=== PATIENT | female | born 1980 | race Caucasian/White ===

== ENCOUNTER 2021-04-22 13:43 | Emergency (ER) | payer SELFPAY ==
[2021-04-22] MEDS ORDERED: HYDROMORPHONE HCL 1 MG/ML INJ ONE (14:05)
[2021-04-22] MEDS ORDERED: ONDANSETRON 4 MG/2 ML VIAL ONE (14:05)
--- NOTE | 2021-04-22 15:08 | EDPHYS ---
Physician Documentation [facility] Ramirez Name: Julia Weekly Age: 40 yrs Sex: Female : 1980 Arrival Date: 04/22/2021 Time: 13:45 Bed 16 Private MD: ED Physician Mell Parrish HPI: 04/22 15:05 This 40 yrs old Female presents to ER via Wheelchair with complaints of Rectal Pain. ma2 15:05 Patient has chronic rectal prolapse, presents with rectal prolapse for 2 hours, that ma2 she has not been able to push inside.. 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 - Social history:: Smoking status: Patient reports the use of cigarette tobacco products, smokes one-half pack cigarettes per day. - Family history:: not pertinent. ROS: 15:05 Constitutional: Negative for fever, chills, and weight loss. ma2 15:05 All other systems are negative. Exam: 15:05 Constitutional: This is a well developed, well nourished patient who is awake, alert, ma2 and in no acute distress. Head/Face: Normocephalic, atraumatic. Eyes: Pupils equal round and reactive to light, extra-ocular motions intact. Lids and lashes normal. Conjunctiva and sclera are non-icteric and not injected. Cornea within normal limits. Periorbital areas with no swelling, redness, or edema. ENT: Nares patent. No nasal discharge, no septal abnormalities noted. Tympanic membranes are normal and external auditory canals are clear. Oropharynx with no redness, swelling, or masses, exudates, or evidence of obstruction, uvula midline. Mucous membranes moist. Chest/axilla: Normal chest wall appearance and motion. Nontender with no deformity. No lesions are appreciated. Cardiovascular: Regular rate and rhythm with a normal S1 and S2. No gallops, murmurs, or rubs. Normal PMI, no JVD. No pulse deficits. Respiratory: Lungs have equal breath sounds bilaterally, clear to auscultation and percussion. No rales, rhonchi or wheezes noted. No increased work of breathing, no retractions or nasal flaring. Abdomen/GI: Rectal prolapse, soft, non-tender, with normal bowel sounds. No distension or tympany. No guarding or rebound. No evidence of tenderness throughout. Back: No spinal tenderness. No costovertebral tenderness. Full range of motion. Skin: Warm, dry with normal turgor. Normal color with no rashes, no lesions, and no evidence of cellulitis. MS/ Extremity: Pulses equal, no cyanosis. Neurovascular intact. Full, normal range of motion. Neuro: Awake and alert, GCS 15, oriented to person, place, time, and situation. Cranial nerves II-XII grossly intact. Motor strength 5/5 in all extremities. Sensory grossly intact. Cerebellar exam normal. Normal gait. Vital Signs: 13:45 BP 134 / 77; Pulse 90; Resp 17; Temp 98.1(TE); Pulse Ox 99% ; Pain 9/10; eo2 13:47 BP 151 / 91; Pulse 96; Resp 16; Pulse Ox 99% on R/A; Weight 104.33 kg; Height 5 ft. 5 iw in. (165.10 cm); Pain 10/10; 15:14 BP 147 / 76; Pulse 87; Resp 15; Pulse Ox 100% ; Pain 6/10; eo2 13:47 Body Mass Index 38.27 (104.33 kg, 165.10 cm) iw MDM: 13:49 Patient medically screened. ma2 15:05 Differential diagnosis: Rectal prolapse manually pushed in. Data reviewed: vital signs, ma2 nurses notes. Counseling: I had a detailed discussion with the patient and/or guardian regarding: the historical points, exam findings, and any diagnostic results supporting the discharge/admit diagnosis, the presence of at least one elevated blood pressure reading (>120/80) during this emergency department visit, the need for outpatient follow up. Response to treatment: the patient's symptoms have markedly improved after treatment. Administered Medications: 13:59 Not Given (Physician Discretion): morphine 4 mg IVP once; RASS on ADMIN: Combtv4, Very eo2 Agttd3, Agttd2, Rstlss1, AlertClm0, Drwsy-1, Lt Sdtn-2, Mod Sdtn-3, Dp Sdtn-4, UnArsble-5 14:19 Drug: Zofran (Ondansetron) 4 mg Route: IVP; Site: right antecubital; eo2 15:15 Follow up: Response: No adverse reaction eo2 14:19 Drug: Dilaudid (HYDROmorphone) 1 mg Route: IVP; Site: right antecubital; eo2 15:15 Follow up: Response: No adverse reaction; Pain is decreased eo2 Disposition Summary: 04/22/21 15:07 Discharge Ordered Location: Home ma2 Condition: Stable ma2 Diagnosis - Rectal prolapse ma2 Followup: ma2 - With: Jordan Duffy MD - When: Tomorrow - Reason: If symptoms return, Continuance of care Discharge Instructions: - Discharge Summary Sheet ma2 - Rectal Prolapse, Adult ma2 Forms: - Medication Reconciliation Form ma2 - Thank You Letter ma2 - Antibiotic Education ma2 - Prescription Opioid Use ma2 Prescriptions: - ketorolac 10 mg Oral tablet - take 1 tablet by ORAL route every 6 hours not to exceed 40 mg in 24hrs; 30 ma2 tablet; Refills: 0, Product Selection Permitted Signatures: Pat Anderson RN RN iw Mell Parrish MD MD ma2 Yaritza Yun RN RN eo2
--- NOTE | 2021-04-22 15:08 | ER ---
Nurse's Notes [facility] Ramirez Name: Julia Weekly Age: 40 yrs Sex: Female : 1980 Arrival Date: 04/22/2021 Time: 13:45 Bed 16 Private MD: Diagnosis: Rectal prolapse Presentation: 04/22 13:45 Chief complaint: Patient states: prolapsed rectum X 2 hours, has happened several times iw in the past but she can usually get it to go back in. Coronavirus screen: At this time, the client does not indicate any symptoms associated with coronavirus-19. Ebola Screen: Patient negative for fever greater than or equal to 101.5 degrees Fahrenheit, and additional compatible Ebola Virus Disease symptoms Patient denies exposure to infectious person. Patient denies travel to an Ebola-affected area in the 21 days before illness onset. No symptoms or risks identified at this time. Initial Sepsis Screen: Does the patient meet any 2 criteria? No. Patient's initial sepsis screen is negative. Does the patient have a suspected source of infection? No. Patient's initial sepsis screen is negative. Risk Assessment: Do you want to hurt yourself or someone else? Patient reports no desire to harm self or others. Onset of symptoms was April 22, 2021. 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 - Social history:: Smoking status: Patient reports the use of cigarette tobacco products, smokes one-half pack cigarettes per day. - Family history:: not pertinent. Screenin:45 Abuse screen: Denies threats or abuse. Denies injuries from another. Nutritional eo2 screening: No deficits noted. Tuberculosis screening: No symptoms or risk factors identified. Fall Risk None identified. Assessment: 14:20 General: Appears uncomfortable, Behavior is crying. Pain: Complains of pain in rectum. eo2 Neuro: Level of Consciousness is awake, alert, obeys commands, Oriented to person, place, time, situation, Denies dizziness, headache. Cardiovascular: No deficits noted. Denies chest pain. Respiratory: No deficits noted. Breath sounds are clear bilaterally. Denies cough, shortness of breath. : Reports rectal prolapse for 2-3 hours. Vital Signs: 13:45 BP 134 / 77; Pulse 90; Resp 17; Temp 98.1(TE); Pulse Ox 99% ; Pain 9/10; eo2 13:47 BP 151 / 91; Pulse 96; Resp 16; Pulse Ox 99% on R/A; Weight 104.33 kg; Height 5 ft. 5 iw in. (165.10 cm); Pain 10/10; 15:14 BP 147 / 76; Pulse 87; Resp 15; Pulse Ox 100% ; Pain 6/10; eo2 13:47 Body Mass Index 38.27 (104.33 kg, 165.10 cm) iw ED Course: 13:45 Patient arrived in ED. ds1 13:45 Allergy band placed. Pulse ox on. NIBP on. Door closed. Noise minimized. Warm blanket eo2 given. 13:45 Verbal reassurance given. eo2 13:45 No provider procedures requiring assistance completed. eo2 13:46 Yaritza Yun, ALVIN is Primary Nurse. eo2 13:47 Triage completed. iw 13:47 Arm band placed on. iw 13:49 Mell Parrish MD is Attending Physician. ma2 14:18 Inserted saline lock: 22 gauge in right antecubital area, using aseptic technique. eo2 15:07 Jordan Duffy MD is Referral Physician. ma2 15:22 IV discontinued, intact. eo2 16:18 contacted pt about belongings that were left in the room after the pt left. was told to bd throw items in the trash. I did not throw them away, I sent the belongings to security. Administered Medications: 13:59 Not Given (Physician Discretion): morphine 4 mg IVP once; RASS on ADMIN: Combtv4, Very eo2 Agttd3, Agttd2, Rstlss1, AlertClm0, Drwsy-1, Lt Sdtn-2, Mod Sdtn-3, Dp Sdtn-4, UnArsble-5 14:19 Drug: Zofran (Ondansetron) 4 mg Route: IVP; Site: right antecubital; eo2 15:15 Follow up: Response: No adverse reaction eo2 14:19 Drug: Dilaudid (HYDROmorphone) 1 mg Route: IVP; Site: right antecubital; eo2 15:15 Follow up: Response: No adverse reaction; Pain is decreased eo2 Outcome: 15:07 Discharge ordered by . ma2 15:22 Discharged to home ambulatory. eo2 15:22 Condition: stable 15:22 Discharge instructions given to patient, Instructed on discharge instructions, follow up and referral plans. medication usage, Demonstrated understanding of instructions, follow-up care, medications, Prescriptions given X 1. 15:23 Patient left the ED. eo2 Signatures: Megan Juan Demi ds1 Pat Anderson, RN RN iw Mell Parrish MD MD ma2 Yaritza Yun RN RN eo2
[2021-04-22 15:45] VITALS: BP 147/76; O2SAT 100
[2021-04-22 15:55] VITALS: TEMP 98.1
== END 2021-04-22 15:23 | disposition home or self-care (01) ==
LOC: ER 13:43
DX: K62.3 Rectal prolapse (principal); F17.210 Nicotine dependence, cigarettes, uncomplicated
CPT/HCPCS: 96374; 96375; 99284; J1170; J2405

== ENCOUNTER 2021-04-25 01:51 | Emergency (ER) | payer SELFPAY ==
--- OUTSIDE RECORDS SUMMARY | 2021-04-25 01:55 | XMS REPORT | Continuity of Care Document ---
:1980 Author Organization [facility] t Address [address] [place] [address] [address] [place] [address] Care Team Providers Name Role Phone Unavailable Unavailable Unavailable Problems This patient has no known problems. Allergies, Adverse Reactions, Alerts This patient has no known allergies or adverse reactions. Medications This patient has no known medications. Procedures This patient has no known procedures. Results Test Description Test Time Test Comments Results Result Comments Source LIPID PANEL 2021-03-15 04:30:14 Test Item Value Reference Range Interpretation Comme nts CHOLESTEROL (test code = 2210) 186 MG/DL <200 TRIGLYCERIDES (test code = 2232) 149 MG/DL <150 HDL CHOLESTEROL (test code = 49 MG/DL >39 2219) CALC LDL CHOL (test code = 2237) 111 MG/DL <100 H NOTE: CALCULATED LDL IS BASED ON ABELARDO-BUCIO METHOD WHICHINCLUDES A DJUSTABLE TRIGLYCERIDE:VL DL CHOLESTEROL RATIO.THIS FACT OR VARIES BY MEASURED TRIGLY CERIDE AND NON-HDLCHOLESTE ROL CONCENTRATIONS WITH INCREASED CALCULATED LDL SEENIN HIGHER T RIGLYCERIDE OR LOWER NON-HDL S PECIMENS. FOR MOREINFORMATION , SEE CLIENT ANNOUNCEMENT AT [email or web address] [email or web address] LDL/HDL (test code = 2.27 RATIO <3.22 8) COMPREHENSIVE METABOLIC [id number] 04:30:14 Test Item Value Reference Range Interpretation Comments GLUCOSE (test code = 100 MG/DL 70-99 H 2216) BUN (test code = 14 MG/DL -2207) CREATININE (test 0.69 MG/DL 0.60-1.30 code = 2214) eGFR (2020 CKD-EPI) 112 >60 (test code = 77796) ML/MIN/1.73 CALC BUN/CREAT (test 20 RATIO - code = 2235) SODIUM (test code = 141 MEQ/L 969-025 6251) POTASSIUM (test code 4.4 MEQ/L 3.5-5.4 = 2227) CHLORIDE (test code 105 MEQ/L 95-107 = 2214) CARBON DIOXIDE (test 25 MEQ/L 19-31 code = 220) CALCIUM (test code = 9.5 MG/DL 8.5-10.5 2208) PROTEIN, TOTAL (test 7.3 G/DL 6.1-8.3 code = 2228) ALBUMIN (test code = 4.3 G/DL 3.5-5.2 2200) CALC GLOBULIN (test 3.0 G/DL 1.9-3.7 code = 2239) CALC A/G RATIO (test 1.4 RATIO 1.0-2.6 code = 223) BILIRUBIN, TOTAL 0.2 MG/DL See_Comment [Automated message] (test code = 220) The syste m which generated this result transmitted ref erence range: <=1.2. T he reference range was not used to int erpret this result as normal/abnormal . ALKALINE PHOSPHATASE 84 U/L 40-113 (test code = 2203) AST (test code = 16 U/L 9-40 2217) ALT (test code = 23 U/L 5-40 UNLE SS 2218) OTHERWISE INDIC ATED, ALL TESTING PER [facility], [address] [place] [address] LABORATORY DIRE CTOR: VALENTIN CRUZ M.D. CLIA NUMBER [id number] CAP ACCREDITATION N O. [id number]
--- NOTE | 2021-04-25 03:35 | EDPHYS ---
Physician Documentation [facility] Ramirez Name: Julia Weekly Age: 40 yrs Sex: Female : 1980 Arrival Date: 04/25/2021 Time: 01:57 Bed 7 Private MD: ED Physician Sarai Victor HPI: 04/25 02:37 This 40 yrs old Female presents to ER via Ambulatory with complaints of Arm Pain, Pedal sp3 Edema. 02:37 40-year-old female with a history of rectal prolapse seen here 3 days ago presents with sp3 left upper extremity antecubital swelling and pain and left lower extremity swelling. Patient states that the nursing staff had a hard time placing an IV and were "digging around". Patient has not injured her left lower extremity at all. No prior history of DVT/PE or travel history. No symptoms on the right side of the body at all. Patient denies headache, neck pain, shortness of breath, chest pain abdominal pain, nausea, vomiting, diarrhea, rash, or any other symptoms as a part of ROS at this time.. 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 Flu vaccine is not up to date. - Social history:: Smoking status: Patient reports the use of cigarette tobacco products, smokes one pack cigarettes per day. Patient/guardian denies using alcohol, street drugs, IV drugs. ROS: 02:39 Constitutional: Negative for fever, chills, and weight loss, Eyes: Negative for injury, sp3 pain, redness, and discharge, ENT: Negative for injury, pain, and discharge, Neck: Negative for injury, pain, and swelling, Cardiovascular: Negative for chest pain, palpitations, and edema, Respiratory: Negative for shortness of breath, cough, wheezing, and pleuritic chest pain, Abdomen/GI: Negative for abdominal pain, nausea, vomiting, diarrhea, and constipation, Back: Negative for injury and pain, Skin: Negative for injury, rash, and discoloration, Neuro: Negative for headache, weakness, numbness, tingling, and seizure, Psych: Negative for depression, anxiety, suicide ideation, homicidal ideation, and hallucinations, Allergy/Immunology: Negative for hives, rash, and allergies, Endocrine: Negative for neck swelling, polydipsia, polyuria, polyphagia, and marked weight changes. Exam: 02:39 Constitutional: This is a well developed, well nourished patient who is awake, alert, sp3 and in no acute distress. Head/Face: Normocephalic, atraumatic. Eyes: Pupils equal round and reactive to light, extra-ocular motions intact. Lids and lashes normal. Conjunctiva and sclera are non-icteric and not injected. Cornea within normal limits. Periorbital areas with no swelling, redness, or edema. ENT: Nares patent. No nasal discharge, no septal abnormalities noted. External auditory canals are clear. Oropharynx with no redness, swelling, or masses, exudates, or evidence of obstruction, uvula midline. Mucous membranes moist. Neck: Trachea midline, no thyromegaly or masses palpated, and no cervical lymphadenopathy. Supple, full range of motion without nuchal rigidity, or vertebral point tenderness. No Meningismus. Chest/axilla: Normal chest wall appearance and motion. Nontender with no deformity. No lesions are appreciated. Cardiovascular: Regular rate and rhythm with a normal S1 and S2. No gallops, murmurs, or rubs. Normal PMI, no JVD. No pulse deficits. Respiratory: Lungs have equal breath sounds bilaterally, clear to auscultation and percussion. No rales, rhonchi or wheezes noted. No increased work of breathing, no retractions or nasal flaring. Abdomen/GI: Soft, non-tender, with normal bowel sounds. No distension or tympany. No guarding or rebound. No evidence of tenderness throughout. Back: No spinal tenderness. No costovertebral tenderness. Full range of motion. Skin: Warm, dry with normal turgor. Normal color with no rashes, no lesions, and no evidence of cellulitis. Neuro: Awake and alert, GCS 15, oriented to person, place, time, and situation. Cranial nerves II-XII grossly intact. Motor strength 5/5 in all extremities. Sensory grossly intact. Cerebellar exam normal. Normal gait. Psych: Awake, alert, with orientation to person, place and time. Behavior, mood, and affect are within normal limits. 02:39 Musculoskeletal/extremity: Normal neurovascular exam all extremities. Left upper extremity is mildly swollen in the AC area without evidence of superficial thrombophlebitis, inflammation/infection, or any other findings. Left lower extremity is swollen with 2+ pitting edema up to the base of the knee. No symptoms on the right side of the body. No signs of trauma.. 02:40 ECG was reviewed by the Attending Physician. EKG demonstrates normal sinus rhythm at 93 sp3 bpm with normal intervals, normal axis, normal QRS, nonspecific diffuse ST/T changes without evidence of ischemia. Vital Signs: 02:10 BP 159 / 120; Pulse 100; Resp 19 S; Temp 97.9(TE); Pulse Ox 100% on R/A; Weight 104.33 lg3 kg (R); Height 5 ft. 5 in. (165.10 cm) (R); Pain 3/10; 02:27 Pain 0/10; tw5 02:41 BP 140 / 84; Pulse 96; Resp 16; Pulse Ox 100% ; tw5 03:39 BP 135 / 65; Pulse 90; Resp 16; Pulse Ox 100% on R/A; st1 02:10 Body Mass Index 38.27 (104.33 kg, 165.10 cm) lg3 MDM: 02:23 Patient medically screened. sp3 02:41 Data reviewed: vital signs, nurses notes. ED course: 40-year-old female with left upper sp3 extremity and left lower extremity swelling. Upper extremity potentially could be caused by superficial thrombophlebitis in the prior IV. Will obtain ultrasounds for both left upper and left lower extremities. I am not highly suspicious for ACS, PE, TAD, sepsis, shock, or any other critical findings at this time. If work-up is negative will discharge patient home.. 03:34 ED course: Patient is negative for DVT in left upper and left lower extremities. Will sp3 reassure and discharge patient home at this time.. 04/25 02:32 Order name: US Extremity Venous Unilateral Ltd sp3 04/25 02:32 Order name: EKG - Nurse/Tech; Complete Time: 02:41 sp3 04/25 02:57 Order name: UPPER EXTREMITY VENOUS UNILATE EDMS Administered Medications: No medications were administered Disposition Summary: 04/25/21 03:35 Discharge Ordered Location: Home sp3 Condition: Stable sp3 Diagnosis - Edema, unspecified sp3 Followup: sp3 - With: Private Physician - When: As needed - Reason: If symptoms return Discharge Instructions: - Discharge Summary Sheet sp3 - Edema, [id number] sp3 Forms: - Medication Reconciliation Form sp3 - Thank You Letter sp3 - Antibiotic Education sp3 - Prescription Opioid Use sp3 Signatures: Dispatcher [employer] EDMS Sarai Victor MD MD sp3 Tala Walker 5 Corrections: (The following items were deleted from the chart) 02:57 02:33 Extremity Venous Uni Ltd+[email or web address].RAD.[email or web address] ordered. EDMS EDMS
--- NOTE | 2021-04-25 03:35 | ER ---
Nurse's Notes [facility] Name: Julia Weekly Age: 40 yrs Sex: Female : 1980 Arrival Date: 04/25/2021 Time: 01:57 Bed 7 Private MD: Diagnosis: Edema, unspecified Presentation: 04/25 02:10 Chief complaint: Patient states: bilateral foot and ankle swelling. left arm pain. lg3 states was seen here 3 days ago for rectal prolapse and has been swelling ever since. Coronavirus screen: Client denies travel out of the [place] in the last 14 days. At this time, the client does not indicate any symptoms associated with coronavirus-19. Ebola Screen: No symptoms or risks identified at this time. Initial Sepsis Screen: Does the patient meet any 2 criteria? Systolic BP < 90 mmHg. No. Patient's initial sepsis screen is negative. Does the patient have a suspected source of infection? No. Patient's initial sepsis screen is negative. Risk Assessment: Do you want to hurt yourself or someone else? Patient reports no desire to harm self or others. Onset of symptoms was April 22, 2021. 02:10 Method Of Arrival: Ambulatory lg3 02:10 Acuity: ANGEL 3 lg3 Triage Assessment: 02:10 General: Appears in no apparent distress. comfortable, Behavior is calm, cooperative. lg3 Pain: Complains of pain in right foot and left foot, right ankle and left ankle, left arm. EENT: No deficits noted. No signs and/or symptoms were reported regarding the EENT system. Neuro: No deficits noted. Level of Consciousness is awake, alert, obeys commands, Oriented to person, place, time, situation. Cardiovascular: No deficits noted. Respiratory: No deficits noted. Airway is patent Trachea midline Respiratory effort is even, unlabored, Respiratory pattern is regular, symmetrical. GI: No deficits noted. No signs and/or symptoms were reported involving the gastrointestinal system. Abdomen is round non-distended. : No deficits noted. No signs and/or symptoms were reported regarding the genitourinary system. Derm: No deficits noted. Skin is intact, is healthy with good turgor, Skin is dry, SYEDA foot/ankle swelling. Musculoskeletal: No deficits noted. Circulation, motion, and sensation intact. Range of motion: intact in all extremities. 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 Flu vaccine is not up to date. - Social history:: Smoking status: Patient reports the use of cigarette tobacco products, smokes one pack cigarettes per day. Patient/guardian denies using alcohol, street drugs, IV drugs. Screenin:23 Abuse screen: Denies threats or abuse. Denies injuries from another. Nutritional lg3 screening: No deficits noted. Tuberculosis screening: No symptoms or risk factors identified. Fall Risk None identified. Assessment: 02:26 Reassessment: Patient appears in no apparent distress at this time. Patient is alert, tw5 oriented x 3, equal unlabored respirations, skin warm/dry/pink. Left leg and foot swelling. Vital Signs: 02:10 BP 159 / 120; Pulse 100; Resp 19 S; Temp 97.9(TE); Pulse Ox 100% on R/A; Weight 104.33 lg3 kg (R); Height 5 ft. 5 in. (165.10 cm) (R); Pain 3/10; 02:27 Pain 0/10; tw5 02:41 BP 140 / 84; Pulse 96; Resp 16; Pulse Ox 100% ; tw5 03:39 BP 135 / 65; Pulse 90; Resp 16; Pulse Ox 100% on R/A; st1 02:10 Body Mass Index 38.27 (104.33 kg, 165.10 cm) lg3 ED Course: 01:57 Patient arrived in ED. wm 02:15 Patient has correct armband on for positive identification. Placed in gown. Bed in low st1 position. Call light in reach. Side rails up X 1. 02:17 Zakia Sofia, ALVIN is Primary Nurse. kd3 02:18 Sarai Victor MD is Attending Physician. sp3 02:21 Triage completed. lg3 02:22 Arm band placed on right wrist. tw5 02:25 No provider procedures requiring assistance completed. tw5 03:36 US Extremity Venous Unilateral Ltd Sent. st1 03:36 UPPER EXTREMITY VENOUS UNILATE Sent. st1 03:39 Patient did not have IV access during this emergency room visit. st1 04:02 US Extremity Venous Unilateral Ltd In Process Unspecified. EDMS 04:02 UPPER EXTREMITY VENOUS UNILATE In Process Unspecified. EDMS Administered Medications: No medications were administered Outcome: 03:35 Discharge ordered by . sp3 03:39 Discharged to home ambulatory. st1 03:39 Condition: good 03:39 Discharge instructions given to patient, Instructed on discharge instructions, follow up and referral plans. Demonstrated understanding of instructions, follow-up care. 03:45 Patient left the ED. st1 Signatures: Dispatcher [employer] EDMS Belle Miller, RN RN lg3 Zahraa Rojas Sarai Victor MD MD sp3 Tala Walker 5 Zakia Sofia RN RN kd3 Henna Chavira, RN RN st1 Corrections: (The following items were deleted from the chart) 03:07 03:06 Reassessment: st1 st1 03:40 02:00 Patient has correct armband on for positive identification. Fall risk band st1 placed. Placed in gown. Bed in low position. Call light in reach. Side rails up X 1. st1
--- NOTE | 2021-04-25 07:04 | RAD REPORT ---
EXAM DESCRIPTION: US - Extremity Venous Uni Ltd - 04/25/2021 4:03 am CLINICAL HISTORY: Swelling COMPARISON: None. TECHNIQUE: Real-time sonographic evaluation of the left lower extremity deep venous system was perfo rmed. FINDINGS: Normal compressibility, flow augmentation, phasic flow and spontaneous flow is identified in the left lower extremity deep venous system. No intraluminal filling defects seen. IMPRESSION: No DVT in the left lower extremity.
--- NOTE | 2021-04-25 07:06 | RAD REPORT ---
EXAM DESCRIPTION: US - UPPER EXTREMITY VENOUS UNILATE - 04/25/2021 4:03 am CLINICAL HISTORY: SWELLING COMPARISON: Extremity Venous Uni Ltd dated 04/25/2021 FINDINGS: Color Doppler, grayscale, and spectral analysis was performed. Note that some of the image s are mislabeled as arteries. Patent left internal jugular, left subclavian, left axillary, left brachial, left basilic, left ulnar , left radial veins are patent. IMPRESSION: No venous thrombosis in the left upper extremity.
[2021-04-25 07:47] VITALS: O2SAT 100
[2021-04-25 07:49] VITALS: TEMP 97.9
[2021-04-25 07:50] VITALS: BP 135/65
--- NOTE | 2021-04-25 11:29 | EKG ---
Test Date: 2021-04-25 Test Time: 02:36:46 Manager Of Photography: MOLLY MEASUREMENT RESULTS: Intervals: Rate: 93 OK: 134 QRSD: 82 QT: 388 QTc: 482 [place]: P: 23 OK: 134 QRS: 35 T: 20 INTERPRETIVE STATEMENTS: Normal sinus rhythm Normal ECG No previous ECG available for comparison Electronically Signed On 04-25-21 11:28:48 DIESEL TRACTOR OPERATOR by Naveed Gillespie
== END 2021-04-25 03:45 | disposition home or self-care (01) ==
LOC: ER 01:51
DX: R60.9 Edema, unspecified (principal); F17.210 Nicotine dependence, cigarettes, uncomplicated
CPT/HCPCS: 93005; 93971; 99283

== ENCOUNTER 2021-12-21 01:06 | Emergency (ER) | payer BC, SELFPAY ==
--- OUTSIDE RECORDS SUMMARY | 2021-12-21 01:10 | XMS REPORT | Continuity of Care Document ---
:1980 Author Organization [facility] t Address [address] [place] [address] Care Team Providers Name Role Phone Pcp, Patient Does Not Have A Primary Care Physician +[id number] DUY WOODRUFF Attending Clinician Unavailable Duy Woodruff MD Attending Clinician YOKASTA HERNANDEZ Attending Clinician Unavailable Duc Rodriguez CRNA Attending Clinician Shi [place] MD Attending Clinician Doctor Unassigned, [place] Attending Clinician Unavailable DUY WOODRUFF Admitting Clinician Unavailable Duy Woodruff MD Admitting Clinician Payers Payer Name Policy Type Policy Number Effective Date Expiration Date Melba BILLY BCBS BLUE [id number] 2021 ADVANTAGE HMO 00:00:00 Problems Condition Condition Condition Status Onset Resolution Last Treating Co mments Source Name Details Category Date Date Treatment Clinician Date Morbid Morbid Disease Active 2021-02 Univers obesity obesity 0-21 ity of with [place] mass index mass index 00 Me dical of of Branch 40.0-49.9 40.0-49.9 Constipati Constipati Disease Active U nivers on on 06-23 ity of 00:00: [place] [address] Medical Branch Rectal Rectal Disease Active Univers prolapse prolapse 06-22 ity of 00:00: [place] [address] Medical Branch Allergies, Adverse Reactions, Alerts Allergy Allergy Status Severity Reaction(s) Onset Inactive Treating Comm ents Source Name Type Date Date Clinician NO KNOWN Drug Active Univers ALLERGIE Class ity of S [facility] Social History Social Habit Start Date Stop Date Quantity Comments Source History of Cigarette Smoker Universi ty of tobacco use [facility] Exposure to 2021-11-25 2021-12-05 Not sure University of SARS-CoV-2 00:00:00 14:20:00 [facility] (event) Branch Tobacco use and 2021-12-05 2021-12-05 Smokeless tobacco Un iversity of exposure 00:00:00 00:00:00 non-user [facility] Tobacco Comment 2021-12-05 2021-12-05 Trying to quit Unive rsity of 00:00:00 00:00:00 [facility] Sex Assigned At [birth year] Universit y of 00:00:00 00:00:00 [facility] Smoking Status Start Date Stop Date Source Occasional tobacco smoker 2021-12-05 00:00:00 Un iversity of [facility] Tobacco smoking consumption Univ ersity of [facility] unknown Branch Medications Ordered Filled Start Stop Current Ordering Indication Dosage Frequency Signature Comments Components Source Medication Medication Date Date Medication? Clinician (SIG) Name Name lactated 2021-02 Yes 1000mL at 100 Unive rs ringers IV 0-21 mL/hr, ity of infusion 18:15: 1,000 [place] 1[place]000 [place] 00 IV Medical Infusion, Branch CONTINUOUS , Starting on Wed12/12/21 at 1315, Until Discontinu ed, Routine, PACU lactated 2021-02- No 1000mL at 100 Univ ers ringers IV 0-21 10-21 mL/hr, ity of infusion 18:15: 21:14 1,000 mL, [place] 1,000 mL 00 :53 IV Medical Infusion, Branch CONTINUOUS , Starting on Wed12/12/21 at 1315, Until Wed12/12/21 at 1614, Routine, PACU ondansetron 2021-02 Yes 4mg 4 mg, Slow Univers (ZOFRAN 0-21 IV Push, ity of (PF)) 18:06: PRN, 1 [place] injection 4 04 dose, Medical mg Starting Branch on Wed12/12/21 at 1306, Until Discontinu ed, Routine, Nausea and Vomiting (N/V), PACU ondansetron 2021-02- No 4mg 4 mg, Slow Univers (ZOFRAN 012-12 IV Push, ity of (PF)) 18:06: 21:14 PRN, 1 [place] injection 4 04 :53 dose, Medical mg Starting Branch on Wed12/12/21 at 1306, Until Wed12/12/21 at 1614, Routine, Nausea and Vomiting (N/V), PACU lidocaine 2021-02- No Slow IV Univ ers 1% 012-12 Push, ONCE ity of (XYLOCAINE) 17:20: 17:45 INTRA [place] 100 mg/10 00 :09 PROCEDURE, Medi dalia mL (1 %) Starting Branch injection on Wed12/12/21 at 1220, Until Wed12/12/21 at 1245, Routine, Intra-op propofoL IV 2021-02- No IV Unive rs infusion 012-12 Infusion, ity o f 17:20: 17:45 ONCE INTRA [place] 00 :09 PROCEDURE, Medical Starting Branch on Wed12/12/21 at 1220, Until Wed12/12/21 at 1245, Routine, Intra-op propofoL IV 2021-02- No IV Unive rs infusion 012-12 Infusion, ity o f 17:20: 17:45 CONTINUOUS [place] 00 :09 PRN, Medical Starting Branch on Wed12/12/21 at 1220, Until Wed12/12/21 at 1245, Routine, Intra-op lactated 2021-02- No IV Univers ringers IV 012-12 Infusion, ity of infusion 16:58: 17:45 [place]INUOUS [place] 00 :09 PRN, Medical Starting Branch on Wed12/12/21 at 1158, Until Wed12/12/21 at 1245, Routine, Intra-op midazolam 2021-02- No IV Push, Uni vers (VERSED) 0- ONCE INTRA ity of injection 16:58: 17:45 PROCEDURE, [place] 00 :09 Starting Medical on Fri Branch 12/12/21 at 1158, Until Wed12/12/21 at 1245, Routine, Intra-op water for 2021-02- No PRN, Univers irrigation 012-12 Starting ity of irrigation 16:03: 18:05 on Fri [place] solution 00 :12 12/12/21 Medical at 1103, Branch Until Wed12/12/21 at 1305, Routine, Intra-op simethicone 2021-02- No PRN, Unive rs (GAS RELIEF 0-21 12-12 Starting ity of (SIMETHICON 16:03: 18:05 on Fri [place] as E)) 40 00 :12 12/12/21 Medical mg/0.6 mL at 1103, Branch drops Until Wed12/12/21 at 1305, Routine, Intra-op lactated 2021-02- No 1000mL at 42 Unive rs ringers IV 0-21 10-21 mL/hr, ity of infusion 14:30: 14:36 1,000 mL, [place] 1,000 mL 00 :00 IV Medical Infusion, Branch ONCE, 1 dose, On Wed12/12/21 at 0930, Routine, DSU Pre-op lactated 2021-02- No 1000mL at 42 Unive rs ringers IV 0-21 10-21 mL/hr, ity of infusion 14:30: 14:36 1,000 mL, [place] 1,000 mL 00 :00 IV Medical Infusion, Branch ONCE, 1 dose, On Wed12/12/21 at 0930, Routine, DSU Pre-op meloxicam 2021-02 Yes 7.5mg Take 7.5 Uni vers 7.5 mg 0-21 mg by ity of tablet 14:14: mouth in [place] [address] the Medical morning Branch and 7.5 mg in the evening. lisinopriL 2021-02 Yes 10mg Take 10 mg U nivers 10 mg 0-21 by mouth ity of tablet 14:14: in the [place] [address] morning. [facility] Er meloxicam 2021-02 Yes 7.5mg Take 7.5 Uni vers 7.5 mg 0-21 mg by ity of tablet 14:14: mouth in [place] [address] the [facility] morning Branch and 7.5 mg in the evening. lisinopriL 2021-02 Yes 10mg Take 10 mg U nivers 10 mg 0-21 by mouth ity of tablet 14:14: in the [place] [address] morning. [facility] Er meloxicam 2021-02 Yes 7.5mg Take 7.5 Uni vers 7.5 mg 0-21 mg by ity of tablet 14:14: mouth in [place] [address] the Medical morning Branch and 7.5 mg in the evening. lisinopriL 2021-02 Yes 10mg Take 10 mg U nivers 10 mg 0-21 by mouth ity of tablet 14:14: in the [place] [address] morning. Medical Branch meloxicam 2021-02 Yes 7.5mg Take 7.5 Uni vers 7.5 mg 0-21 mg by ity of tablet 14:14: mouth in [place] [address] the Medical morning Branch and 7.5 mg in the evening. lisinopriL 2021-02 Yes 10mg Take 10 mg U nivers 10 mg 0-21 by mouth ity of tablet 14:14: in the [place] [address] morning. Medical Branch sodium,pota 2021-02- Yes 117mL Take 117 Univers ssium,mag 0-11 10-12 mL by ity of sulfates 00:00: 04:59 mouth once [place] 17.5-3.13-1 00 :00 now for 1 Med ical .6 gram dose. Branch sodium,pota 2021-02- No 117mL Take 117 Univers ssium,mag 0-11 10-12 mL by ity of sulfates 00:00: 04:59 mouth once [place] 17.5-3.13-1 00 :00 now for 1 Med ical .6 gram dose. Branch sodium,pota 2021-02- No 117mL Take 117 Univers ssium,mag 0-11 10-12 mL by ity of sulfates 00:00: 04:59 mouth once [place] 17.5-3.13-1 00 :00 now for 1 Med ical .6 gram dose. Branch polyethylen Yes 17g Take 17 g U nivers e glycol 5-01 by mouth ity of (MIRALAX) 00:00: daily. Medical gram/dose Branch powder mineral oil Yes 30mL Take 30 mL Univers oral liquid 5-01 by mouth ity of 00:00: daily. [place] [facility] polyethylen Yes 17g Take 17 g U nivers e glycol 5-01 by mouth ity of (MIRALAX) 00:00: daily. [place] Medical gram/dose Branch powder mineral oil 2018-0 Yes 30mL Take 30 mL Univers oral liquid 5-01 by mouth ity of 00:00: daily. Medical Branch polyethylen 2018-0 Yes 17g Take 17 g U nivers e glycol 5-01 by mouth ity of (MIRALAX) 00:00: daily. Medical gram/dose Branch powder mineral oil 2018-0 Yes 30mL Take 30 mL Univers oral liquid 5-01 by mouth ity of 00:00: daily. Medical Branch polyethylen 2018-0 Yes 17g Take 17 g U nivers e glycol 5-01 by mouth ity of (MIRALAX) 00:00: daily. Medical gram/dose Branch powder mineral oil 2018-0 Yes 30mL Take 30 mL Univers oral liquid 5-01 by mouth ity of 00:00: daily. Medical Branch polyethylen 2018-0 Yes 17g Take 17 g U nivers e glycol 5-01 by mouth ity of (MIRALAX) 00:00: daily. Medical gram/dose Branch powder mineral oil 2018-0 Yes 30mL Take 30 mL Univers oral liquid 5-01 by mouth ity of 00:00: daily. Medical Branch polyethylen 2018-0 Yes 17g Take 17 g U nivers e glycol 5-01 by mouth ity of (MIRALAX) 00:00: daily. Medical gram/dose Branch powder mineral oil 2018-0 Yes 30mL Take 30 mL Univers oral liquid 5-01 by mouth ity of 00:00: daily. Medical Branch polyethylen 2018-0 Yes 17g Take 17 g U nivers e glycol 5-01 by mouth ity of (MIRALAX) 00:00: daily. Medical gram/dose Branch powder mineral oil 2018-0 Yes 30mL Take 30 mL Univers oral liquid 5-01 by mouth ity of 00:00: daily. [address] Vital Signs Vital Name Observation Time Observation Value Comments Source Systolic blood 2021-12-12 18:07:00 119 mm[Hg] Univer sity of pressure [facility] Diastolic blood 2021-12-12 18:07:00 90 mm[Hg] Unive rsity of pressure [facility] Respiratory rate 2021-12-12 18:07:00 20 /min Univ ersity of [place] [facility] Oxygen saturation in 2021-12-12 18:07:00 96 /min University of Arterial blood by [place] Medi dalia Pulse oximetry Branch Body temperature 2021-12-12 17:47:00 36.39 Marbella Univ ersity of [place] [facility] Heart rate 2021-12-12 14:23:00 88 /min Universi ty of [place] [facility] Body height 2021-12-02 15:52:00 165.1 cm Universi ty of [place] [facility] Body weight 2021-12-02 15:52:00 120.9 kg Universi ty of [place] [facility] BMI 2021-12-02 15:52:00 44.35 kg/m2 Universi ty of [place] [facility] Respiratory rate 2021-12-12 17:42:00 27 /min Univ ersity of [place] [facility] Systolic blood 2021-12-12 14:23:00 160 mm[Hg] Univer sity of pressure [place] [facility] Diastolic blood 2021-12-12 14:23:00 96 mm[Hg] Unive rsity of pressure [place] [facility] Heart rate 2021-12-12 14:23:00 88 /min Universi ty of [place] [facility] Body temperature 2021-12-12 14:23:00 36.61 Marbella Univ ersity of [place] [facility] Respiratory rate 2021-12-12 14:23:00 20 /min Univ ersity of [place] [facility] Oxygen saturation in 2021-12-12 14:23:00 93 /min University of Arterial blood by [place] Medi dalia Pulse oximetry Branch Body height 2021-12-02 15:52:00 165.1 cm Universi ty of [place] [facility] Body weight 2021-12-02 15:52:00 120.9 kg Universi ty of [place] [facility] BMI 2021-12-02 15:52:00 44.35 kg/m2 Universi ty of [place] [facility] Body height 2021-11-28 16:32:00 165.1 cm Universi ty of [place] [facility] Body weight 2021-11-28 16:32:00 120.929 kg Universi ty of [place] [facility] BMI 2021-11-28 16:32:00 44.36 kg/m2 Universi ty of [place] [facility] Oxygen saturation in 2021-11-28 16:32:00 100 /min University of Arterial blood by [place] Medi dalia Pulse oximetry Branch Systolic blood 2021-11-28 16:32:00 160 mm[Hg] Univer sity of pressure [facility] Diastolic blood 2021-11-28 16:32:00 100 mm[Hg] Unive rsity of pressure [facility] Heart rate 2021-11-28 16:32:00 100 /min [facility] Body temperature 2021-11-28 16:32:00 36.61 Marbella [facility] Respiratory rate 2021-11-28 16:32:00 18 /min [facility] Procedures Procedure Date / Time Performed Performing Clinician Sour e COLONOSCOPY 2021-12-12 16:51:00 Duy Woodruff [facility] COLONOSCOPY (ENDO) 2021-12-12 13:22:32 Duy Woodruff [facility] COLONOSCOPY (ENDO) 2021-12-12 13:22:32 Duy Woodruff [facility] DAY SURGERY - ADC 2021-12-12 05:01:00 Doctor Unassigned, No [facility] Encounters Start End Encounter Admission Attending Care Care Encounter Source Date/Time Date/Time Type Type Clinicians Facility Department ID 2021-12-12 2021-12-12 Outpatient R BELTRAN [facility] PATY [id number] Univers 09:13:00 13:50:00 DUY tanya [facility] 2021-12-12 2021-12-12 [facility] [id number] Univers 09:13:00 13:50:00 Encounter Duy BHAKTA [id number] Becky HEARN [id number] [facility] SURGICAL [id number] Med [facility] CENTER 071 Branch 2021-12-12 2021-12-12 Outpatient R [facility] [id number] Univers 13:00:00 13:00:00 YOKASTA montero [facility] 2021-12-12 2021-12-12 Anesthesia Duc Rodriguez [facility] [id number] Univers 12:02:00 12:45:00 Event Shi [place] [id number] [place] [id number] [place] [id number] [facility] 020 Branch 2021-12-12 2021-12-12 Surgery Beltran [facility] [id number] Univers 11:29:00 12:27:00 Duy BHAKTA [id number] i ty of [place] [id number] [place] SUR[place] [id number] [facility] 020 Branch 2021-12-12 2021-12-12 Orders Doctor DUY [id number] Univers 00:00:00 00:00:00 Only Unassigned, DANYEL [id number] ity of [place] [facility] [id number] Jose as [id number] [facility] 009 Branch 2021-12-02 2021-12-02 Prep For Beltran [facility] [id number] Univers 00:00:00 00:00:00 Surgery Duy MONKJOSE E [id number] i ty of [place] [id number] [place] PROFESSIO [id number] La dical NAL 188 [facility] 2021-11-28 2021-11-28 Outpatient R BELTRAN [facility] [id number] Univers 11:00:00 13:34:25 DUY montero of [facility] 2021-11-28 2021-11-28 [facility] [id number] Univers 11:00:00 13:34:25 Visit Duy BHAKTA [id number] i ty of [place] [id number] [place] PROFESS[place] [id number] La dical N[place] 188 [facility] Results Test Description Test Time Test Comments Results Result Comments Source HEMOGLOBIN A1c 2021-11-05 06:57:19 Test Item Value Reference Range Interpretation Comme nts HEMOGLOBIN A1c (test code = 5.9 % 4.2-5.6 H UNLESS OTHERWISE INDICATED, ALL 46215) TESTING PERFORM ED ATCLINICAL PATHOLOGY [employer] [address] [place] [id number] JUNIOR ACCOUNT EXECUTIVE: VALENTIN LION M.D. CLIA NUMBER [id number] CAP ACCREDITATION N O. [id number] CBC W/AUTO DIFF WITH [id number] 06:22:08 Test Item Value Reference Range Interpretation Comments WBC (test code = 13.0 K/UL 3.5-11.0 H 1001) RBC (test code = 4.99 M/UL 3.80-5.40 1002) HEMOGLOBIN (test code 15.2 G/DL 11.5-15.5 = 1003) HEMATOCRIT (test code 45.9 % 34.0-45.0 H = 1004) MCV (test code = 92.0 fL 80.0-99.0 1005) MCH (test code = 30.5 PG 25.0-33.0 1006) MCHC (test code = 33.1 G/DL 31.0-36.0 1007) RDW (test code = 12.4 % 11.5-15.0 1038) NEUTROPHILS (test 72.3 % code = 1008) LYMPHOCYTES (test 21.4 % code = 1010) MONOCYTES (test code 4.7 % = 1011) EOSINOPHILS (test 0.6 % code = 1012) BASOPHILS (test code 0.5 % = 1013) IMMATURE GRANULOCYTES 0.5 % (test code = 1036) NUCLEATED RBCS (test 0.0 /100 WBC'S See_Comment [Aut omated code = 1065) message] The sy stem which generated this result transmitted reference range : 0.0. The refere nce range was not u sed to interpret th is result as normal/abnormal . PLATELET COUNT (test 346 K/UL 130-400 code = 1015) ABSOLUTE NEUTROPHILS 9.39 K/UL 1.50-7.50 H (test code = 1066) ABSOLUTE LYMPHOCYTES 2.78 K/UL 1.00-4.00 (test code = 1067) ABSOLUTE MONOCYTES 0.61 K/UL 0.20-1.00 (test code = 1068) ABSOLUTE EOSINOPHILS 0.08 K/UL 0.00-0.50 (test code = 1040) ABSOLUTE BASOPHILS 0.06 K/UL 0.00-0.20 (test code = 1069) ABS IMMATURE 0.06 K/UL 0.00-0.10 GRANULOCYTES (test code = 1020) ABS NUCLEATED RBCS 0.00 K/UL 0.00-0.11 (test code = 06189) COMPREHENSIVE METABOLIC [id number] 04:34:32 Test Item Value Reference Range Interpretation Comments GLUCOSE (test code = 112 MG/DL 70-99 H 2216) BUN (test code = 14 MG/DL 6-20 2207) CREATININE (test 0.77 MG/DL 0.60-1.30 code = 2214) eGFR (2020 CKD-EPI) 99 ML/MIN/1.73 >60 (test code = 03982) CALC BUN/CREAT (test 18 RATIO 6-28 code = 2235) SODIUM (test code = 139 MEQ/L 958-218 7702) POTASSIUM (test code 3.9 MEQ/L 3.5-5.4 = 2227) CHLORIDE (test code 104 MEQ/L 95-107 = 2214) CARBON DIOXIDE (test 22 MEQ/L 19-31 code = 220) CALCIUM (test code = 8.9 MG/DL 8.5-10.5 2208) PROTEIN, TOTAL (test 7.4 G/DL 6.1-8.3 code = 222) ALBUMIN (test code = 4.4 G/DL 3.5-5.2 2200) CALC GLOBULIN (test 3.0 G/DL 1.9-3.7 code = 224) CALC A/G RATIO (test 1.5 RATIO 1.0-2.6 code = 2234) BILIRUBIN, TOTAL 0.3 MG/DL See_Comment [Automated message] (test code = 220) The syste m which generated this result transmit chata reference range : <=1.2. The refe rence range was not u sed to interpret th is result as normal/abnormal . ALKALINE PHOSPHATASE 102 U/L 40-113 (test code = 2204) AST (test code = 29 U/L 9-40 2217) ALT (test code = 48 U/L 5-40 H 2218) LIPID [id number] 04:34:32 Test Item Value Reference Range Interpretation Comments CHOLESTEROL (test 215 MG/DL <200 H code = 2210) TRIGLYCERIDES (test 107 MG/DL <150 code = 2232) HDL CHOLESTEROL (test 52 MG/DL >39 code = 2220) CALC LDL CHOL (test 141 MG/DL <100 H NOTE: C ALCULATED LDL code = 2237) IS BASED ON ABELARDO-BUCIO METHOD WHICHINCLUDES ADJUSTABLE TRIGLYCERIDE:VL DL CHOLESTEROL RAT IO.THIS FACTOR VARIES B Y MEASURED TRIGLY CERIDE AND NON-HDLCHOL ESTEROL CONCENTRATIONS WITH INCREASED CALCU LATED LDL SEENIN HIGH ER TRIGLYCERIDE OR LOWER NON-HDL SPECIME NS. FOR MOREINFORMATION , SEE CLIENT ANNOUNCE MENT AT [email or web address] [email or web address] LDL/HDL 2.71 RATIO <3.22 (test code = 2238) LIPID [id number] 04:30:14 Test Item Value Reference Range Interpretation Comments CHOLESTEROL (test 186 MG/DL <200 code = 2210) TRIGLYCERIDES (test 149 MG/DL <150 code = 2232) HDL CHOLESTEROL (test 49 MG/DL >39 code = 2220) CALC LDL CHOL (test 111 MG/DL <100 H NOTE: C ALCULATED LDL code = 2237) IS BASED ON [employer] METHOD WHICHINCLUDES ADJUSTABLE TRIGLYCERIDE:VL DL CHOLESTEROL RAT IO.THIS FACTOR VARIES B Y MEASURED TRIGLY CERIDE AND NON-HDLCHOL ESTEROL CONCENTRATIONS WITH INCREASED CALCU LATED LDL SEENIN HIGH ER TRIGLYCERIDE OR LOWER NON-HDL SPECIME NS. FOR MOREINFORMATION , SEE CLIENT ANNOUNCE MENT AT [email or web address] [email or web address] LDL/HDL 2.27 RATIO <3.22 (test code = 2238) COMPREHENSIVE METABOLIC [id number] 04:30:14 Test Item Value Reference Range Interpretation Comments GLUCOSE (test code = 100 MG/DL 70-99 H 2216) BUN (test code = 14 MG/DL 6-20 2207) CREATININE (test 0.69 MG/DL 0.60-1.30 code = 2214) eGFR (2020 CKD-EPI) 112 >60 (test code = 92123) ML/MIN/1.73 CALC BUN/CREAT (test 20 RATIO 6-28 code = 2235) SODIUM (test code = 141 MEQ/L 683-562 7474) POTASSIUM (test code 4.4 MEQ/L 3.5-5.4 = 2227) CHLORIDE (test code 105 MEQ/L 95-107 = 2214) CARBON DIOXIDE (test 25 MEQ/L 19-31 code = 220) CALCIUM (test code = 9.5 MG/DL 8.5-10.5 2208) PROTEIN, TOTAL (test 7.3 G/DL 6.1-8.3 code = 222) ALBUMIN (test code = 4.3 G/DL 3.5-5.2 2200) CALC GLOBULIN (test 3.0 G/DL 1.9-3.7 code = 2240) CALC A/G RATIO (test 1.4 RATIO 1.0-2.6 code = 2234) BILIRUBIN, TOTAL 0.2 MG/DL See_Comment [Automated message] (test code = 220) The [employer] which generated this result transmitted ref erence range: <=1.2. T he reference range was not used to int erpret this result as normal/abnormal . ALKALINE PHOSPHATASE 84 U/L 40-113 (test code = 220) AST (test code = 16 U/L 9-40 2217) ALT (test code = 23 U/L 5-40 UNLESS OTH ERWISE 2218) INDICATED, ALL TESTING PERFORM ED ATCLINICAL PATH [facility]LOGY [facility], [place] [address] [place] [id number] [place] [address] DIRECTOR: VALENTIN LION M.D. CLIA NUMBER [id number] CAP ACCREDITATION N O. [id number]
[2021-12-21] MEDS ORDERED: PROMETH/COD 6.25/10MG SYRUP 5ML ONE (02:30)
[2021-12-21] MEDS ORDERED: KETOROLAC 30 MG/ML INJ ONE (02:30)
[2021-12-21] MEDS ORDERED: LIDOCAINE 4% PATCH ONE (02:31)
--- NOTE | 2021-12-21 04:15 | ER ---
Nurse's Notes [facility] Ramirez Name: Julia Weekly Age: 40 yrs Sex: Female : 1980 Arrival Date: 12/21/2021 Time: 01:12 Bed 5 Private MD: Diagnosis: Cough;Left sided rib pain Presentation: 12/21 02:04 Chief complaint: Patient states: "For the past two days I have been having a cough then tw5 it makes my side hurt. It only hurts left side. It feels like a pocket of air, or swollen. I cannot lay down on that side. and it hurts to pick stuff up.". Coronavirus screen: Vaccine status: Patient reports receiving the 2nd dose of the covid vaccine. unknown. Ebola Screen: Patient negative for fever greater than or equal to 101.5 degrees Fahrenheit, and additional compatible Ebola Virus Disease symptoms Patient denies exposure to infectious person. Patient denies travel to an Ebola-affected area in the 21 days before illness onset. Initial Sepsis Screen: Does the patient meet any 2 criteria? RR > 20 per min. HR > 90 bpm. Does the patient have a suspected source of infection? Yes:. Risk Assessment: Do you want to hurt yourself or someone else? Patient reports no desire to harm self or others. Onset of symptoms was December 19, 2021. 02:04 Method Of Arrival: Ambulatory tw5 02:04 Acuity: ANGEL 3 tw5 Triage Assessment: 02:06 General: Appears uncomfortable, Behavior is cooperative, appropriate for age. Pain: tw5 Complains of pain in left upper quadrant and left lower quadrant Pain currently is 9 out of 10 on a pain scale. 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 - Social history:: Smoking status: Patient/guardian denies using tobacco, Stopped _ months ago 1. Screenin:47 Abuse screen: Denies threats or abuse. Denies injuries from another. Nutritional as6 screening: No deficits noted. Tuberculosis screening: No symptoms or risk factors identified. Fall Risk None identified. Assessment: 02:30 General: Appears uncomfortable, Behavior is cooperative, restless. as6 02:30 Pain: Complains of pain in left breast. Pain: Complains of pain in left upper quadrant. as6 Neuro: Level of Consciousness is awake, alert, obeys commands. Cardiovascular: Patient's skin is warm and dry. Respiratory: Reports cough that is Respiratory effort is even, unlabored. Vital Signs: 02:04 BP 154 / 125; Pulse 106; Resp 24; Temp 98.0; Pulse Ox 97% on R/A; Weight 117.93 kg; tw5 Height 5 ft. 5 in. (165.10 cm); Pain 9/10; 04:49 BP 145 / 74; Pulse 94; Resp 18 S; Pulse Ox 97% on R/A; as6 02:04 Body Mass Index 43.27 (117.93 kg, 165.10 cm) tw5 ED Course: 01:12 Patient arrived in ED. bp1 02:04 Mirian Smith MD is Attending Physician. sd2 02:06 Triage completed. tw5 02:06 Arm band placed on right wrist. tw5 02:09 Radames Styles, ALVIN is Primary Nurse. as6 03:21 XRAY Ribs LEFT In Process Unspecified. EDMS 04:50 Placed in gown. Bed in low position. Call light in reach. Side rails up X2. as6 04:50 No provider procedures requiring assistance completed. Patient did not have IV access as6 during this emergency room visit. Administered Medications: 02:45 Drug: Ketorolac 60 mg Route: IM; Site: right vastus lateralis; as6 04:50 Follow up: Response: No adverse reaction as6 02:45 Drug: Lidoderm Patch 5 % (700 mg/patch) 1 patches Route: Topical; Site: affected area; as6 04:50 Follow up: Response: No adverse reaction as6 02:45 Drug: Phenergan (promethazine) -Codeine Liquid (6.25mg - 10mg / 5mL) 10 ml Route: PO; as6 04:50 Follow up: Response: No adverse reaction as6 04:49 Drug: Methocarbamol 750 mg Route: PO; as6 04:50 Follow up: Response: No adverse reaction as6 Medication: 04:50 VIS not applicable for this client. as6 Outcome: 04:15 Discharge ordered by . sd2 04:50 Discharged to home ambulatory. as6 04:50 Condition: stable 04:50 Discharge instructions given to patient, Instructed on discharge instructions, follow up and referral plans. medication usage, Demonstrated understanding of instructions, follow-up care, medications, Prescriptions given X 3. 04:51 Patient left the ED. as6 Signatures: Dispatcher [employer] EDMS Eleni Moore Tiffany tw5 Radames Styles, RN RN as6 Mirian Smith MD MD sd2
--- NOTE | 2021-12-21 04:15 | EDPHYS ---
Physician Documentation [facility] Name: Julia Weekly Age: 40 yrs Sex: Female : 1980 Arrival Date: 12/21/2021 Time: 01:12 Bed 5 Private MD: ED Physician Mirian Smith HPI: 12/21 03:04 This 40 yrs old Female presents to ER via Ambulatory with complaints of Painful Cough. sd2 03:04 40 yo F presents with CC of L sided rib pain and cough. Reports ongoing cough x2 weeks. sd2 Has had negative COVID and flu swabs. Recent sick contact with bronchitis. Reports pain has progressively worsened and that she felt a "pop" in the area 2-3 times with coughing and is concerned for injury. Has been taking OTC cough medications with no relief. Has not taken any OTC pain relief medications. Has tried ice and heat. Denies fevers, vomiting. . 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 - Social history:: Smoking status: Patient/guardian denies using tobacco, Stopped _ months ago 1. ROS: 03:04 Constitutional: Negative for fever, chills, and weight loss, Eyes: Negative for injury, sd2 pain, redness, and discharge, Cardiovascular: Negative for chest pain, palpitations, and edema. 03:04 Cardiovascular: Positive for L chest wall pain Abdomen/GI: Negative for abdominal pain, nausea, vomiting MS/Extremity: Negative for injury and deformity, Skin: Negative for injury, rash, and discoloration, Neuro: Negative for headache, numbness and tingling. 03:04 Respiratory: Positive for cough, Negative for shortness of breath, wheezing. Exam: 03:04 Constitutional: This is a well developed, well nourished patient who is awake, alert, sd2 and in no acute distress. Head/Face: Normocephalic, atraumatic. Eyes: EOMI, normal conjunctiva bilaterally Chest/axilla: Normal chest wall appearance and motion. TTP over the L lateral lower rib, localized to one rib with no associated crepitus Cardiovascular: Regular rate and rhythm with a normal S1 and S2. No gallops, murmurs, or rubs. 2+ distal pulses. Respiratory: Lungs have equal breath sounds bilaterally, clear to auscultation and percussion. No rales, rhonchi or wheezes noted. No increased work of breathing, no retractions or nasal flaring. Abdomen/GI: Soft, non-tender, with normal bowel sounds. No guarding or rebound. No evidence of tenderness throughout. Skin: Warm, dry with normal turgor. Normal color with no rashes, no lesions, and no evidence of cellulitis. MS/ Extremity: Pulses equal, no cyanosis. Neurovascular intact. Full, normal range of motion. Ambulatory without difficulty. Psych: Awake, alert, with orientation to person, place and time. Behavior, mood, and affect are within normal limits. 03:04 ECG was reviewed by the Attending Physician. NSR, rate 95, no STEMI criteria sd2 Vital Signs: 02:04 BP 154 / 125; Pulse 106; Resp 24; Temp 98.0; Pulse Ox 97% on R/A; Weight 117.93 kg; tw5 Height 5 ft. 5 in. (165.10 cm); Pain 9/10; 04:49 BP 145 / 74; Pulse 94; Resp 18 S; Pulse Ox 97% on R/A; as6 02:04 Body Mass Index 43.27 (117.93 kg, 165.10 cm) tw5 MDM: 02:13 Patient medically screened. sd2 03:04 Differential Diagnosis: Other Rib fracture, contusion, spasm, strain, ACS, bronchitis sd2 among others. Data reviewed: vital signs, nurses notes. 04:13 Data reviewed: EKG, radiologic studies. Counseling: I had a detailed discussion with sd2 the patient and/or guardian regarding: the historical points, exam findings, and any diagnostic results supporting the discharge/admit diagnosis, radiology results, the need for outpatient follow up, to return to the emergency department if symptoms worsen or persist or if there are any questions or concerns that arise at home. Medical screen evaluation completed. EMTALA emergency medical condition absent. ED course: Imaging reviewed with no acute injuries noted or evidence of infection. Pt's cough and pain improved with treatment. Will plan for continued supportive care for home and outpatient follow up. Pt verbalizes understanding of discharge plan and strict return precautions.. 12/21 02:25 Order name: MARGARET Ribs LEFT sd2 12/21 02:25 Order name: EKG - Nurse/Tech; Complete Time: 02:45 sd2 Administered Medications: 02:45 Drug: Ketorolac 60 mg Route: IM; Site: right vastus lateralis; as6 04:50 Follow up: Response: No adverse reaction as6 02:45 Drug: Lidoderm Patch 5 % (700 mg/patch) 1 patches Route: Topical; Site: affected area; as6 04:50 Follow up: Response: No adverse reaction as6 02:45 Drug: Phenergan (promethazine) -Codeine Liquid (6.25mg - 10mg / 5mL) 10 ml Route: PO; as6 04:50 Follow up: Response: No adverse reaction as6 04:49 Drug: Methocarbamol 750 mg Route: PO; as6 04:50 Follow up: Response: No adverse reaction as6 Disposition Summary: 12/21/21 04:15 Discharge Ordered Location: Home sd2 Problem: an ongoing problem sd2 Symptoms: have improved sd2 Condition: Stable sd2 Diagnosis - Cough sd2 - Left sided rib pain sd2 Followup: sd2 - With: Private Physician - When: 2 - 3 days - Reason: Recheck today's complaints, Continuance of care, Re-evaluation by your physician Discharge Instructions: - Discharge Summary Sheet sd2 - Rib Contusion sd2 - Cough, Adult sd2 Forms: - Medication Reconciliation Form sd2 - Thank You Letter sd2 - Antibiotic Education sd2 - Prescription Opioid Use sd2 Prescriptions: - Ibuprofen 800 mg Oral Tablet - take 1 tablet by ORAL route every 8 hours As needed take with food; 20 tablet; sd2 Refills: 0, Product Selection Permitted - Guaifenesin AC 10-100 mg/5 mL Oral Liquid - take 10 milliliters by ORAL route every 6 hours As needed; 240 milliliter; sd2 Refills: 0, Product Selection Permitted - methocarbamol 750 mg Oral Tablet - take 1 tablet by ORAL route every 8 hours As needed; 15 tablet; Refills: 0, sd2 Product Selection Permitted Signatures: Dispatcher [employer] Tala Gutierrez tw5 Radames Styles RN RN as6 Mirian Smith, MD sd2
[2021-12-21] MEDS ORDERED: methocarbamoL 500 MG TAB ONE (04:46)
[2021-12-21 04:55] VITALS: TEMP 98; O2SAT 97
[2021-12-21 04:56] VITALS: BP 145/74
--- NOTE | 2021-12-22 15:59 | EKG ---
Test Date: 2021-12-21 Test Time: 02:39:36 Electronic Engraver: MEASUREMENT RESULTS: Intervals: Rate: 95 MT: 128 QRSD: 86 QT: 390 QTc: 490 Nabb: P: 36 MT: 128 QRS: 59 T: 37 INTERPRETIVE STATEMENTS: Normal sinus rhythm Prolonged QT Abnormal ECG Compared to ECG 04/25/2021 02:36:46 Prolonged QT interval now present Electronically Signed On 12-22-21 15:57:18 CDT by Cosme West
--- NOTE | 2021-12-23 15:33 | RAD REPORT ---
EXAM DESCRIPTION: RAD - Ribs Left - 12/21/2021 3:19 am CLINICAL HISTORY: 40 years, Female, L lateral rib COMPARISON: None. FINDINGS: 3 X-ray views of the left ribs were performed. No prior films are available at this time f or comparison. Evaluation of the lungs demonstrate no evidence for pneumothorax. The left ribs ribs demonstrate to b e intact with no evidence for significant cortical breakthrough that will suggest fracture. There is no evidence for pleural effusion and/or abnormal areas of airspace opacity that will suggest lung con tusion. The rest of the visualized portions of the soft tissue and bony structures demonstrate to be unremarkable. IMPRESSION: No evidence for left rib fracture. Electronically signed by: Rick Gr MD 12/21/2021 4:01 AM CDT Due to temporary technical issues with the PACS/Fluency reporting system, reports are being signed by the in house radiologists without review as a courtesy to insure prompt reporting. The interpreting radiologist is fully responsible for the content of the report.
== END 2021-12-21 04:51 | disposition home or self-care (01) ==
LOC: ER 01:06
DX: R05.9 Cough, unspecified (principal); R07.81 Pleurodynia
CPT/HCPCS: 93005; 71100; 96372; 99283; J2001

== ENCOUNTER 2022-01-08 23:01 | Emergency (ER) | payer BC ==
--- OUTSIDE RECORDS SUMMARY | 2022-01-08 23:03 | XMS REPORT | Continuity of Care Document ---
:1980 Author Organization [facility] t Address [address] [place] [address] [address] [place] [address] Care Team Providers Name Role Phone Unavailable [...] % 4.2-5.6 H UNLESS OTHERWISE INDICATED, ALL [id number]) TESTING PERFORM ED ATCLINICAL PATHOLOGY [facility]. [address] [place] [id number] SENIOR QA ENGINEER: VALENTIN LION M.D. CLIA NUMBER [id number] CAP ACCREDITATION N O. [id number] CBC W/AUTO DIFF WITH [id number] 06:22:08 Test Item Value Reference Range Interpretation [...] RBCS 0.00 K/UL 0.00-0.11 (test code = 44548) COMPREHENSIVE METABOLIC [id number] 04:34:32 Test Item Value Reference Range Interpretation Comments GLUCOSE (test code = 112 MG/DL 70-99 H 2216) BUN (test code = 14 MG/DL 6-20 2207) CREATININE (test 0.77 MG/DL 0.60-1.30 code = 2214) eGFR (2020 CKD-EPI) 99 ML/MIN/1.73 >60 (test code = 87900) CALC BUN/CREAT (test 18 RATIO 6-28 code = 2235) SODIUM (test code = 139 MEQ/L 157-166 8868) POTASSIUM (test code 3.9 MEQ/L 3.5-5.4 = 2227) CHLORIDE (test code 104 MEQ/L 95-107 = 2214) CARBON DIOXIDE (test 22 MEQ/L 19-31 code = 2206) CALCIUM (test code = 8.9 MG/DL 8.5-10.5 2208) PROTEIN, TOTAL (test 7.4 G/DL 6.1-8.3 code = 2229) ALBUMIN (test code = 4.4 G/DL 3.5-5.2 2200) CALC GLOBULIN (test 3.0 G/DL 1.9-3.7 code = 2240) CALC A/G RATIO (test 1.5 RATIO 1.0-2.6 code = 2234) BILIRUBIN, TOTAL 0.3 MG/DL See_Comment [Automated message] (test code = 2206) The syste m which generated this result transmit chata reference range : <=1.2. The refe rence range was not u sed to interpret th is result as normal/abnormal . ALKALINE PHOSPHATASE 102 U/L 40-113 (test code = 2203) AST (test code = 29 U/L 9-40 2217) ALT (test code = 48 U/L 5-40 H 2218) LIPID [id number] 04:34:32 Test Item Value Reference Range Interpretation [...] MOREINFORMATION , SEE CLIENT ANNOUNCE MENT AT [email or web address] LDL/HDL 2.71 RATIO <3.22 (test code = 2238) LIPID [id number] 04:30:14 Test Item Value Reference Range Interpretation [...] MOREINFORMATION , SEE CLIENT ANNOUNCE MENT AT [email or web address] LDL/HDL 2.27 RATIO <3.22 (test code = 223) COMPREHENSIVE METABOLIC [id number] 04:30:14 Test Item Value Reference Range Interpretation Comments GLUCOSE (test code = 100 MG/DL 70-99 H 2216) BUN (test code = 14 MG/DL 6-20 2207) CREATININE (test 0.69 MG/DL 0.60-1.30 code = 221) eGFR (2020 CKD-EPI) 112 >60 (test code = 34354) ML/MIN/1.73 CALC BUN/CREAT (test 20 RATIO 6-28 code = 2235) SODIUM (test code = 141 MEQ/L 907-393 9287) POTASSIUM (test code 4.4 MEQ/L 3.5-5.4 = [...] PERFORM [facility] [place] [address] [place] [address] YAHAIRA CHISHOLM DIRECTOR: VALENTIN LION M.D. IA NUMBER [id number] [facility] ACCREDITATION N O. [id number]
[2022-01-09] MEDS ORDERED: BENZONATATE 100 MG CAP PO ONE (00:08)
[2022-01-09] MEDS ORDERED: IBUPROFEN 400 MG TAB ONE (00:08)
--- NOTE | 2022-01-09 01:41 | ER ---
Nurse's Notes [facility] Ramirez Name: Julia Weekly Age: 41 yrs Sex: Female : 1980 Arrival Date: 01/08/2022 Time: 23:14 Bed 18 Private MD: Diagnosis: Influenza due to unidentified influenza virus with other respiratory manifestations Presentation: 01/08 23:35 Chief complaint: Patient states: Cough, congestion, chills, body aches, headache since kb3 this morning. Coronavirus screen: Vaccine status: Patient reports receiving the 2nd dose of the covid vaccine. Client denies travel out of the [place] in the last 14 days. Ebola Screen: Patient negative for fever greater than or equal to 101.5 degrees Fahrenheit, and additional compatible Ebola Virus Disease symptoms Patient denies exposure to infectious person. Patient denies travel to an Ebola-affected area in the 21 days before illness onset. Initial Sepsis Screen: Does the patient meet any 2 criteria? No. Patient's initial sepsis screen is negative. Does the patient have a suspected source of infection? No. Patient's initial sepsis screen is negative. Risk Assessment: Do you want to hurt yourself or someone else? Patient reports no desire to harm self or others. Onset of symptoms was January 08, 2022 at 08:00. 23:35 Method Of Arrival: Ambulatory kb3 23:35 Acuity: ANGEL 4 kb3 Triage Assessment: 23:38 General: Appears ill, Behavior is calm, cooperative. Pain: Complains of pain in head, kb3 chest, right arm, left arm, right leg and left leg Pain does not radiate. Pain currently is 8 out of 10 on a pain scale. Quality of pain is described as aching. Respiratory: Reports cough that is Breath sounds are clear. 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 - Social history:: Smoking status: Patient denies any tobacco usage or history of. Screenin/18 00:00 Abuse screen: Denies threats or abuse. Nutritional screening: No deficits noted. vc1 Tuberculosis screening: No symptoms or risk factors identified. Fall Risk None identified. Assessment: 01:51 Reassessment: Patient and/or family updated on plan of care and expected duration. Pain vc1 level reassessed. Patient is alert, oriented x 3, equal unlabored respirations, skin warm/dry/pink. Patient states feeling better. Patient states symptoms have improved. Cardiovascular: Patient's skin is warm and dry. Respiratory: Airway is patent Respiratory effort is even, unlabored, Respiratory pattern is regular, symmetrical, tachypnea. Vital Signs: 01/08 23:35 Pulse 107; Resp 22; Temp 98.7; Pulse Ox 95% ; Weight 117.93 kg; Height 5 ft. 5 in. kb3 (165.10 cm); Pain 8/10; 01/09 01:51 BP 176 / 119; Pulse 102; Resp 22; Pulse Ox 94% on R/A; vc1 01/08 23:35 Body Mass Index 43.27 (117.93 kg, 165.10 cm) kb3 01:51 normal for patient; she didn't take her BP med, will take when she returns home vc1 ED Course: 01/08 23:14 Patient arrived in ED. dt4 23:20 Andres Spears MD is Attending Physician. kdr 23:38 Triage completed. kb3 23:38 Arm band placed on right wrist. kb3 23:47 Dimas Caputo PA is PHCP. cp 01/09 00:00 Bed in low position. Call light in reach. Pulse ox on. NIBP on. vc1 00:17 COVID-19 SARS RT PCR Sent. vc1 00:17 Strep Sent. vc1 00:17 Flu Sent. vc1 00:18 Julee Guerra, ALVIN is Primary Nurse. vc1 01:50 No provider procedures requiring assistance completed. Patient did not have IV access vc1 during this emergency room visit. Administered Medications: 00:17 Drug: Ibuprofen 800 mg Route: PO; vc1 00:17 Drug: Tessalon Perle (benzonatate) 200 mg Route: PO; vc1 Medication: 01:51 VIS not applicable for this client. vc1 Outcome: 01:40 Discharge ordered by . cp 02:02 Discharged to home ambulatory. vc1 02:02 Condition: good 02:02 Discharge instructions given to patient, Instructed on discharge instructions, follow up and referral plans. medication usage, Demonstrated understanding of instructions, follow-up care, medications, Prescriptions given X 3. 02:02 Patient left the ED. vc1 Signatures: Andres Spears MD MD kdr Dimas Caputo PA PA cp Calcote, Vanessa RN RN vc1 Denisse Madison RN RN kb3 Shari Lopez dt4
--- NOTE | 2022-01-09 01:41 | EDPHYS ---
Physician Documentation [facility] Name: Julia Weekly Age: 41 yrs Sex: Female : 1980 Arrival Date: 01/08/2022 Time: 23:14 Bed 18 Private MD: ED Physician Andres Spears HPI: 01/08 23:30 This 41 yrs old Female presents to ER via Ambulatory with complaints of Cough, cp Congestion, Headache, Dizziness. 23:30 The patient or guardian reports cough, that is intermittent. Onset: The cp symptoms/episode began/occurred this morning. Severity of symptoms: in the emergency department the symptoms are unchanged, despite home interventions. Associated signs and symptoms: Pertinent positives: sore throat, headache, body aches, congestion, Pertinent negatives: diarrhea, fever, vomiting. 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 - Social history:: Smoking status: Patient denies any tobacco usage or history of. ROS: 23:35 Constitutional: Positive for body aches, Negative for fever, poor PO intake. cp 23:35 Eyes: Negative for injury, pain, redness, and discharge. cp 23:35 ENT: Positive for sore throat, Negative for drainage from ear(s), ear pain, difficulty swallowing, difficulty handling secretions. 23:35 Cardiovascular: Negative for chest pain, edema, palpitations. 23:35 Respiratory: Positive for cough, "sounds productive", Negative for shortness of breath, wheezing. 23:35 Abdomen/GI: Negative for abdominal pain, vomiting, diarrhea, constipation. 23:35 Neuro: Positive for headache, Negative for altered mental status, weakness. 23:35 All other systems are negative. Exam: 23:40 Constitutional: The patient appears in no acute distress, alert, awake, cp non-diaphoretic, non-toxic, well developed, well nourished, obese. 23:40 Head/Face: Normocephalic, atraumatic. cp 23:40 Eyes: Periorbital structures: appear normal, Conjunctiva: normal, no exudate, no injection, Lids and lashes: appear normal, bilaterally. 23:40 ENT: External ear(s): are unremarkable, Ear canal(s): are normal, clear, TM's: dullness, bilaterally, Nose: is normal, Mouth: Lips: moist, Oral mucosa: moist, Posterior pharynx: Airway: no evidence of obstruction, patent, Tonsils: with erythema, no enlargement, no exudate, erythema, that is mild, exudate, is not appreciated. 23:40 Neck: ROM/movement: is normal, is supple, no meningismus, no nuchal rigidity. 23:40 Chest/axilla: Inspection: normal. 23:40 Cardiovascular: Rate: tachycardic, Rhythm: regular. 23:40 Respiratory: the patient does not display signs of respiratory distress, Respirations: normal, no use of accessory muscles, no retractions, labored breathing, is not present, Breath sounds: decreased breath sounds, are not appreciated, stridor, is not appreciated, + upper airway congestion. wheezing: is not appreciated. 23:40 Abdomen/GI: Exam negative for discomfort, distension, guarding, Inspection: abdomen appears normal. 23:40 Neuro: Orientation: to person, place \\T\\ time. Mentation: is normal, Motor: moves all fours, strength is normal, Gait: is steady. Vital Signs: 23:35 Pulse 107; Resp 22; Temp 98.7; Pulse Ox 95% ; Weight 117.93 kg; Height 5 ft. 5 in. kb3 (165.10 cm); Pain 8/; 01/09 01:51 BP 176 / 119; Pulse 102; Resp 22; Pulse Ox 94% on R/A; vc1 01/08 23:35 Body Mass Index 43.27 (117.93 kg, 165.10 cm) kb3 01:51 normal for patient; she didn't take her BP med, will take when she returns home vc1 MDM: 00:00 Differential Diagnosis: Bronchitis Influenza Pharyngitis Otitis Media Pneumonia Other cp influenza, COVID-19, strep throat. 01:40 Patient medically screened. cp 01:40 Data reviewed: vital signs, nurses notes, lab test result(s). cp 01:40 Counseling: I had a detailed discussion with the patient and/or guardian regarding: the cp historical points, exam findings, and any diagnostic results supporting the discharge/admit diagnosis, lab results, to return to the emergency department if symptoms worsen or persist or if there are any questions or concerns that arise at home. ED course: VS noted. Patient appears non-toxic and no signs of respiratory distress. Will discharge to home for continued monitoring. 01/08 23:23 Order name: Flu; Complete Time: 01:35 mw2 01/09 01:35 Interpretation: Reviewed. cp 01/08 23:23 Order name: Strep; Complete Time: 01:35 mw2 01/09 01:35 Interpretation: Reviewed. cp 01/08 23:23 Order name: COVID-19 SARS RT PCR; Complete Time: 01:28 mw2 01/09 01:28 Interpretation: Reviewed. cp 01/09 01:32 Order name: Throat Culture EDMS Administered Medications: 00:17 Drug: Ibuprofen 800 mg Route: PO; vc1 00:17 Drug: Tessalon Perle (benzonatate) 200 mg Route: PO; vc1 Disposition Summary: 01/09/22 01:40 Discharge Ordered Location: Home cp Problem: new cp Symptoms: have improved cp Condition: Stable cp Diagnosis - Influenza due to unidentified influenza virus with other respiratory manifestations cp Followup: cp - With: Private Physician - When: 2 - 3 days - Reason: Recheck today's complaints Discharge Instructions: - Discharge Summary Sheet cp - Influenza, Adult cp Forms: - Medication Reconciliation Form cp - Thank You Letter cp - Antibiotic Education cp - Prescription Opioid Use cp Prescriptions: - Bromfed DM 2-30-10 mg/5 mL Oral syrup - take 10 milliliter by ORAL route every 4 hours; 180 milliliter; Refills: 0, cp Product Selection Permitted - Tamiflu 75 mg Oral Capsule - take 1 tablet by ORAL route every 12 hours for 5 days; 10 tablet; Refills: 0, cp Product Selection Permitted - Ibuprofen 800 mg Oral Tablet - take 1 tablet by ORAL route every 8 hours As needed take with food; 30 tablet; cp Refills: 0, Product Selection Permitted Signatures: Dispatcher [facility] EDNM Dimas Caputo PA PA cp Calcote, Vanessa RN RN vc1 Los, Denisse, RN RN kb3
[2022-01-09 02:18] VITALS: TEMP 98.7
[2022-01-09 02:22] VITALS: BP 176/119; O2SAT 94
== END 2022-01-09 02:02 | disposition home or self-care (01) ==
LOC: ER 23:01
DX: J11.1 Influenza due to unidentified influenza virus with other respiratory manifestations (principal); Z20.822 Contact with and (suspected) exposure to COVID-19; I10 Essential (primary) hypertension
CPT/HCPCS: 87070; 87081; 87804 ×2; 99284; U0003

== ENCOUNTER 2023-12-21 19:52 | Emergency (ER) | payer MEDICARE ==
--- OUTSIDE RECORDS SUMMARY | 2023-12-21 19:59 | XMS REPORT | Continuity of Care Document ---
Author Name Unknown Address [address] [facility] [place] [place] [address] [facility] thconnect Address [address] [facility] [place] [place] [address] Care Team Providers Care Fingernail Former Name Role Phone PratherDianarafael Primary Care Physician [phone] Donita Davis MD Attending Clinician [phone] DONITA DAVIS Attending Clinician Unavailable GAVIN RIOS Attending Clinician Unavailable Doctor Unassigned, [place] Attending Clinician U MORENA Moore Attending Clinician Unavailable Morena Rios MD Attending Clinician [phone] JULIEN SHELLEY Attending Clinician Unavailable MARC DYKES Attending Clinician Unavailable MARC DYKES Attending Clinician Unavailable Chapis Day RN Attending Clinician Unavail Maral Mulligan RN Attending Clinician UnavailCarlos Santos MD Attending Clinician SHELLIE ARNETT Attending Clinician Unavailable Shellie Arnett MD Attending Clinician [phone] YAMILE ANAND Attending Clinician Unavailable Yamile Anand NP Attending Clinician [phone] Adalberto ESQUIVEL, Violette De La Rosa Attending Clinician Unavailable Nayeli Unger PT Attending Clinician Unavailab LEANN Potts Attending Clinician Unavailroverto Casillas MD, Leann Alvarado Attending Clinician Ariel ESQUIVEL, Odalys Taylor Attending Clinician [phone] DUY WOODRUFF Attending Clinician Unavail Duy Bishop MD Attending Clinician Duc Rodriguez CRNA Attending Clinician [phone] Shi Dallas MD Attending Clinician [phone] MORENA RIOS Admitting Clinician Unavailable Morena Rios MD Admitting Clinician [phone] SHELLIE ARNETT Admitting Clinician Unavailable YAMILE ANAND Admitting Clinician Unavailable DUY WOODRUFF Admitting Clinician Unavail Duy Bishop MD Admitting Clinician Payers Payer Name Policy Type Policy Number Effective Date Expirati on Date Source Problems Condition Name Condition Details Condition Category Status Onset Date Resolution Date Last Treatment Date Treating Clinician Comments Source History of colostomy reversal History of colostomy reversal Disease Active 10-12 00:00: 00 [facility] Parastomal hernia without obstructio n or gangrene Parastomal hernia without obstructio n or gangrene Disease Active -30 00:00: 00 [facility] Colostomy care Colostomy care Disease Active 1-20 00:00: 00 [facility] HTN (hypertens ion) HTN (hypertens ion) Disease Active 2021-02- 00:00: 00 [facility] Morbid obesity with body mass index of 40.0-49.9 Morbid obesity with body mass index of 40.0-49.9 Disease Active 2021-02 0- 00:00: 00 [facility] Constipati on Constipati on Disease Active 06-23 00:00: 00 [facility] Rectal prolapse Rectal prolapse Disease Active 06-22 00:00: 00 [facility] Allergies, Adverse Reactions, Alerts Allergy Name Allergy Type Status Severity Reaction(s) Onset Date Inactive Date Treating Clinician Comments Source NO KNOWN ALLERGIE S Drug Class Active Univers [facility] Social History Social Habit Start Date Stop Date Quantity Comments Source Gender identity Univ ersity [facility] Sexual orientation U niversity [facility] History SDOH Social Connections Get Together [facility] History SDOH Social Connections [facility] History SDOH Social Connections Membership [facility] History SDOH Social Connections Meetings [facility] History of tobacco use Passive smoker [facility] History of Social function 2022-10-12 00:00:00 2022-10-12 00:00:00 [facility] History SDOH Alcohol Frequency 2022-07-06 00:00:00 2022-07-06 00:00:00 1 [facility] History SDOH Social Connections Phone 2022-07-06 00:00:00 2022-07-06 00:00:00 5 [facility] History SDOH Social Connections Living 2022-07-06 00:00:00 2022-07-06 00:00:00 3 [facility] History SDOH Physical Activity DPW 2022-07-06 00:00:00 2022-07-06 00:00:00 0 [facility] History SDOH Physical Activity MPS 2022-07-06 00:00:00 2022-07-06 00:00:00 0 [facility] History SDOH Financial 2022-07-06 00:00:00 2022-07-06 00:00:00 5 [facility] History SDOH Food Worry 2022-07-06 00:00:00 2022-07-06 00:00:00 1 [facility] History SDOH Food Scarcity 2022-07-06 00:00:00 2022-07-06 00:00:00 1 [facility] History SDOH Transport Med 2022-07-06 00:00:00 2022-07-06 00:00:00 2 [facility] History SDOH Transport Non-Med 2022-07-06 00:00:00 2022-07-06 00:00:00 2 [facility] History SDOH Housing Unable to Pay 2022-07-06 00:00:00 2022-07-06 00:00:00 2 [facility] History SDOH Housing Places Lived 2022-07-06 00:00:00 2022-07-06 00:00:00 1 [facility] History SDOH Housing Homeless Last Year 2022-07-06 00:00:00 2022-07-06 00:00:00 2 [facility] Exposure to SARS-CoV-2 (event) 2022-06-23 00:00:00 2022-07-03 16:16:00 Not sure [facility] History SDOH Alcohol Std Drinks 2022-02-24 00:00:00 2022-02-24 00:00:00 0 [facility] History SDOH Alcohol Binge 2022-02-24 00:00:00 2022-02-24 00:00:00 1 [facility] Tobacco use and exposure 2022-02-24 00:00:00 2022-02-24 00:00:00 Smokeless tobacco non-user [facility] Tobacco Comment 2021-12-05 00:00:00 2021-12-05 00:00:00 Trying to quit [facility] Sex assigned at 1980 00:00:00 1980 00:00:00 [facility] Smoking Status Start Date Stop Date Source Ex-smoker 2022-02-24 00:00:00 2022-02-24 00:00:00 [facility] Occasional tobacco smoker 2021-12-05 00:00:00 [facility] Tobacco smoking consumption unknown [facility] Medications Ordered Medication Name Filled Medication Name Start Date Stop Date Current Medication? Ordering Clinician Indication Dosage Frequency Signature (SIG) Comments Components Source naltrexone 50 mg tablet 04-26 13:28: 53 Yes 50mg Take 1 tablet by mouth in the morning. [facility] buPROPion XL 150 mg 24 hr tablet 04-26 13:28: 53 Yes 150mg Take 1 tablet by mouth in the morning. [facility] oxyCODONE 5 mg immediate release tablet 2022-02 011 00:00: 00 Yes [id number] 5mg Take 1 tablet by mouth every 4 (four) hours as needed for Pain (scale 7-10). Indication s: acute pain [facility] semaglutide (OZEMPIC SC) 2022-02 09:03: 23 11-26 00:00 :00 No inject under the skin. [facility] gabap[facility] 300 mg capsule 2022-02 00:00: 00 Yes [id number] 300mg Take 1 capsule by mouth in the morning and 1 capsule at noon and 1 capsule in the evening. [facility] ity [facility] ibuprofen 800 mg tablet 2022-02 00:00: 00 Yes [id number] 800mg Take 1 tablet by mouth every 8 (eight) hours. [facility] ity [facility] methocarbam oL 750 mg tablet 2022-02 00:00: 00 Yes [id number] 750mg Take 1 tablet by mouth 4 (four) times daily. [facility] oxyCODONE 5 mg immediate release tablet 2022-02 00:00: 00 12-02 00:00 :00 No [id number] 5mg Take 1 tablet by mouth every 4 (four) hours as needed for Pain (scale 7-10). Indication s: acute pain [facility] oxyCODONE 5 mg immediate release tablet 11-17 00:00: 00 11-26 00:00 :00 No [id number] 5mg Take 1 tablet by mouth every 4 (four) hours as needed for Pain (scale 7-10). Indication s: acute pain [facility] oxyCOD[facility] 5 mg immediate release tablet 11-07 00:00: 00 11-17 00:00 :00 No [id number] 5mg Take 1 tablet by mouth every 4 (four) hours as needed for Pain (scale 7-10). Indication s: acute pain [facility] oxyCOD[facility] immediate release tablet 5 mg 10-29 13:31: 31 10-29 15:15 :02 No [id number] 5mg Univer s ity [facility] semaglutide (OZEMPIC SC) 10-29 08:15: 22 Yes inject under the skin. [facility] gabapentin 300 mg capsule 10-29 00:00: 00 11-26 00:00 :00 No [id number] 300mg Take 1 capsule by mouth in the morning and 1 capsule at noon and 1 capsule in the evening. [facility] methocarbam oL 750 mg tablet 10-29 00:00: 11-26 00:00 :00 No [id number] 750mg Take 1 tablet by mouth 4 (four) times daily. [facility] ibuprofen 800 mg tablet 10-29 00:00: 11-26 00:00 :00 No [id number] 800mg Take 1 tablet by mouth every 8 (eight) hours for 30 days. [facility] semaglutide (OZEMPIC) 1 mg/dose (2 mg/1.5 mL) PnIj 10-29 00:00: 00 11-21 04:59 :00 No [id number] 1mg inject 1 mg under the skin weekly for 4 doses. [facility] oxyCODONE 5 mg immediate release tablet 10-29 00:00: 11-06 04:59 :00 No [id number] 5mg Take 1 tablet by mouth every 4 (four) hours as needed for Pain (scale 7-10) for up to 7 days. Indication s: acute pain [facility] acetaminoph en (TYLENOL) tablet 650 mg 10-19 17:00: 00 Yes 650mg 650 mg, Oral, Q6H, First dose on Wed10/19/22 at 1200, Until Discontinu ed, Routine [facility] celecoxib (CELEBREX) capsule 100 mg 10-19 13:00: 00 Yes 100mg 100 mg, Oral, BID MEALS, First dose on Wed10/19/22 at 0800, Until Discontinu ed, Routine [facility] methocarbam oL (ROBAXIN) tablet 500 mg 10-19 13:00: 00 Yes 500mg 500 mg, Oral, QID, First dose on Wed10/19/22 at 0800, Until Discontinu ed, Routine [facility] semaglutide (OZEMPIC SC) 10-19 10:00: 56 Yes inject under the skin. [facility] polyethylen e glycol 3350 (MIRALAX) 17 gram powder 10-19 00:00: 00 11-26 00:00 :00 No [id number] Take 1 packet dissolved in 4-8 ounces beverage. [facility] gabapentin 300 mg capsule 10-19 00:00: 00 10-27 04:59 :00 No [id number] 300mg Take 1 capsule by mouth in the morning and 1 capsule at noon and 1 capsule in the evening. Do all this for 7 days. [facility] methocarbam oL 500 mg tablet 10-19 00:00: 00 10-27 04:59 :00 No [id number] 500mg Take 1 tablet by mouth 4 (four) times daily for 7 days. [facility] celecoxib 100 mg capsule 10-19 00:00: 00 10-27 04:59 :00 No [id number] 100mg Take 1 capsule by mouth in the morning and 1 capsule in the evening. Take with meals. Do all this for 7 days. [facility] acetaminoph en 325 mg tablet 10-19 00:00: 10-27 04:59 :00 No [id number] 650mg Take 2 tablets by mouth every 6 (six) hours for 7 days. [facility] oxyCODONE 5 mg immediate release tablet 10-19 00:00: 10-27 04:59 :00 No [id number] 5mg Take 1 tablet by mouth every 4 (four) hours as needed for Pain (scale 4-6) for up to 7 days. Indication s: acute pain [facility] acetaminoph en ADULT (OFIRMEV) injection 1,000 mg 10-17 17:00: 00 10-18 10:29 :00 No 1000mg 1,000 mg, IV Infusion, at 400 mL/hr Administer over 15 Minutes, Q6H, 4 doses, First dose (after last reorder) on 10/17/22 at 1200, Last dose on 10/18/22 at 0600, Routine
Indicatio n: Perioperat dahiana Patient [facility] carvediloL (COREG) tablet 3.125 mg 10-17 00:15: 00 Yes 3.125mg 3.125 mg, Oral, BID MEALS, First dose on Wed10/16/22 at 1915, Until Discontinu ed, NURA [facility] ketorolac (TORADOL) injection 15 mg 10-16 23:00: 00 10-19 12:15 :53 No 15mg 15 mg, Slow IV Push, Q6H, 12 doses, First dose (after last reorder) on Wed10/16/22 at 1800, Last dose on Wed10/19/22 at 1200, Routine [facility] oxyCODONE immediate release tablet 5 mg 10-16 22:30: 00 Yes 5mg 5 mg, Oral, Q4HPRN, Starting on Wed10/16/22 at 1730, Until Discontinu ed, Routine, Pain (scale 4-6)
Fa culty member approving Restricted medication : MORENA RIOS [facility] acetaminoph en ADULT (OFIRMEV) injection 1,000 mg 10-16 22:30: 00 10-17 16:59 :00 No 1000mg 1,000 mg, IV Infusion, at 400 mL/hr Administer over 15 Minutes, Q6H, 4 doses, First dose (after last reorder) on Wed10/16/22 at 1730, Last dose on Wed10/17/22 at 0600, Routine
Indicatio n: Perioperat dahiana Patient [facility] HYDROmorpho ne (DILAUDID) injection 0.5 mg 10-16 22:22: 18 10-17 22:52 :37 No .5mg 0.5 mg, Slow IV Push, Q4HPRN, Starting on Wed10/16/22 at 1722, Until 10/17/22 at 1752, Routine, Pain (scale 7-10)
U se approved by (Faculty): GENERAL SURGERY
General surgeon approving: Morena Rios [facility] HYDROmorpho ne (DILAUDID) injection 0.5 mg 10-15 22:53: 37 10-16 22:23 :49 No .5mg 0.5 mg, Slow IV Push, Q4HPRN, Starting on Radha 10/15/22 at 1753, Until Wed10/16/22 at 1723, Routine, Pain (scale 7-10)
U se approved by (Faculty): GENERAL SURGERY
General surgeon approving: Morena Rios [facility] acetaminoph en ADULT (OFIRMEV) injection 1,000 mg 10-15 17:00: 00 10-16 10:21 :00 No 1000mg 1,000 mg, IV Infusion, at 400 mL/hr Administer over 15 Minutes, Q6H, 4 doses, First dose (after last reorder) on Radha 10/15/22 at 1200, Last dose on Wed10/16/22 at 0600, Routine
Indicatio n: Perioperat dahiana Patient [facility] NaCl 0.9% (NS) IV infusion 1,000 mL 10-15 16:45: 00 10-17 15:41 :08 No 1000mL at 50 mL/hr, IV Infusion, CONTINUOUS , Starting on Radha 10/15/22 at 1145, Until 10/17/22 at 1041, Routine [facility] proparacain e (ALCAINE) 0.5 % ophthalmic solution 1 Drop 10-15 16:45: 00 10-15 16:48 :00 No 1[drp] 1 Drop, Right Eye, ONCE, 1 dose, On Radha 10/15/22 at 1145, Routine [facility] pantoprazol e (PROTONIX) injection 40 mg 10-15 16:00: 00 Yes 40mg 40 mg, Slow IV Push, Q24H, First dose on Radha 10/15/22 at 1100, Until Discontinu ed [facility] ketorolac (TORADOL) injection 15 mg 10-15 14:51: 08 10-16 14:50 :08 No 15mg 15 mg, Slow IV Push, Q6HPRN, Starting on Wed10/15/22 at 0951, Until Wed10/16/22 at 0950, Routine, Pain (scale 4-6), Pain (scale 7-10) [facility] HYDROmorpho ne (DILAUDID) 10 mg/50 mL 0.9% NaCl MOLDING LINE ASSISTANT 10-15 02:00: 00 10-15 22:53 :47 No Patient Bolus Dose: 0.1 mg
Lock out Interval: 6 Minutes
Basal Rate: 0 mg/hr
F our Hour Dose Limit: 4 mg
IV Infusion, 50 mL, CONTINUOUS , Starting on Wed10/14/22 at 2100, Until Wed10/15/22 at 1753 [facility] calcium gluconate 2 g in NaCl 100 mL (ISO-OSM) RTU IV infusion 2 g 10-14 12:00: 00 10-14 13:07 :00 No 2g 2 g, IV Infusion, at 200 mL/hr Administer over 30 Minutes, ONCE, 1 dose, On Wed10/14/22 at 0700, Routine [facility] acetaminoph en ADULT (OFIRMEV) injection 1,000 mg 10-14 05:00: 00 10-14 23:37 :34 No 1000mg 1,000 mg, IV Infusion, at 400 mL/hr Administer over 15 Minutes, Q6H, 4 doses, First dose (after last reorder) on Wed10/14/22 at 0000, Last dose on Wed10/14/22 at 1800, Routine
Indicatio n: Perioperat dahiana Patient [facility] NaCl 0.9% (NS) IV infusion 1,000 mL 10-13 22:30: 00 10-13 22:08 :00 No 1000mL at 999 mL/hr, IV Infusion, ONCE, 1 dose, On Wed10/13/22 at 1730, STAT [facility] NaCl 0.9% (NS) IV infusion 1,000 mL 10-13 21:45: 00 10-15 16:37 :34 No 1000mL at 100 mL/hr, IV Infusion, CONTINUOUS , Starting on Wed10/13/22 at 1645, Until Wed10/15/22 at 1137, Routine [facility] NaCl 0.9% (NS) IV infusion 1,000 mL 10-13 15:00: 00 Yes 1000mL at 150 mL/hr, IV Infusion, CONTINUOUS , Starting on Wed10/13/22 at 1000, Until Discontinu ed, Routine [facility] enoxaparin (LOVENOX) injection 40 mg 10-13 14:00: 00 Yes 40mg 40 mg, Subcutaneo us, DAILY, First dose on Wed10/13/22 at 0900, Until Discontinu ed, Routine [facility] moxifloxaci n (VIGAMOX) 0.5 % ophthalmic drops 1 Drop 10-13 13:45: 00 Yes 1[drp] 1 Drop, Right Eye, TID, First dose on Wed10/13/22 at 0845, Until Discontinu ed, Routine [facility] ketorolac (ACULAR) 0.5 % ophthalmic solution 1 Drop 10-13 13:45: 00 Yes 1[drp] 1 Drop, Right Eye, QID, First dose on Wed10/13/22 at 0845, Until Discontinu ed, Routine [facility] alvimopan (ENTEREG) capsule 12 mg 10-13 13:45: 00 10-17 00:59 :00 No 12mg 12 mg, Oral, BID, 7 doses, First dose (after last reorder) on Wed10/13/22 at 0845, Last dose on Wed10/16/22 at 0800, Routine
Restricte d use approved by: MORENA FERNANDEZ - SURGERY/LARS LUQUE [facility] NaCl 0.9% (NS) injection 10 mL 10-13 13:44: 15 Yes 10mL 10 mL, Slow IV Push, PRN, Starting on Wed10/13/22 at 0844, Until Discontinu ed, Routine, line maintenanc e [facility] lidocaine 1% (PF) (XYLOCAINE) injection 5 mL 10-13 13:44: 15 Yes 5mL 5 mL, Subcutaneo us, PRN, Starting on Wed10/13/22 at 0844, Until Discontinu ed, Routine, Local anesthesia [facility] oxyCODONE immediate release tablet 5 mg 10-13 13:41: 56 Yes 5mg 5 mg, Oral, Q6HPRN, Starting on Wed10/13/22 at 0841, Until Discontinu ed, Routine, Pain (scale 4-6)
Fa [facility] member approving Restricted medication : MORENA RIOS [facility] artificial tears(hypro mellose) (ISOPTO-TEA RS) 0.5 % ophthalmic drops 1 Drop 10-13 05:06: 10 Yes 1[drp] 1 Drop, Both Eyes, PRN, Starting on Wed10/13/22 at 0006, Until Discontinu ed, Routine, Dry eyes, Surgery Procedure [facility] acetaminoph en ADULT (OFIRMEV) injection 1,000 mg 10-13 05:00: 00 10-14 04:59 :00 No 1000mg 1,000 mg, IV Infusion, at 400 mL/hr Administer over 15 Minutes, Q6H, 4 doses, First dose on Wed10/13/22 at 0000, Last dose on Wed10/13/22 at 1800, Routine
Indicatio n: Perioperat dahiana Patient [facility] methocarbam oL (ROBAXIN) injection 1,000 mg 10-13 03:00: 00 Yes 1000mg 1,000 mg, Intravenou s, Q8H, First dose on Wed10/12/22 at 2200, Until Discontinu ed, Routine [facility] gabapentin (NEURONTIN) capsule 300 mg 10-13 01:00: 00 Yes 300mg 300 mg, Oral, TID, First dose on Wed10/12/22 at 2000, Until Discontinu ed, Routine [facility] alvimopan (ENTEREG) capsule 12 mg 10-13 01:00: 00 10-13 02:17 :00 No 12mg 12 mg, Oral, ONCE, 1 dose, On Wed10/12/22 at 2000, Routine
Restricte d use approved by: MORENA FERNANDEZ - SURGERY/GE REBEL [facility] pantoprazol e (PROTONIX) injection 40 mg 10-13 00:30: 00 10-16 00:29 :00 No 40mg 40 mg, Slow IV Push, Q24H, 3 doses, First dose on Wed10/12/22 at 1930, Last dose on Wed10/14/22 at 1930 [facility] HYDROmorpho ne (DILAUDID) 10 mg/50 mL 0.9% NaCl MOLDING LINE ASSISTANT 10-13 00:30: 00 10-15 00:29 :00 No Patient Bolus Dose: 0.1 mg
Lock out Interval: 6 Minutes
Basal Rate: 0 mg/hr
F our Hour Dose Limit: 4 mg
IV Infusion, 50 mL, CONTINUOUS , Starting on Wed10/12/22 at 1930, Until Wed10/14/22 at 1929 [facility] D5W 0.45% NaCl (1/2NS) 1 L + KCL 20 mEq 10-12 23:45: 00 10-13 13:46 :16 No IV Infusion, at 150 mL/hr, CONTINUOUS , Starting on Wed10/12/22 at 1845, Until Wed10/13/22 at 0846, Routine [facility] hydralAZINE (APRESOLINE ) injection 10 mg 10-12 23:31: 47 Yes 10mg 10 mg, Slow IV Push, Q4HPRN, Starting on Wed10/12/22 at 1831, Until Discontinu ed, Routine, DBP=>100; SBP=>180 [facility] ondansetron (ZOFRAN (PF)) injection 4 mg 10-12 23:28: 52 Yes 4mg 4 mg, Slow IV Push, Q6HPRN, Starting on Wed10/12/22 at 1828, Until Discontinu ed, Routine, Nausea and Vomiting (N/V) [facility] dextrose 10% (D10W) bolus infusion 250 mL 10-12 23:26: 07 Yes 250mL 250 mL, IV Infusion, PRN - SEE INSTRUCTIO NS, Administer over 60 Minutes, Other, If blood glucose is < or = 70 mg/dL and patient is unable to swallow or has mental status changes, Starting on Wed10/12/22 at 1826
If blood glucose is < or = 70 mg/dL and patient is unable to swallow or has mental status changes (Give glucagon order if patient needs fluid restrictio n): IF IV access available: Dextrose 10%. 1. 125 mL (? bag) of D10W IV infusion - equivalent to 12.5 g dextrose 2. Blood glucose - draw blood glucose 15 minutes after D10W Administra tion. 3. If blood glucose is < 80 mg/dL, repeat.
[facility] glucagon (GLUCAGEN DIAGNOSTIC KIT) injection 1 mg 10-12 23:26: 05 Yes 1mg 1 mg, Intramuscu lar, PRN, Starting on Wed10/12/22 at 1826, Until Discontinu ed, NURA, Blood Glucose < or = 70 mg/dL and patient is NPO, unable to swallow or has mental changes. [facility] naloxone (NARCAN) injection 0.1 mg 10-12 23:26: 05 Yes .1mg 0.1 mg, Slow IV Push, PRN - SEE INSTRUCTIO NS, Starting on Wed10/12/22 at 1826, Until Discontinu ed, Routine, Sedation/R espiratory Depression [facility] sugammadex (BRIDION) injection 10-12 22:30: 00 10-12 23:29 :45 No IV Push, ONCE INTRA PROCEDURE, Starting on Wed10/12/22 at 1730, Until Wed10/12/22 at 1829, Routine, Intra-op [facility] ondansetron (ZOFRAN (PF)) injection 10-12 21:34: 00 10-12 23:29 :45 No Slow IV Push, ONCE INTRA PROCEDURE, Starting on Wed10/12/22 at 1634, Until Wed10/12/22 at 1829, Routine, Intra-op Univers ity [facility] dexamethaso ne (DECADRON PHOSPHATE) injection 10-12 21:34: 00 10-12 23:29 :45 No IV Push, ONCE INTRA PROCEDURE, Starting on Wed10/12/22 at 1634, Until Wed10/12/22 at 1829, Routine, Intra-op Univers ity [facility] semaglutide (OZEMPIC SC) 10-12 20:51: 43 Yes inject under the skin. Univers ity [facility] acetaminoph en ADULT (OFIRMEV) injection 10-12 20:27: 00 10-12 23:29 :45 No IV Infusion, Administer over 15 Minutes, ONCE INTRA PROCEDURE, Starting on Wed10/12/22 at 1527, Until Discontinu ed, Routine, Intra-op Univers ity [facility] indocyanine green (CARDIO-GRE EN) injection 10-12 19:54: 00 10-12 23:29 :45 No Intravenou s, ONCE INTRA PROCEDURE, Starting on Wed10/12/22 at 1454, Until Discontinu ed, Routine, Intra-op Univers ity [facility] albumin (ALBUTEIN 5 %) 5 % injection 10-12 18:59: 00 10-12 23:29 :45 No IV Infusion, CONTINUOUS PRN, Starting on Wed10/12/22 at 1359, Until Discontinu ed, Intra-op Univers ity [facility] labetaloL (NORMODYNE) injection 10-12 17:32: 00 10-12 23:29 :45 No Slow IV Push, ONCE INTRA PROCEDURE, Starting on Wed10/12/22 at 1232, Until Discontinu ed, Routine, Intra-op Univers ity [facility] HYDROmorphO ne (DILAUDID) injection 10-12 16:53: 00 10-12 23:29 :45 No Slow IV Push, ONCE INTRA PROCEDURE, Starting on Wed10/12/22 at 1153, Until Discontinu ed, Routine, [facility]-op [facility] BUPivacaine liposome (PF) (EXPAREL (PF)) 1.3 % (13.3 mg/mL) 266 mg, bupivacaine -epinephrin e-pf (SENSORCAIN E W/EPINEPHRI NE) 0.25 %-1:200,000 30 mL, NaCl 0.9% (NS) 50 mL 10-12 15:51: 00 10-12 23:29 :05 No PRN, Starting on Wed10/12/22 at 1051, Intra-op Univers ity [facility] simethicone (GAS RELIEF (SIMETHICON E)) 40 mg/0.6 mL drops 10-12 15:50: 00 10-12 23:29 :05 No PRN, Starting on Wed10/12/22 at 1050, Until Wed10/12/22 at 1829, Routine, Intra-op Univers ity [facility] phenylephri ne (VAZCULEP) injection 10-12 15:05: 00 10-12 23:29 :45 No Slow IV Push, ONCE INTRA PROCEDURE, Starting on Wed10/12/22 at 1005, Until Discontinu ed, Routine, Intra-op Univers [facility] lactated ringers IV infusion 10-12 15:05: 00 10-12 23:29 :45 No IV Infusion, CONTINUOUS PRN, Starting on Wed10/12/22 at 1005, Until Discontinu ed, Routine, Intra-op Univers y [facility] metroNIDAZO LE in NaCl (iso-os) (FLAGYL I.V.) RTU IV infusion 10-12 15:05: 00 10-12 23:29 :45 No IV Infusion, ONCE INTRA PROCEDURE, Starting on Wed10/12/22 at 1005, Until Discontinu ed, Administer over 60 Minutes, Intra-op Univers ity [facility] rocuronium (ZEMURON) injection 10-12 14:56: 00 10-12 23:29 :45 No IV Push, ONCE INTRA PROCEDURE, Starting on Wed10/12/22 at 0956, Until Discontinu ed, Routine, Intra-op Univers ity [facility] succinylcho line (QUELICIN) injection 10-12 14:56: 00 10-12 23:29 :45 No IV Push, ONCE INTRA PROCEDURE, Starting on Wed10/12/22 at 0956, Until Discontinu ed, Routine, Intra-op [facility] ity [facility] FENTanyl PF (SUBLIMAZE (PF)) injection 10-12 14:56: 00 10-12 23:29 :45 No Epidural, ONCE INTRA PROCEDURE, Starting on Wed10/12/22 at 0956, Until Discontinu ed, Routine, Intra-op [facility] ity [facility] lidocaine 1% (XYLOCAINE) 100 mg/10 mL (1 %) injection 10-12 14:56: 00 10-12 23:29 :45 No Slow IV Push, ONCE INTRA PROCEDURE, Starting on Wed10/12/22 at 0956, Until Discontinu ed, Routine, Intra-op [facility] ity [facility] propofoL IV infusion 10-12 14:56: 00 10-12 23:29 :45 No IV Infusion, ONCE INTRA PROCEDURE, Starting on Wed10/12/22 at 0956, Until Discontinu ed, Routine, Intra-op [facility] ity [facility] cefTRIAXone (ROCEPHIN) injection 10-12 14:51: 00 10-12 23:29 :45 No Slow IV Push, ONCE INTRA PROCEDURE, Starting on Wed10/12/22 at 0951, Until Discontinu ed, NURA, Intra-op [facility] ity [facility] midazolam (VERSED) injection 10-12 14:49: 00 10-14 12:35 :22 No IV Push, ONCE INTRA PROCEDURE, Starting on Wed10/12/22 at 0949, Until Wed10/14/22 at 0735, Routine, Intra-op [facility] ity [facility] lactated ringers IV infusion 10-12 14:49: 00 10-12 23:29 :45 No IV Infusion, CONTINUOUS PRN, Starting on Wed10/12/22 at 0949, Until Discontinu ed, Routine, Intra-op [facility] ity [facility] lactated ringers IV infusion 1,000 mL 10-12 11:15: 00 10-12 11:47 :00 No 1000mL at 42 mL/hr, 1,000 mL, IV Infusion, ONCE, 1 dose, On Wed10/12/22 at 0615, Routine, DSU Pre-op [facility] metroNIDAZO LE in NaCl (iso-os) (FLAGYL I.V.) RTU IV infusion 500 mg 10-12 11:12: 32 10-12 12:56 :00 No 500mg 500 mg, IV Infusion, O.R. HOLDING ONCE, 1 dose, Starting on Wed10/12/22 at 0612, Until Wed10/30/22 at 2359, Administer over 60 Minutes, 100 mL, DSU Pre-op
Reason for Anti-Infec tive: Surgical Prophylaxi s
Surgi dalia Prophylaxi s: Other (see Comments)< br>Duratio n of therapy: within 24 hours of surgery [facility] celecoxib (CELEBREX) capsule 200 mg 10-12 11:12: 10-12 11:33 :00 No 200mg 200 mg, Oral, O.R. HOLDING ONCE, 1 dose, Starting on Wed10/12/22 at 0612, Until Wed10/12/22 at 0633, Routine, Pain, DSU Pre-op [facility] gabapentin (NEURONTIN) tablet 600 mg 10-12 11:12: 10-12 11:33 :00 No 600mg 600 mg, Oral, O.R. HOLDING ONCE, 1 dose, Starting on Wed10/12/22 at 0612, Until Wed10/12/22 at 0633, Routine, Surgery/Pr ocedure, DSU Pre-op [facility] acetaminoph en (TYLENOL) tablet 1,000 mg 10-12 11:12: 32 10-12 11:33 :00 No 1000mg 1,000 mg, Oral, O.R. HOLDING ONCE, 1 dose, Starting on Wed10/12/22 at 0612, Until Wed10/12/22 at 0633, Routine, Surgery / Procedure, DSU Pre-op [facility] semaglutide (OZEMPIC SC) 10-12 05:40: 25 Yes inject under the skin. [facility] ondansetron (ZOFRAN) 4 mg tablet 09-24 00:00: 00 10-29 00:00 :00 No [id number] 4mg Take 1 tablet by mouth every 8 (eight) hours as needed for Nausea and Vomiting (N/V) for up to 3 doses. [facility] neomycin 500 mg tablet 09-24 00:00: 00 09-26 04:59 :00 No 1000mg Take 2 tablets by mouth in the morning and 2 tablets at noon and 2 tablets in the evening. Do all this for 3 doses. [facility] metroNIDAZO LE 500 mg tablet 09-24 00:00: 00 09-26 04:59 :00 No 1000mg Take 2 tablets by mouth in the morning and 2 tablets at noon and 2 tablets in the evening. Do all this for 3 doses. [facility] lidocaine 1% (PF) (XYLOCAINE) injection 08-05 18:05: 00 Yes PRN, Starting on Wed08/05/22 at 1305, Until Discontinu ed, Routine, Intra-op [facility] lidocaine 1% (PF) (XYLOCAINE) injection 08-05 18:01: 50 08-05 18:01 :50 No PRN, Starting on Wed08/05/22 at 1301, Until Discontinu ed, Routine, Intra-op [facility] oxyCODONE 5 mg immediate release tablet 07-30 00:00: 00 Yes [id number] 5mg Take 1 tablet by mouth every 4 (four) hours as needed for Pain (scale 4-6). Indication s: acute pain [facility] amoxicillin -clavulanat e (AUGMENTIN) 875-125 mg per tablet 07-30 00:00: 00 08-07 04:59 :00 No [id number] 1{tbl} Take 1 tablet by mouth in the morning and 1 tablet in the evening. Do all this for 7 days. [facility] iopamidol (ISOVUE 370-500 mL) injection 90 mL 07-25 17:00: 00 07-25 16:12 :00 No [id number] 90mL 90 mL, Intravenou s, ONCE, 1 dose, On Wed07/25/22 at 1200, Routine [facility] semaglutide (OZEMPIC) 1 mg/dose (4 mg/3 mL) PnIj 07-23 00:00: 00 09-26 04:59 :00 No [id number] 1mg inject 1 mg under the skin weekly for 10 doses. [facility] lidocaine 5 % (700 mg/patch) patch 07-23 00:00: 00 08-06 04:59 :00 No [id number] 1{patch } Apply 1 Patch to area(s) every 72 (seventy-t wo) hours for 5 doses. [facility] oxyCODONE 5 mg immediate release tablet 07-21 00:00: 00 Yes [id number] 5mg Take 1 tablet by mouth every 4 (four) hours as needed for Pain (scale 4-6). Indication s: acute pain [facility] celecoxib (CELEBREX) capsule 100 mg 07-07 13:00: 00 Yes 100mg 100 mg, Oral, BID MEALS, First dose on Wed07/07/22 at 0800, Until Discontinu ed, Routine [facility] methocarbam oL (ROBAXIN) tablet 500 mg 07-07 13:00: 00 Yes 500mg 500 mg, Oral, QID, First dose on Wed07/07/22 at 0800, Until Discontinu ed, Routine [facility] polyethylen e glycol 3350 powder 17 g 07-07 01:00: 00 Yes 17g 17 g, Oral, BID, First dose (after last modificati on) on Wed07/06/22 at 2000, Until Discontinu ed, Routine [facility] polyethylen e glycol 3350 (MIRALAX) 17 gram powder 07-07 00:00: 00 Yes [id number] 1{packe t} Take 1 Packet by mouth in the morning. [facility] semaglutide (OZEMPIC) 0.25 mg or 0.5 mg (2 mg/3 mL) PnIj 07-07 00:00: 00 Yes [id number] 1mg inject 1 mg under the skin weekly. [facility] gabapentin 300 mg capsule 07-07 00:00: 00 10-29 00:00 :00 No [id number] 300mg Take 1 capsule by mouth in the morning and 1 capsule at noon and 1 capsule in the evening. [facility] methocarbam oL 750 mg tablet 07-07 00:00: 00 10-29 00:00 :00 No [id number] 750mg Take 1 tablet by mouth 4 (four) times daily. [facility] acetaminoph en (TYLENOL EXTRA STRENGTH) 500 mg tablet 07-07 00:00: 00 10-05 00:00 :00 No [id number] 1000mg Take 2 tablets by mouth every 8 (eight) hours. [facility] celecoxib 200 mg capsule 07-07 00:00: 00 10-05 00:00 :00 No [id number] 200mg Take 1 capsule by mouth in the morning. [facility] oxyCODONE 5 mg immediate release tablet 07-07 00:00: 00 07-15 04:59 :00 No [id number] 5mg Take 1 tablet by mouth every 4 (four) hours as needed for Pain (scale 4-6) for up to 7 days. Indication s: acute pain [facility] ketorolac (TORADOL) injection 15 mg 07-06 23:00: 00 07-09 22:59 :00 No 15mg 15 mg, Slow IV Push, Q6H, 12 doses, First dose (after last reorder) on 07/06/22 at 1800, Last dose on Wed07/09/22 at 1200, Routine [facility] oxyCODONE immediate release tablet 5 mg 07-06 21:15: 00 Yes 5mg 5 mg, Oral, Q4HPRN, Starting on Wed07/06/22 at 1615, Until Discontinu ed, Routine, Pain (scale 4-6)
Fa culty member approving Restricted medication : MORENA RIOS [facility] HYDROmorpho ne (DILAUDID) injection 0.2 mg 07-06 12:32: 54 07-08 12:31 :54 No .2mg 0.2 mg, Slow IV Push, Q4HPRN, Starting on Wed07/06/22 at 0732, Until Wed07/08/22 at 0731, Routine, Pain (scale 7-10)
U se approved by (Faculty): GENERAL SURGERY
General surgeon approving: Dr. Rios [facility] HYDROmorpho ne (DILAUDID) 10 mg/50 mL 0.9% NaCl MOLDING LINE ASSISTANT 07-06 08:00: 00 07-06 12:33 :04 No Patient Bolus Dose: 0.06 mg
Lock out Interval: 20 Minutes
Basal Rate: 0 mg/hr
F our Hour Dose Limit: 2.4 mg
IV Infusion, 50 mL, CONTINUOUS , Starting on Wed07/06/22 at 0300, Until Wed07/06/22 at 0733 [facility] HYDROmorpho ne (DILAUDID) 10 mg/50 mL 0.9% NaCl MOLDING LINE ASSISTANT 07-06 02:15: 00 07-06 06:14 :00 No Patient Bolus Dose: 0.06 mg
Lock out Interval: 20 Minutes
Basal Rate: 0 mg/hr
F our Hour Dose Limit: 2.4 mg
IV Infusion, 50 mL, CONTINUOUS , Starting on Wed07/05/22 at 2115, Until Wed07/06/22 at 0114 [facility] morpHINE (2 mg/mL) injection 2 mg 07-06 01:45: 00 07-06 02:04 :00 No 2mg 2 mg, Slow IV Push, ONCE, 1 dose, On Wed07/05/22 at 2045, Routine [facility] NaCl 0.9% (NS) IV infusion 1,000 mL 07-05 20:00: 00 07-06 21:09 :21 No 1000mL at 50 mL/hr, IV Infusion, CONTINUOUS , Starting on 07/05/22 at 1500, Until 07/06/22 at 1609, Routine [facility] HYDROmorpho ne (DILAUDID) 10 mg/50 mL 0.9% NaCl MOLDING LINE ASSISTANT 07-05 17:00: 00 07-05 20:59 :00 No Patient Bolus Dose: 0.06 mg
Lock out Interval: 20 Minutes
Basal Rate: 0 mg/hr
F our Hour Dose Limit: 2.4 mg
IV Infusion, 50 mL, CONTINUOUS , Starting on Wed07/05/22 at 1200, Until 07/05/22 at 1559 [facility] acetaminoph en (TYLENOL) tablet 650 mg 07-04 17:00: 00 Yes 650mg 650 mg, Oral, Q6H, First dose on 07/04/22 at 1200, Until Discontinu ed, Routine [facility] HYDROmorpho ne (DILAUDID) 10 mg/50 mL 0.9% NaCl MOLDING LINE ASSISTANT 07-04 15:30: 00 07-05 16:47 :36 No Patient Bolus Dose: 0.06 mg
Lock out Interval: 12 Minutes
Basal Rate: 0 mg/hr
F our Hour Dose Limit: 2.4 mg
IV Infusion, 50 mL, CONTINUOUS , Starting on 07/04/22 at 1030, Until 07/05/22 at 1147 [facility] enoxaparin (LOVENOX) injection 40 mg 07-04 14:00: 00 Yes 40mg 40 mg, Subcutaneo us, DAILY, First dose on 07/04/22 at 0900, Until Discontinu ed, Routine [facility] pantoprazol e (PROTONIX) EC tablet 40 mg 07-04 14:00: 00 Yes 40mg 40 mg, Oral, DAILY, First dose on 07/04/23 at 0900, Until Discontinu ed, Routine
Indicatio n for use: None of the above [facility] polyethylen e glycol 3350 powder 17 g 07-04 14:00: 00 07-06 21:09 :21 No 17g 17 g, Oral, DAILY, First dose on Wed07/04/22 at 0900, Until Discontinu ed, Routine [facility] alvimopan (ENTEREG) capsule 12 mg 07-04 13:00: 00 07-11 12:59 :00 No 12mg 12 mg, Oral, BID, 14 doses, First dose on Wed07/04/22 at 0800, Last dose on Wed07/10/22 at 2000, Routine
Restricte d use approved by: MORENA FERNANDEZ - SURGERY/ REBEL [facility] lidocaine (LIDODERM) 5 % (700 mg/patch) patch 2 Patch 07-03 23:30: 00 07-04 11:00 :00 No 2{patch } 2 Patch, Topical, Administer over 12 Hours, ONCE, 1 dose, On Wed07/03/22 at 1830, Routine [facility] ketorolac (TORADOL) injection 15 mg 07-03 23:00: 00 07-06 17:54 :00 No 15mg 15 mg, Slow IV Push, Q6H, 12 doses, First dose (after last modificati on) on Wed07/03/22 at 1800, Last dose on Wed07/06/22 at 1200, Routine [facility] HYDROmorpho ne (DILAUDID) 10 mg/50 mL 0.9% NaCl MOLDING LINE ASSISTANT 07-03 21:00: 00 07-04 15:25 :11 No Patient Bolus Dose: 0.06 mg
Lock out Interval: 6 Minutes
Basal Rate: 0 mg/hr
F our Hour Dose Limit: 2.4 mg
IV Infusion, 50 mL, CONTINUOUS , Starting on Wed07/03/22 at 1600, Until Wed07/04/22 at 1025 [facility] naloxone (NARCAN) injection 0.1 mg 07-03 19:58: 07 Yes .1mg 0.1 mg, Slow IV Push, SEE-INSTRU CTIONS, Starting on Wed07/03/22 at 1458, Until Discontinu ed, Routine [facility] gabapentin (NEURONTIN) capsule 300 mg 07-03 19:00: 00 Yes 300mg 300 mg, Oral, Q8H, First dose on Wed07/03/22 at 1400, Until Discontinu ed, Routine [facility] methocarbam oL (ROBAXIN) injection 1,000 mg 07-03 19:00: 00 Yes 1000mg 1,000 mg, Intravenou s, Q8H, First dose on Wed07/03/22 at 1400, Until Discontinu ed, Routine [facility] NaCl 0.9% (NS) IV infusion 1,000 mL 07-03 18:30: 00 07-04 15:24 :44 No 1000mL at 100 mL/hr, IV Infusion, CONTINUOUS , Starting on Wed07/03/22 at 1330, Until Wed07/04/22 at 1024, Routine [facility] HYDROmorphO ne (DILAUDID) injection 0.2 mg 07-03 17:47: 40 07-03 19:59 :26 No .2mg 0.2 mg, Slow IV Push, Q5MIN PRN, 10 doses, Starting on Wed07/03/22 at 1247, Until Wed07/03/22 at 1459, Routine, Pain (scale 7-10), PACU
Us e approved by (Faculty): PACU USE -ANESTHESI A SERVICE-HY DROMORPHON E INJECTIONS [facility] oxyCODONE immediate release tablet 5 mg 07-03 17:28: 41 07-06 21:09 :21 No 5mg 5 mg, Oral, Q6HPRN, Starting on Wed07/03/22 at 1228, Until Wed07/06/22 at 1609, Routine, Pain (scale 4-6)
Fa culty member approving Restricted medication : MORENA RIOS [facility] acetaminoph en ADULT (OFIRMEV) injection 1,000 mg 07-03 17:00: 00 07-04 16:59 :00 No 1000mg 1,000 mg, IV Infusion, at 400 mL/hr Administer over 15 Minutes, Q6H, 4 doses, First dose on Wed07/03/22 at 1200, Last dose on Wed07/04/22 at 0600, Routine
Indicatio n: Perioperat dahiana Patient [facility] ketorolac (TORADOL) injection 15 mg 07-03 17:00: 00 07-03 17:30 :35 No 15mg 15 mg, Slow IV Push, Q6H, 4 doses, First dose on Wed07/03/22 at 1200, Last dose on Wed07/04/22 at 0600, Routine [facility] HYDROmorpho ne (DILAUDID) injection 0.2 mg 07-03 15:42: 39 07-03 16:44 :58 No .2mg 0.2 mg, Slow IV Push, Q4HPRN, Starting on Wed07/03/22 at 1042, Until Wed07/03/22 at 1144, Routine, Pain (scale 7-10)
U se approved by (Faculty): GENERAL SURGERY
General surgeon approving: Dr. Rios [facility] ondansetron (ZOFRAN (PF)) injection 4 mg 07-03 15:41: 24 Yes 4mg 4 mg, Slow IV Push, Q6HPRN, Starting on Wed07/03/22 at 1041, Until Discontinu ed, Routine, Nausea and Vomiting (N/V) [facility] dextrose 10% (D10W) bolus infusion 250 mL 07-03 15:38: 23 Yes 250mL 250 mL, IV Infusion, PRN - SEE INSTRUCTIO NS, Administer over 60 Minutes, Other, If blood glucose is < or = 70 mg/dL and patient is unable to swallow or has mental status changes, Starting on Wed07/03/22 at 1038
If blood glucose is < or = 70 mg/dL and patient is unable to swallow or has mental status changes (Give glucagon order if patient needs fluid restrictio n): IF IV access available: Dextrose 10%. 1. 125 mL (? bag) of D10W IV infusion - equivalent to 12.5 g dextrose 2. Blood glucose - draw blood glucose 15 minutes after D10W Administra tion. 3. If blood glucose is < 80 mg/dL, repeat.
[facility] glucagon (GLUCAGEN DIAGNOSTIC KIT) injection 1 mg 07-03 15:38: 19 Yes 1mg 1 mg, Intramuscu lar, PRN, Starting on Wed07/03/22 at 1038, Until Discontinu ed, NURA, Blood Glucose < or = 70 mg/dL and patient is NPO, unable to swallow or has mental changes. [facility] naloxone (NARCAN) injection 0.1 mg 07-03 15:38: 18 Yes .1mg 0.1 mg, Slow IV Push, PRN - SEE INSTRUCTIO NS, Starting on Wed07/03/22 at 1038, Until Discontinu ed, Routine, Sedation/R espiratory Depression [facility] simethicone (GAS RELIEF (SIMETHICON E)) 40 mg/0.6 mL drops 07-03 13:24: 00 07-03 15:59 :32 No PRN, Starting on Wed07/03/22 at 0824, Until Wed07/03/22 at 1059, Routine, Intra-op [facility] sodium chloride 0.9 % irrigation solution 07-03 13:24: 00 07-03 15:59 :32 No PRN, Starting on Wed07/03/22 at 0824, Until Wed07/03/22 at 1059, Intra-op [facility] bupivacaine (preserv free) (SENSORCAIN E MPF) 0.25 % (2.5 mg/mL) 30 mL, BUPivacaine liposome (PF) (EXPAREL (PF)) 1.3 % (13.3 mg/mL) 266 mg, NaCl 0.9% (NS) 50 mL 07-03 13:24: 00 07-03 15:59 :32 No PRN, Starting on Wed07/03/22 at 0824, Intra-op [facility] alvimopan (ENTEREG) capsule 12 mg 07-03 10:15: 00 07-03 10:54 :00 No 12mg 12 mg, Oral, ONCE, 1 dose, On Wed07/03/22 at 0515, Routine, DSU Pre-op
Restricted use approved by: MORENA FERNANDEZ - SURGERY/GE NERAL [facility] lactated ringers IV infusion 1,000 mL 07-03 10:15: 00 07-03 11:20 :00 No 1000mL at 42 mL/hr, 1,000 mL, IV Infusion, ONCE, 1 dose, On Wed07/03/22 at 0515, Routine, DSU Pre-op [facility] celecoxib (CELEBREX) capsule 200 mg 07-03 10:11: 10 07-03 10:54 :00 No 200mg 200 mg, Oral, O.R. HOLDING ONCE, 1 dose, Starting on Wed07/03/22 at 0511, Until Discontinu ed, Routine, Pain, DSU Pre-op [facility] gabapentin (NEURONTIN) capsule 300 mg 07-03 10:11: 10 07-03 10:54 :00 No 300mg 300 mg, Oral, O.R. HOLDING ONCE, 1 dose, Starting on Wed07/03/22 at 0511, Until Discontinu ed, Routine, Surgery/Pr ocedure, DSU Pre-op [facility] acetaminoph en (TYLENOL) tablet 650 mg 07-03 10:11: 10 07-03 10:54 :00 No 650mg 650 mg, Oral, O.R. HOLDING ONCE, 1 dose, Starting on Wed07/03/22 at 0511, Until Discontinu ed, Routine, Surgery / Procedure, DSU Pre-op [facility] semaglutide (OZEMPIC) 0.25 mg or 0.5 mg (2 mg/3 mL) PnIj 4-14 00:00: 00 07-07 00:00 :00 No [id number] .5mg inject 0.5 mg under the skin weekly for 60 days. [facility] iopamidol (ISOVUE 370-500 mL) injection 100 mL 05-31 12:15: 00 05-31 12:15 :00 No [id number] 100mL 100 mL, Intravenou s, ONCE, 1 dose, On 05/31/22 at 0715, Routine [facility] ondansetron (ZOFRAN (PF)) injection 4 mg 05-31 10:30: 00 05-31 10:44 :00 No 4mg 4 mg, Slow IV Push, ONCE, 1 dose, On 05/31/22 at 0530, NURA [facility] morpHINE (4 mg/mL) injection 4 mg 05-31 10:30: 00 05-31 10:44 :00 No 4mg 4 mg, Slow IV Push, ONCE, 1 dose, On 05/31/22 at 0530, STAT [facility] neomycin 500 mg tablet 05-21 00:00: 00 Yes [id number] 1000mg Take 2 tablets by mouth SEE-INSTRU CTIONS. Take 2 tablets by mouth at 4pm, 5pm and 10pm on the day prior to your surgery [facility] metroNIDAZO LE 500 mg tablet 05-21 00:00: 00 Yes [id number] 1000mg Take 2 tablets by mouth SEE-INSTRU CTIONS. Take 2 tablets by mouth at 4pm, 5pm and 10pm on the day prior to your surgery [facility] ondansetron (ZOFRAN) 4 mg tablet 05-21 00:00: 00 10-19 00:00 :00 No [id number] 4mg Take 1 tablet by mouth every 8 (eight) hours as needed for Nausea and Vomiting (N/V) for up to 3 doses. [facility] polyethylen e glycol 3350 (MIRALAX) 17 gram powder 05-21 00:00: 00 07-07 00:00 :00 No [id number] 1{packe t} Take 1 Packet by mouth in the morning. [facility] methocarbam oL 750 mg tablet 05-21 00:00: 00 07-07 00:00 :00 No [id number] 750mg Take 1 tablet by mouth 4 (four) times daily. [facility] semaglutide (OZEMPIC) 0.25 mg or 0.5 mg (2 mg/3 mL) PnIj 05-21 00:00: 00 06-05 04:59 :00 No [id number] .25mg inject 0.25 mg under the skin weekly for 14 days. [facility] ketorolac (TORADOL) injection 30 mg 05-10 23:15: 00 05-10 22:13 :00 No 30mg 30 mg, Slow IV Push, ONCE, 1 dose, On Wed05/10/22 at 1815, Routine [facility] FENTanyl PF (SUBLIMAZE (PF)) injection 50 mcg 05-10 23:00: 00 05-10 22:14 :00 No 50ug 50 mcg, Slow IV Push, ONCE, 1 dose, On Wed05/10/22 at 1800, Routine [facility] NaCl 0.9% (NS) bolus infusion 500 mL 05-10 22:15: 00 05-10 23:09 :00 No 500mL at 999 mL/hr, 500 mL, IV Infusion, ONCE, 1 dose, On Wed05/10/22 at 1715, STAT [facility] iopamidol (ISOVUE 370-500 mL) injection 100 mL 05-10 21:34: 00 05-10 21:32 :00 No [id number] 100mL 100 mL, Intravenou s, ONCE, 1 dose, On Wed05/10/22 at 1645, Routine [facility] lisinopriL 10 mg tablet 05-10 17:09: 19 05-10 00:00 :00 No 10mg Take 10 mg by mouth in the morning. [facility] oxyCODONE 5 mg immediate release tablet -25 00:00: 00 05-10 00:00 :00 No [id number] 5mg Take 1 tablet by mouth every 4 (four) hours as needed for Pain (scale 4-6). Indication s: acute pain [facility] lisinopriL 10 mg tablet 03-13 13:18: 30 Yes 10mg Take 10 mg by mouth in the morning. [facility] lisinopriL- hydrochloro thiazide 20-12.5 mg per tablet 03-13 00:00: 00 Yes 1{tbl} Take 1 tablet by mouth every morning. [facility] celecoxib 200 mg capsule 03-10 00:00: 00 07-07 00:00 :00 No [id number] 200mg Take 1 capsule by mouth in the morning. [facility] acetaminoph en (TYLENOL EXTRA STRENGTH) 500 mg tablet 03-10 00:00: 00 07-07 00:00 :00 No [id number] 1000mg Take 2 tablets by mouth every 8 (eight) hours. [facility] gabapentin 300 mg capsule 03-10 00:00: 00 07-07 00:00 :00 No [id number] 300mg Take 1 capsule by mouth in the morning and 1 capsule at noon and 1 capsule in the evening. [facility] methocarbam oL 500 mg tablet 03-10 00:00: 00 07-07 00:00 :00 No [id number] 500mg Take 1 tablet by mouth 4 (four) times daily. [facility] lisinopriL 10 mg tablet 03-02 13:57: 02 Yes 10mg Take 10 mg by mouth in the morning. [facility] celecoxib 200 mg capsule 03-02 00:00: 00 Yes [id number] 200mg Take 1 capsule by mouth in the morning. [facility] methocarbam oL 500 mg tablet 03-02 00:00: 00 03-17 05:59 :00 No [id number] 500mg Take 1 tablet by mouth 4 (four) times daily for 14 days. [facility] gabapentin 300 mg capsule 03-02 00:00: 00 03-17 05:59 :00 No [id number] 300mg Take 1 capsule by mouth in the morning and 1 capsule at noon and 1 capsule in the evening. Do all this for 14 days. [facility] oxyCODONE 5 mg immediate release tablet 03-02 00:00: 00 03-10 05:59 :00 No [id number] 5mg Take 1 tablet by mouth every 4 (four) hours as needed for Pain (scale 4-6) for up to 7 days. Indication s: acute pain [facility] labetaloL (NORMODYNE) tablet 100 mg 02-28 21:32: 58 Yes 100mg 100 mg, Oral, [id number], Starting on 02/28/22 at 1532, Until Discontinu ed, Routine, SBP >180 or DBP >120 and HR >100 [facility] hydrALAZINE (APRESOLINE ) tablet 10 mg 02-28 21:32: 58 Yes 10mg 10 mg, Oral, Q8HPRN, Starting on 02/28/22 at 1532, Until Discontinu ed, Routine, SBP >180 or DBP >120 and HR <100 [facility] gabapentin (NEURONTIN) capsule 300 mg 02-28 17:15: 00 Yes 300mg 300 mg, Oral, TID, First dose on Wed02/28/22 at 1115, Until Discontinu ed, Routine [facility] celecoxib (CELEBREX) capsule 100 mg 02-27 23:00: 00 Yes 100mg 100 mg, Oral, BID MEALS, First dose on Wed02/27/22 at 1700, Until Discontinu ed, Routine [facility] acetaminoph en (TYLENOL) tablet 1,000 mg 02-27 20:00: 00 Yes 1000mg 1,000 mg, Oral, Q8H, First dose on Wed02/27/22 at 1400, Until Discontinu ed, Routine [facility] methocarbam oL (ROBAXIN) tablet 500 mg 02-27 18:00: 00 Yes 500mg 500 mg, Oral, QID, First dose on Wed02/27/22 at 1200, Until Discontinu ed, Routine [facility] D5W 0.45% NaCl (1/2NS) 1 L + KCL 20 mEq 02-26 17:45: 00 Yes IV Infusion, at 50 mL/hr, CONTINUOUS , Starting on Wed02/26/22 at 1145, Until Discontinu ed, Routine [facility] HYDROmorpho ne (DILAUDID) injection 0.2 mg 02-26 17:33: 03 02-28 17:32 :03 No .2mg 0.2 mg, Slow IV Push, Q4HPRN, Starting on Radha 02/26/22 at 1133, Until 02/28/22 at 1132, Routine, Pain (scale 7-10)
U se approved by (Faculty): GENERAL SURGERY
General surgeon approving: Gabriel [facility] piperacilli n-tazobacta m (ZOSYN) 4.5 g in NaCl 0.9% (NS) 50 mL MINI-BAG 02-26 09:30: 00 03-02 09:29 :00 No 4.5g 4.5 g, IV Piggyback, Q8H ABX, 12 doses, First dose on Wed02/26/22 at 0330, Last dose on Wed03/01/22 at 1930, Administer over 4 Hours, 50 mL
Reas on for Anti-Infec tive: Empiric Therapy for Suspected Infection< br>Empiric Therapy Site: Abdominal< br>Duratio n of therapy: 72 hours [facility] acetaminoph en ADULT (OFIRMEV) injection 1,000 mg 02-26 06:00: 00 02-27 05:59 :00 No 1000mg 1,000 mg, IV Infusion, at 400 mL/hr Administer over 15 Minutes, Q6H, 4 doses, First dose (after last reorder) on Wed02/26/22 at 0000, Last dose on Wed02/26/22 at 1800, Routine
Indicatio n: Perioperat dahiana Patient [facility] gabapentin (NEURONTIN) capsule 300 mg 02-26 02:00: 00 Yes 300mg 300 mg, Oral, TID, First dose on Wed02/25/22 at 2000, Until Discontinu ed, Routine [facility] piperacilli n-tazobacta m (ZOSYN) 4.5 g in NaCl 0.9% (NS) 50 mL MINI-BAG 02-26 01:30: 00 02-26 03:40 :00 No 4.5g 4.5 g, IV Piggyback, ONCE, 1 dose, On Wed02/25/22 at 1930, Administer over 30 Minutes, 50 mL
Reas on for Anti-Infec tive: Empiric Therapy for Suspected Infection< br>Empiric Therapy Site: Abdominal< br>Duratio n of therapy: 72 hours [facility] ketorolac (TORADOL) injection 15 mg 02-26 00:45: 00 03-02 23:59 :00 No 15mg 15 mg, Slow IV Push, Q6H, 20 doses, First dose on Wed02/25/22 at 1845, Last dose on Wed03/02/22 at 1200, Routine [facility] D5W 0.45% NaCl (1/2NS) 1 L + KCL 20 mEq 02-26 00:45: 00 02-26 17:34 :04 No IV Infusion, at 100 mL/hr, CONTINUOUS , Starting on Wed02/25/22 at 1845, Until Radha 02/26/22 at 1134, Routine [facility] oxyCODONE immediate release tablet 5 mg 02-26 00:31: 01 Yes 5mg 5 mg, Oral, Q4HPRN, Starting on Wed02/25/22 at 1831, Until Discontinu ed, Routine, Pain (scale 4-6)
Fa culty member approving Restricted medication : MORENA RIOS [facility] celecoxib (CELEBREX) capsule 100 mg 02-25 23:00: 00 02-26 00:30 :36 No 100mg 100 mg, Oral, BID MEALS, First dose on Wed02/25/22 at 1700, Until Discontinu ed, [facility] bup[facility] liposome (PF) (EXPAREL (PF)) 1.3 % (13.3 mg/mL) injection 02-25 13:15: 00 Yes PRN, Starting on Wed02/25/22 at 0715, Until Discontinu ed, Routine, [facility] bup[facility] -epinephrin e-pf (SENSORCAIN E W/EPINEPHRI NE) 0.25 %-1:200,000 injection 02-25 13:15: 00 Yes PRN, Starting on Wed02/25/22 at 0715, Until Discontinu ed, Routine, Intra-op [facility] gabapentin (NEURONTIN) capsule 300 mg 02-25 11:30: 00 02-25 12:12 :00 No 300mg 300 mg, Oral, ONCE, 1 dose, On Wed02/25/22 at 0530, Routine [facility] celecoxib (CELEBREX) capsule 200 mg 02-25 11:30: 00 02-25 12:13 :00 No 200mg 200 mg, Oral, ONCE, 1 dose, On Wed02/25/22 at 0530, Routine [facility] acetaminoph en (TYLENOL) tablet 1,000 mg 02-25 06:00: 00 Yes 1000mg 1,000 mg, Oral, Q8H, First dose on Wed02/25/22 at 0000, Until Discontinu ed, Routine [facility] polyethylen e glycol 3350 17 gram powder 02-25 00:00: 00 04-02 05:59 :00 No [id number] 17g Take 1 Packet by mouth in the morning for 30 days. [facility] celecoxib 200 mg capsule 02-25 00:00: 00 03-02 00:00 :00 No [id number] 200mg Take 1 capsule by mouth in the morning for 7 days. [facility] peg-electro lyte soln (GOLYTELY) 236-22.74-6 .74 -5.86 gram solution 2,000 mL 02-24 21:00: 00 02-25 00:41 :00 No 2000mL 2,000 mL, Oral, ONCE, 1 dose, On Wed02/24/22 at 1500, Routine [facility] D5W 0.45% NaCl (1/2NS) 1 L + KCL 20 mEq 02-24 20:15: 00 Yes IV Infusion, at 125 mL/hr, CONTINUOUS , Starting on Wed02/24/22 at 1415, Until Discontinu ed, Routine [facility] polyethylen e glycol 3350 powder 17 g 02-24 17:30: 00 02-24 19:52 :00 No 17g 17 g, Oral, ONCE, 1 dose, On Wed02/24/22 at 1130, Routine [facility] mineral oil (MINERAL OIL EXTRA HEAVY) oral liquid 30 mL 02-24 17:30: 00 02-24 18:18 :00 No 30mL 30 mL, Oral, ONCE, 1 dose, On Wed02/24/22 at 1130, Routine [facility] polyethylen e glycol 3350 powder 17 g 02-24 15:00: 00 Yes 17g 17 g, Oral, DAILY, First dose on Wed02/24/22 at 0900, Until Discontinu ed, Routine [facility] celecoxib (CELEBREX) capsule 200 mg 02-24 15:00: 00 Yes 200mg 200 mg, Oral, DAILY, First dose on Wed02/24/22 at 0900, Until Discontinu ed, Routine [facility] enoxaparin (LOVENOX) injection 40 mg 02-24 15:00: 00 Yes 40mg 40 mg, Subcutaneo us, DAILY, First dose on Wed02/24/22 at 0900, Until Discontinu ed, [facility] pantoprazol e (PROTONIX) EC tablet 40 mg 02-24 15:00: 00 Yes 40mg 40 mg, Oral, DAILY, First dose on Wed02/24/22 at 0900, Until Discontinu ed, Routine
Indicatio n for use: None of the above [facility] lisinopriL (PRINIVIL,Z ESTRIL) tablet 10 mg 02-24 15:00: 00 Yes 10mg 10 mg, Oral, DAILY, First dose on Wed02/24/22 at 0900, Until Discontinu ed, Routine [facility] gabapentin (NEURONTIN) capsule 300 mg 02-24 14:00: 00 Yes 300mg 300 mg, Oral, TID, First dose on Wed02/24/22 at 0800, Until Discontinu ed, Routine [facility] alvimopan (ENTEREG) capsule 12 mg 02-24 14:00: 00 02-27 17:51 :20 No 12mg 12 mg, Oral, BID, 14 doses, First dose on Wed02/24/22 at 0800, Last dose on Wed03/02/22 at 1999, Routine
Restricte d use approved by: MORENA FERNANDEZ - SURGERY/LARS LUQUE [facility] meloxicam 7.5 mg tablet 02-24 13:11: 37 02-24 00:00 :00 No 7.5mg Take 7.5 mg by mouth in the morning and 7.5 mg in the evening. [facility] lisinopriL 10 mg tablet 02-24 10:52: 09 Yes 10mg Take 10 mg by mouth in the morning. [facility] acetaminoph en ADULT (OFIRMEV) injection 1,000 mg 02-24 06:00: 00 02-25 05:59 :00 No 1000mg 1,000 mg, IV Infusion, at 400 mL/hr Administer over 15 Minutes, Q6H, 4 doses, First dose on Wed02/24/22 at 0000, Last dose on Wed02/24/22 at 1800, Routine
Indicatio n: Perioperat dahiana Patient [facility] benzonatate (TESSALON PERLES) capsule 100 mg 02-24 04:00: 00 Yes 100mg 100 mg, Oral, Q8H, First dose on Wed02/23/22 at 2200, Until Discontinu ed, Routine [facility] methocarbam oL (ROBAXIN) injection 1,000 mg 02-24 04:00: 00 02-27 17:51 :20 No 1000mg 1,000 mg, Intravenou s, Q8H, First dose on Wed02/23/22 at 2200, Until Discontinu ed, Routine [facility] FENTanyl PF (SUBLIMAZE (PF)) injection 50 mcg 02-24 03:14: 06 02-24 04:19 :47 No 50ug 50 mcg, Slow IV Push, Q5MIN PRN, 2 doses, Starting on Wed02/23/22 at 2114, Until Wed02/23/22 at 2219, Routine, Pain (scale 7-10), PACU [facility] HYDROmorpho ne (DILAUDID) injection 0.2 mg 02-24 03:12: 48 02-26 03:11 :48 No .2mg 0.2 mg, Slow IV Push, Q6HPRN, Starting on Wed02/23/22 at 211, Until Wed02/25/22 at 2110, Routine, Pain (scale 7-10)
U se approved by (Faculty): [facility] PROVIDER [facility] Sliding Scale Insulin-Reg ular + Fsbg Testing 02-24 03:00: 00 Yes Subcutaneo us, AC+HS, First dose on Wed02/23/22 at 2100, Until Discontinu ed, Routine [facility] D5W 0.45% NaCl (1/2NS) 1 L + KCL 20 mEq 02-24 02:30: 00 02-24 20:12 :36 No IV Infusion, at 50 mL/hr, CONTINUOUS , Starting on Wed02/23/22 at 2030, Until Wed02/24/22 at 1412, Routine [facility] dextrose 10% (D10W) bolus infusion 250 mL 02-24 02:22: 29 Yes 250mL 250 mL, IV Infusion, PRN - SEE INSTRUCTIO NS, Administer over 60 Minutes, Other, If blood glucose is < or = 70 mg/dL and patient is unable to swallow or has mental status changes, Starting on Wed02/23/22 at 2021
If blood glucose is < or = 70 mg/dL and patient is unable to swallow or has mental status changes (Give glucagon order if patient needs fluid restrictio n): IF IV access available: Dextrose 10%. 1. 125 mL (? bag) of D10W IV infusion - equivalent to 12.5 g dextrose 2. Blood glucose - draw blood glucose 15 minutes after D10W Administra tion. 3. If blood glucose is < 80 mg/dL, repeat.
[facility] glucagon (GLUCAGEN DIAGNOSTIC KIT) injection 1 mg 02-24 02:22: 23 Yes 1mg 1 mg, Intramuscu lar, PRN, Starting on Wed02/23/22 at 2021, Until Discontinu ed, NURA, Blood Glucose < or = 70 mg/dL and patient is unable to swallow or has mental changes. [facility] ondansetron (ZOFRAN (PF)) injection 4 mg 02-24 02:20: 55 Yes 4mg 4 mg, Slow IV Push, Q6HPRN, Starting on Wed02/23/22 at 2020, Until Discontinu ed, Routine, Nausea and Vomiting (N/V) [facility] dextrose 10% (D10W) bolus infusion 250 mL 02-24 02:18: 26 Yes 250mL 250 mL, IV Infusion, PRN - SEE INSTRUCTIO NS, Administer over 60 Minutes, Other, If blood glucose is < or = 70 mg/dL and patient is unable to swallow or has mental status changes, Starting on Wed02/23/22 at 2018
If blood glucose is < or = 70 mg/dL and patient is unable to swallow or has mental status changes (Give glucagon order if patient needs fluid restrictio n): IF IV access available: Dextrose 10%. 1. 125 mL (? bag) of D10W IV infusion - equivalent to 12.5 g dextrose 2. Blood glucose - draw blood glucose 15 minutes after D10W Administra tion. 3. If blood glucose is < 80 mg/dL, repeat.
[facility] glucagon (GLUCAGEN DIAGNOSTIC KIT) injection 1 mg 02-24 02:18: 22 Yes 1mg 1 mg, Intramuscu lar, PRN, Starting on Wed02/23/22 at 2017, Until Discontinu ed, NURA, Blood Glucose < or = 70 mg/dL and patient is unable to swallow or has mental changes. [facility] naloxone (NARCAN) injection 0.1 mg 02-24 02:18: 22 Yes .1mg 0.1 mg, Slow IV Push, PRN - SEE INSTRUCTIO NS, Starting on Wed02/23/22 at 2017, Until Discontinu ed, Routine, Sedation/R espiratory Depression [facility] acetaminoph en (TYLENOL EXTRA STRENGTH) 500 mg tablet 02-24 00:00: 00 04-02 05:59 :00 No [id number] 1000mg Take 2 tablets by mouth every 8 (eight) hours for 30 days. [facility] gabapentin 300 mg capsule 02-24 00:00: 00 03-02 00:00 :00 No [id number] 300mg Take 1 capsule by mouth in the morning and 1 capsule at noon and 1 capsule in the evening. Do all this for 7 days. [facility] methocarbam oL 500 mg tablet 02-24 00:00: 00 03-02 00:00 :00 No [id number] 500mg Take 1 tablet by mouth 4 (four) times daily for 7 days. [facility] mineral oil oral liquid 02-24 00:00: 00 03-02 00:00 :00 No [id number] 30mL Take 30 mL by mouth in the morning for 15 days. [facility] bupivacaine (preserv free) (SENSORCAIN E MPF) 0.25 % (2.5 mg/mL) 30 mL, bupivacaine liposome (PF) (EXPAREL (PF)) 1.3 % (13.3 mg/mL) 266 mg, NaCl 0.9% (NS) 50 mL 02-23 22:52: 00 02-24 02:31 :29 No PRN, Starting on Wed02/23/22 at 1652, Intra-op [facility] sodium chloride 0.9 % irrigation solution 02-23 22:52: 00 02-24 02:31 :29 No PRN, Starting on Wed02/23/22 at 1652, Until Wed02/23/22 at 2031, Intra-op [facility] alvimopan (ENTEREG) capsule 12 mg 02-23 18:30: 00 02-23 18:43 :00 No 12mg 12 mg, Oral, ONCE, 1 dose, On Wed02/23/22 at 1230, Routine, DSU Pre-op
Restricted use approved by: MORENA FERNANDEZ - SURGERY/GE NERAL [facility] celecoxib (CELEBREX) capsule 200 mg 02-23 18:16: 41 02-23 18:43 :00 No 200mg 200 mg, Oral, O.R. HOLDING ONCE, 1 dose, Starting on Wed02/23/22 at 1216, Until Discontinu ed, Routine, Pain, DSU Pre-op [facility] gabapentin (NEURONTIN) capsule 300 mg 02-23 18:16: 41 02-23 18:43 :00 No 300mg 300 mg, Oral, O.R. HOLDING ONCE, 1 dose, Starting on Wed02/23/22 at 1216, Until Discontinu ed, Routine, Surgery/Pr ocedure, DSU Pre-op [facility] acetaminoph en (TYLENOL) tablet 650 mg 02-23 18:16: 41 02-23 18:43 :00 No 650mg 650 mg, Oral, O.R. HOLDING ONCE, 1 dose, Starting on Wed02/23/22 at 1216, Until Discontinu ed, Routine, Surgery / Procedure, DSU Pre-op [facility] meloxicam 7.5 mg tablet 2021-02 13:22: 19 Yes 7.5mg Take 7.5 mg by mouth in the morning and 7.5 mg in the evening. [facility] lisinopriL 10 mg tablet 2021-02 13:22: 19 Yes 10mg Take 10 mg by mouth in the morning. [facility] neomycin 500 mg tablet 2021-02 00:00: 00 02-24 00:00 :00 No [id number] 1000mg Take 2 tablets by mouth SEE-INSTRU CTIONS. Take 2 tablets by mouth at 4pm, 5pm and 10pm on the day prior to your surgery [facility] metroNIDAZO LE 500 mg tablet 2021-02 00:00: 00 02-24 00:00 :00 No [id number] 1000mg Take 2 tablets by mouth SEE-INSTRU CTIONS. Take 2 tablets by mouth at 4pm, 5pm and 10pm on the day prior to your surgery [facility] lactated ringers IV infusion 1,000 mL 2021-02 18:15: 00 12-12 21:14 :53 No 1000mL at 100 mL/hr, 1,000 mL, IV Infusion, CONTINUOUS , Starting on Wed12/12/21 at 1315, Until Wed12/12/21 at 1614, Routine, PACU [facility] ondansetron (ZOFRAN (PF)) injection 4 mg 2021-02 18:06: 04 Yes 4mg 4 mg, Slow IV Push, PRN, 1 dose, Starting on Wed12/12/21 at 1306, Until Discontinu ed, Routine, Nausea and Vomiting (N/V), PACU [facility] lidocaine 1% (XYLOCAINE) 100 mg/10 mL (1 %) injection 2021-02 17:20: 00 12-12 17:45 :09 No Slow IV Push, ONCE INTRA PROCEDURE, Starting on Wed12/12/21 at 1220, Until Wed12/12/21 at 1245, Routine, Intra-op [facility] propofoL IV infusion 2021-02 17:20: 00 12-12 17:45 :09 No IV Infusion, ONCE INTRA PROCEDURE, Starting on Wed12/12/21 at 1220, Until Wed12/12/21 at 1245, Routine, Intra-op [facility] lactated ringers IV infusion 2021-02 16:58: 00 12-12 17:45 :09 No IV Infusion, CONTINUOUS PRN, Starting on Wed12/12/21 at 1158, Until Wed12/12/21 at 1245, Routine, Intra-op [facility] midazolam (VERSED) injection 2021-02 16:58: 00 12-12 17:45 :09 No IV Push, ONCE INTRA PROCEDURE, Starting on Wed12/12/21 at 1158, Until Wed12/12/21 at 1245, Routine, Intra-op [facility] water for irrigation irrigation solution 2021-02 16:03: 00 12-12 18:05 :12 No PRN, Starting on Wed12/12/21 at 1103, Until Wed12/12/21 at 1305, Routine, Intra-op [facility] simethicone (GAS RELIEF (SIMETHICON E)) 40 mg/0.6 mL drops 2021-02 16:03: 00 12-12 18:05 :12 No PRN, Starting on Wed12/12/21 at 1103, Until Wed12/12/21 at 1305, Routine, Intra-op [facility] lactated ringers IV infusion 1,000 mL 2021-02 14:30: 00 12-12 14:36 :00 No 1000mL at 42 mL/hr, 1,000 mL, IV Infusion, ONCE, 1 dose, On Wed12/12/21 at 0930, Routine, DSU Pre-op [facility] meloxicam 7.5 mg tablet 2021-02 14:14: 52 Yes 7.5mg Take 7.5 mg by mouth in the morning and 7.5 mg in the evening. [facility] lisinopriL 10 mg tablet 2021-02 14:14: 52 Yes 10mg Take 10 mg by mouth in the morning. [facility] sodium,pota ssium,mag sulfates 17.5-3.13-1 .6 gram 2021-02 0-11 00:00: 00 12-03 04:59 :00 No 117mL Take 117 mL by mouth once now for 1 dose. [facility] polyethylen e glycol (MIRALAX) 17 gram/dose powder 06-22 00:00: 00 02-24 00:00 :00 No 17g Take 17 g by mouth daily. [facility] mineral oil oral liquid 06-22 00:00: 00 02-24 00:00 :00 No 30mL Take 30 mL by mouth daily. [facility] Immunizations Ordered Immunization Name Filled Immunization Name Date Status Comments Source SARS-COV-2 COVID-19 VACCINE - (MODERNA) 2021-11-04 00:00:00 Completed [facility] SARS-COV-2 COVID-19 VACCINE - (MODERNA) 2021-11-04 00:00:00 Completed [facility] SARS-COV-2 COVID-19 VACCINE - (MODERNA) 2021-11-04 00:00:00 Completed [facility] SARS-COV-2 COVID-19 VACCINE - (MODERNA) 2021-11-04 00:00:00 Completed [facility] SARS-COV-2 COVID-19 VACCINE - (MODERNA) 2021-11-04 00:00:00 Completed [facility] SARS-COV-2 COVID-19 VACCINE - (MODERNA) 2021-11-04 00:00:00 Completed [facility] SARS-COV-2 COVID-19 VACCINE - (MODERNA) 2021-11-04 00:00:00 Completed [facility] SARS-COV-2 COVID-19 VACCINE - (MODERNA) 2021-11-04 00:00:00 Completed [facility] SARS-COV-2 COVID-19 VACCINE - (MODERNA) 2021-11-04 00:00:00 Completed [facility] SARS-COV-2 COVID-19 VACCINE - (MODERNA) 2021-11-04 00:00:00 Completed [facility] SARS-COV-2 COVID-19 VACCINE - (MODERNA) 2021-11-04 00:00:00 Completed [facility] SARS-COV-2 COVID-19 VACCINE - (MODERNA) 2021-11-04 00:00:00 Completed [facility] SARS-COV-2 COVID-19 VACCINE - (MODERNA) 2021-11-04 00:00:00 Completed [facility] SARS-COV-2 COVID-19 VACCINE - (MODERNA) 2021-11-04 00:00:00 Completed [facility] SARS-COV-2 COVID-19 VACCINE - (MODERNA) 2021-11-04 00:00:00 Completed [facility] SARS-COV-2 COVID-19 VACCINE - (MODERNA) 2021-11-04 00:00:00 Completed [facility] SARS-COV-2 COVID-19 VACCINE - (MODERNA) 2021-11-04 00:00:00 Completed [facility] SARS-COV-2 COVID-19 VACCINE - (MODERNA) 2021-11-04 00:00:00 Completed [facility] SARS-COV-2 COVID-19 VACCINE - (MODERNA) 2021-11-04 00:00:00 Completed [facility] SARS-COV-2 COVID-19 VACCINE - (MODERNA) 2021-11-04 00:00:00 Completed [facility] SARS-COV-2 COVID-19 VACCINE - (MODERNA) 2021-11-04 00:00:00 Completed [facility] SARS-COV-2 COVID-19 VACCINE - (MODERNA) 2021-11-04 00:00:00 Completed [facility] SARS-COV-2 COVID-19 VACCINE - (MODERNA) 2021-11-04 00:00:00 Completed [facility] SARS-COV-2 COVID-19 VACCINE - (MODERNA) 2021-11-04 00:00:00 Completed [facility] SARS-COV-2 COVID-19 VACCINE - (MODERNA) 2021-11-04 00:00:00 Completed [facility] SARS-COV-2 COVID-19 VACCINE - (MODERNA) 2021-11-04 00:00:00 Completed [facility] SARS-COV-2 COVID-19 VACCINE - (MODERNA) Unknown Completed [facility] SARS-COV-2 COVID-19 VACCINE - (MODERNA) Unknown Completed [facility] SARS-COV-2 COVID-19 VACCINE - (MODERNA) Unknown Completed [facility] SARS-COV-2 COVID-19 VACCINE - (MODERNA) Unknown Completed [facility] SARS-COV-2 COVID-19 VACCINE - (MODERNA) Unknown Completed [facility] SARS-COV-2 COVID-19 VACCINE - (MODERNA) Unknown Completed [facility] SARS-COV-2 COVID-19 VACCINE - (MODERNA) Unknown Completed [facility] SARS-COV-2 COVID-19 VACCINE - (MODERNA) Unknown Completed [facility] SARS-COV-2 COVID-19 VACCINE - (MODERNA) Unknown Completed [facility] SARS-COV-2 COVID-19 VACCINE - (MODERNA) Unknown Completed [facility] SARS-COV-2 COVID-19 VACCINE - (MODERNA) Unknown Completed [facility] SARS-COV-2 COVID-19 VACCINE - (MODERNA) Unknown Completed [facility] SARS-COV-2 COVID-19 VACCINE - (MODERNA) Unknown Completed [facility] SARS-COV-2 COVID-19 VACCINE - (MODERNA) Unknown Completed [facility] SARS-COV-2 COVID-19 VACCINE - (MODERNA) Unknown Completed [facility] SARS-COV-2 COVID-19 VACCINE - (MODERNA) Unknown Completed [facility] SARS-COV-2 COVID-19 VACCINE - (MODERNA) Unknown Completed [facility] SARS-COV-2 COVID-19 VACCINE - (MODERNA) Unknown Completed [facility] SARS-COV-2 COVID-19 VACCINE - (MODERNA) Unknown Completed [facility] Vital Signs Vital Name Observation Time Observation Value Comments S ource Systolic blood pressure 2023-04-27 19:29:00 161 mm[Hg] [facility] Diastolic blood pressure 2023-04-27 19:29:00 108 mm[Hg] [facility] Heart rate 2023-04-27 19:29:00 106 /min [facility]ive [facility] Body temperature 2023-04-27 19:29:00 37.11 Marbella [facility] Respiratory rate 2023-04-27 19:29:00 16 /min [facility] Body height 2023-04-27 19:29:00 165.1 cm [facility] Body weight 2023-04-27 19:29:00 113.399 kg [facility] BMI 2023-04-27 19:29:00 41.60 kg/m2 [facility] Oxygen saturation in Arterial blood by Pulse oximetry 2023-04-27 19:29:00 97 /min [facility] Systolic blood pressure 2023-03-02 20:28:00 125 mm[Hg] [facility] Diastolic blood pressure 2023-03-02 20:28:00 86 mm[Hg] [facility] Heart rate 2023-03-02 20:28:00 113 /min [facility] Body temperature 2023-03-02 20:23:00 36.56 Marbella [facility] Respiratory rate 2023-03-02 20:23:00 16 /min [facility] Body height 2023-03-02 20:23:00 165.1 cm [facility] Body weight 2023-03-02 20:23:00 110.678 kg [facility] BMI 2023-03-02 20:23:00 40.60 kg/m2 [facility] Oxygen saturation in Arterial blood by Pulse oximetry 2023-03-02 20:23:00 96 /min [facility] Systolic blood pressure 2023-02-04 16:53:00 153 mm[Hg] [facility] Diastolic blood pressure 2023-02-04 16:53:00 98 mm[Hg] [facility] Heart rate 2023-02-04 16:53:00 118 /min [facility] Oxygen saturation in Arterial blood by Pulse oximetry 2023-02-04 16:53:00 97 /min [facility] Body temperature 2023-02-04 16:51:00 36.78 Marbella [facility] Respiratory rate 2023-02-04 16:51:00 18 /min [facility] Body weight 2023-02-04 16:51:00 107.956 kg [facility] BMI 2023-02-04 16:51:00 39.61 kg/m2 [facility] Systolic blood pressure 2022-11-26 13:44:00 149 mm[Hg] [facility] Diastolic blood pressure 2022-11-26 13:44:00 93 mm[Hg] [facility] Heart rate 2022-11-26 13:44:00 107 /min [facility] Body temperature 2022-11-26 13:43:00 35.78 Marbella [facility] Respiratory rate 2022-11-26 13:43:00 18 /min [facility] Body weight 2022-11-26 13:43:00 109.317 kg [facility] BMI 2022-11-26 13:43:00 40.10 kg/m2 [facility] Oxygen saturation in Arterial blood by Pulse oximetry 2022-11-26 13:43:00 95 /min [facility] Systolic blood pressure 2022-10-29 13:17:00 150 mm[Hg] [facility] Diastolic blood pressure 2022-10-29 13:17:00 100 mm[Hg] [facility] Heart rate 2022-10-29 13:17:00 119 /min [facility] Oxygen saturation in Arterial blood by Pulse oximetry 2022-10-29 13:17:00 96 /min [facility] Respiratory rate 2022-10-29 13:16:00 18 /min [facility] Body height 2022-10-29 13:16:00 165.1 cm [facility] Body weight 2022-10-29 13:16:00 112.038 kg [facility] BMI 2022-10-29 13:16:00 41.10 kg/m2 [facility] Systolic blood pressure 2022-10-19 12:37:00 164 mm[Hg] [facility] Diastolic blood pressure 2022-10-19 12:37:00 108 mm[Hg] [facility] Heart rate 2022-10-19 12:37:00 97 /min [facility] Body temperature 2022-10-19 12:37:00 37.33 Marbella [facility] Respiratory rate 2022-10-19 12:37:00 20 /min [facility] Oxygen saturation in Arterial blood by Pulse oximetry 2022-10-19 12:37:00 97 /min [facility] Body weight 2022-10-19 08:45:00 113.853 kg [facility] BMI 2022-10-19 08:45:00 41.77 kg/m2 [facility] Body height 2022-10-13 05:31:00 165.1 cm [facility] Systolic blood pressure 2022-10-12 11:23:00 176 mm[Hg] [facility] Diastolic blood pressure 2022-10-12 11:23:00 102 mm[Hg] [facility] Heart rate 2022-10-12 11:23:00 103 /min [facility] Body temperature 2022-10-12 11:22:00 35.89 Marbella [facility] Respiratory rate 2022-10-12 11:22:00 17 /min [facility] Body height 2022-10-12 11:22:00 165.1 cm [facility] Body weight 2022-10-12 11:22:00 109.317 kg [facility] BMI 2022-10-12 11:22:00 40.10 kg/m2 [facility] Oxygen saturation in Arterial blood by Pulse oximetry 2022-10-12 11:22:00 96 /min [facility] Systolic blood pressure 2022-09-24 13:14:00 175 mm[Hg] [facility] Diastolic blood pressure 2022-09-24 13:14:00 124 mm[Hg] [facility] Body temperature 2022-09-24 13:14:00 36.33 Marbella [facility] Respiratory rate 2022-09-24 13:14:00 18 /min [facility] Body weight 2022-09-24 13:14:00 113.399 kg [facility] BMI 2022-09-24 13:14:00 41.60 kg/m2 [facility] Heart rate 2022-09-24 13:07:00 117 /min [facility] height 2022-09-24 13:07:00 165.1 cm [facility] Oxygen saturation in Arterial blood by Pulse oximetry 2022-09-24 13:07:00 95 /min [facility] Systolic blood pressure 2022-08-05 18:15:00 142 mm[Hg] [facility] Diastolic blood pressure 2022-08-05 18:15:00 99 mm[Hg] [facility] Heart rate 2022-08-05 18:15:00 90 /min [facility] Respiratory rate 2022-08-05 18:15:00 16 /min [facility] Oxygen saturation in Arterial blood by Pulse oximetry 2022-08-05 18:15:00 99 /min [facility] Systolic blood pressure 2022-07-07 16:02:00 116 mm[Hg] [facility] Diastolic blood pressure 2022-07-07 16:02:00 83 mm[Hg] [facility] Heart rate 2022-07-07 16:02:00 90 /min [facility] Body temperature 2022-07-07 16:02:00 36.56 Marbella [facility] Respiratory rate 2022-07-07 16:02:00 20 /min [facility] Oxygen saturation in Arterial blood by Pulse oximetry 2022-07-07 16:02:00 94 /min [facility] Body height 2022-07-03 10:45:00 165.1 cm [facility] Body weight 2022-07-03 10:45:00 113.399 kg [facility] BMI 2022-07-03 10:45:00 41.60 kg/m2 [facility] Systolic blood pressure 2022-07-03 16:15:00 144 mm[Hg] [facility] Diastolic blood pressure 2022-07-03 16:15:00 94 mm[Hg] [facility] Heart rate 2022-07-03 16:15:00 89 /min Unive [facility] Respiratory rate 2022-07-03 16:15:00 19 /min [facility] Oxygen saturation in Arterial blood by Pulse oximetry 2022-07-03 16:15:00 100 /min [facility] Body temperature 2022-07-03 15:38:00 36.17 Marbella [facility] Body height 2022-07-03 10:45:00 165.1 cm [facility] Body weight 2022-07-03 10:45:00 113.399 kg [facility] BMI 2022-07-03 10:45:00 41.60 kg/m2 [facility] Systolic blood pressure 2022-05-31 11:00:00 113 mm[Hg] [facility] Diastolic blood pressure 2022-05-31 11:00:00 67 mm[Hg] [facility] Heart rate 2022-05-31 11:00:00 95 /min [facility] Respiratory rate 2022-05-31 11:00:00 24 /min [facility] Oxygen saturation in Arterial blood by Pulse oximetry 2022-05-31 11:00:00 90 /min [facility] Body temperature 2022-05-31 10:06:00 36.78 Marbella [facility] Body height 2022-05-31 10:06:00 165.1 cm [facility] Body weight 2022-05-31 10:06:00 114.306 kg [facility] BMI 2022-05-31 10:06:00 41.93 kg/m2 [facility] Systolic blood pressure 2022-05-10 23:00:00 152 mm[Hg] [facility] Diastolic blood pressure 2022-05-10 23:00:00 92 mm[Hg] [facility] Heart rate 2022-05-10 23:00:00 92 /min Unive [facility] Respiratory rate 2022-05-10 23:00:00 16 /min [facility] Oxygen saturation in Arterial blood by Pulse oximetry 2022-05-10 23:00:00 98 /min [facility] Body temperature 2022-05-10 20:20:00 36.89 Marbella [facility] Body height 2022-05-10 20:20:00 165.1 cm [facility] Body weight 2022-05-10 20:20:00 111.131 kg [facility] BMI 2022-05-10 20:20:00 40.77 kg/m2 [facility] Systolic blood pressure 2022-04-07 16:20:00 135 mm[Hg] [facility] Diastolic blood pressure 2022-04-07 16:20:00 90 mm[Hg] [facility] Heart rate 2022-04-07 16:20:00 121 /min Unive [facility] Body temperature 2022-04-07 16:20:00 36.78 Marbella [facility] Respiratory rate 2022-04-07 16:20:00 18 /min [facility] Body height 2022-04-07 16:20:00 165.1 cm [facility] Body weight 2022-04-07 16:20:00 111.812 kg [facility] BMI 2022-04-07 16:20:00 41.02 kg/m2 [facility] Systolic blood pressure 2022-03-24 15:27:00 137 mm[Hg] [facility] Diastolic blood pressure 2022-03-24 15:27:00 88 mm[Hg] [facility] Heart rate 2022-03-24 15:27:00 112 /min Unive [facility] Body temperature 2022-03-24 15:26:00 36.72 Marbella [facility] Respiratory rate 2022-03-24 15:26:00 18 /min [facility] Body height 2022-03-24 15:26:00 165.1 cm [facility] Body weight 2022-03-24 15:26:00 113.671 kg [facility] BMI 2022-03-24 15:26:00 41.70 kg/m2 [facility] Systolic blood pressure 2022-03-02 17:22:00 131 mm[Hg] [facility] Diastolic blood pressure 2022-03-02 17:22:00 77 mm[Hg] [facility] Heart rate 2022-03-02 17:22:00 93 /min Unive [facility] Body temperature 2022-03-02 17:22:00 37.06 Marbella [facility] Respiratory rate 2022-03-02 17:22:00 20 /min [facility] Oxygen saturation in Arterial blood by Pulse oximetry 2022-03-02 17:22:00 96 /min [facility] Body height 2022-02-25 12:56:00 165.1 cm [facility] Body weight 2022-02-25 12:56:00 113.399 kg [facility] BMI 2022-02-25 12:56:00 41.60 kg/m2 [facility] Systolic blood pressure 2022-02-25 12:56:00 142 mm[Hg] [facility] Diastolic blood pressure 2022-02-25 12:56:00 88 mm[Hg] [facility] Heart rate 2022-02-25 12:56:00 99 /min Unive [facility] Body temperature 2022-02-25 12:56:00 36.5 Marbella [facility] Respiratory rate 2022-02-25 12:56:00 18 /min [facility] Body height 2022-02-25 12:56:00 165.1 cm [facility] Body weight 2022-02-25 12:56:00 113.399 kg [facility] BMI 2022-02-25 12:56:00 41.60 kg/m2 [facility] Oxygen saturation in Arterial blood by Pulse oximetry 2022-02-25 12:56:00 94 /min [facility] Systolic blood pressure 2022-02-23 18:56:00 140 mm[Hg] [facility] Diastolic blood pressure 2022-02-23 18:56:00 95 mm[Hg] [facility] Heart rate 2022-02-23 18:56:00 90 /min Unive [facility] Body temperature 2022-02-23 18:38:00 36 Marbella [facility] Respiratory rate 2022-02-23 18:38:00 18 /min [facility] Body height 2022-02-23 18:38:00 165.1 cm [facility] Body weight 2022-02-23 18:38:00 113.399 kg [facility] BMI 2022-02-23 18:38:00 44.75 kg/m2 [facility] Oxygen saturation in Arterial blood by Pulse oximetry 2022-02-23 18:38:00 97 /min [facility] Systolic blood pressure 2021-12-12 18:07:00 119 mm[Hg] [facility] Diastolic blood pressure 2021-12-12 18:07:00 90 mm[Hg] [facility] Respiratory rate 2021-12-12 18:07:00 20 /min [facility] Oxygen saturation in Arterial blood by Pulse oximetry 2021-12-12 18:07:00 96 /min [facility] Body temperature 2021-12-12 17:47:00 36.39 Marbella [facility] Heart rate 2021-12-12 14:23:00 88 /min [facility] Body height 2021-12-02 15:52:00 165.1 cm [facility] Body weight 2021-12-02 15:52:00 120.9 kg [facility] BMI 2021-12-02 15:52:00 44.35 kg/m2 [facility] Respiratory rate 2021-12-12 17:42:00 27 /min [facility] Systolic blood pressure 2021-12-12 14:23:00 160 mm[Hg] [facility] Diastolic blood pressure 2021-12-12 14:23:00 96 mm[Hg] [facility] Heart rate 2021-12-12 14:23:00 88 /min Unive [facility] Body temperature 2021-12-12 14:23:00 36.61 Marbella [facility] Respiratory rate 2021-12-12 14:23:00 20 /min [facility] Oxygen saturation in Arterial blood by Pulse oximetry 2021-12-12 14:23:00 93 /min [facility] Body height 2021-12-02 15:52:00 165.1 cm [facility] Body weight 2021-12-02 15:52:00 120.9 kg [facility] BMI 2021-12-02 15:52:00 44.35 kg/m2 [facility] Systolic blood pressure 2021-11-28 16:32:00 160 mm[Hg] [facility] Diastolic blood pressure 2021-11-28 16:32:00 100 mm[Hg] [facility] Heart rate 2021-11-28 16:32:00 100 /min Unive [facility] Body temperature 2021-11-28 16:32:00 36.61 Marbella [facility] Respiratory rate 2021-11-28 16:32:00 18 /min [facility] Body height 2021-11-28 16:32:00 165.1 cm [facility] Body weight 2021-11-28 16:32:00 120.929 kg [facility] BMI 2021-11-28 16:32:00 44.36 kg/m2 [facility] Oxygen saturation in Arterial blood by Pulse oximetry 2021-11-28 16:32:00 100 /min [facility] Procedures Procedure Date / Time Performed Performing Clinician Source REFERRAL- REQUEST/RESPONSE 2023-03-09 06:01:00 D octor Unassigned, [place] [facility] REFERRAL- REQUEST/RESPONSE 2023-02-22 06:01:00 D octor Unassigned, [place] [facility] REFERRAL- REQUEST/RESPONSE 2023-02-03 06:01:00 D octor Unassigned, [place] [facility] BASIC METABOLIC PANEL (NA, K, CL, CO2, GLUCOSE, BUN, CREATININE, CA) 2022-10-17 01:19:00 Gabriel [facility] CBC WITH DIFF 2022-10-17 01:19:00 Gabriel [facility] CBC WITH DIFF 2022-10-14 18:14:00 Gabriel [facility] BASIC METABOLIC PANEL (NA, K, CL, CO2, GLUCOSE, BUN, CREATININE, CA) 2022-10-14 18:13:00 Gabriel [facility] BASIC METABOLIC PANEL (NA, K, CL, CO2, GLUCOSE, BUN, CREATININE, CA) 2022-10-13 22:55:00 Marian Reyes [facility] CBC WITH DIFF 2022-10-13 13:28:00 Marian Reyes U [facility] CBC WITH DIFF 2022-10-13 13:28:00 [facility] 2022-10-13 09:54:00 Marian Reyes Un iversity [facility] MAGNESIUM 2022-10-13 09:54:00 [facility] BASIC MET[facility]OLIC PANEL (NA, K, CL, CO2, GLUCOSE, BUN, CREATININE, CA) 2022-10-13 09:54:00 Marian Reyes [facility] PHOSPHORUS 2022-10-13 09:54:00 Marian Reyes Un iversity [facility] MAGNESIUM 2022-10-13 09:54:00 [facility] BASIC MET[facility]OLIC PANEL (NA, K, CL, CO2, GLUCOSE, BUN, CREATININE, CA) 2022-10-13 09:54:00 Marian Reyes [facility] XR KUB 2022-10-13 02:36:20 Ra ann marie Daley [facility] XR KUB 2022-10-13 02:36:20 Ra ann marie Daley [facility] XR ABDOMEN 1 VW 2022-10-13 00:10:18 Marian Reyes [facility] XR ABDOMEN 1 VW 2022-10-13 00:10:18 Robert Reyesssica [facility] SURGICAL PATHOLOGY EXAM 2022-10-12 16:24:00 Serena Rios [facility] INTUBATION 2022-10-12 14:57:00 Fish Stover [facility] ROBOTIC ASSISTED LAPAROSCOPIC COLOSTOMY REVERSAL 2022-10-12 14:26:00 Morena Rios [facility] COLOSTOMY REVERSAL 2022-10-12 14:26:00 Morena Rios [facility] PARASTOMAL HERNIORRHAPHY 2022-10-12 14:26:00 Harrison Rios [facility] ROBOTIC ASSISTED LAPAROSCOPIC COLOSTOMY REVERSAL 2022-10-12 14:26:00 Morena Rios [facility] COLOSTOMY REVERSAL 2022-10-12 14:26:00 Morena Rios [facility] PARASTOMAL HERNIORRHAPHY 2022-10-12 14:26:00 Harrison Rios [facility] ASSIGNMENT OF BENEFITS 2022-10-12 10:40:14 Docto r Unassigned, [place] [facility] DSU PRE-OP 2022-09-24 05:01:00 Doctor Unass igned, [place] [facility] DME/SUPPLY JUSTIFICATION 2022-09-14 05:01:00 Doc tor Unassigned, [place] [facility] IR DRAINAGE BY CATHETER PERITONEAL OR RETROPERITONEAL 2022-08-05 18:15:59 Gabriel [facility] BODY FLUID CULTURE(AEROBIC/ANAEROBIC) 2022-08-05 18:14:00 Gabriel [facility] GLUCOSE BODY FLUID 2022-08-05 18:11:00 Morena Rios [facility] T.PROTEIN BODY FLUID 2022-08-05 18:11:00 Gabriel [facility] BODY FLUID DIRECT COUNT 2022-08-05 18:11:00 Serena Rios [facility] LDH TOTAL BODY FLUID 2022-08-05 18:11:00 Gabriel [facility] DME/SUPPLY JUSTIFICATION 2022-07-29 05:01:00 Doc tor Unassigned, [place] [facility] CT ABDOMEN PELVIS W CONTRAST 2022-07-25 16:11:49 Morena Rios [facility] PHOSPHORUS 2022-07-06 23:11:00 Angelo miranda [facility] MAGNESIUM 2022-07-06 23:11:00 Angelo miranda [facility] BASIC METABOLIC PANEL (NA, K, CL, CO2, GLUCOSE, BUN, CREATININE, CA) 2022-07-06 23:11:00 Agnelo Smith [facility] PHOSPHORUS 2022-07-06 23:11:00 Angelo miranda [facility] MAGNESIUM 2022-07-06 23:11:00 Lambbrenda miranda [facility] BASIC METABOLIC PANEL (NA, K, CL, CO2, GLUCOSE, BUN, CREATININE, CA) 2022-07-06 23:11:00 Angelo Smith [facility] XR KUB 2022-07-05 14:55:25 Marian Reyes Un iversity of [facility] XR KUB 2022-07-05 14:55:25 Marian Reyes Un iversity [facility] CBC WITH DIFF 2022-07-05 13:37:00 Marian Reyes U niversity [facility] CBC WITH DIFF 2022-07-05 13:37:00 Marian Reyes U niversity [facility] PHOSPHORUS 2022-07-05 13:36:00 Marian Reyes Un iversity of [facility] MAGNESIUM 2022-07-05 13:36:00 Marian Reyes Un iversity [facility] BASIC METABOLIC PANEL (NA, K, CL, CO2, GLUCOSE, BUN, CREATININE, CA) 2022-07-05 13:36:00 Marian Reyes [facility] PHOSPHORUS 2022-07-05 13:36:00 Marian Reyes [facility] MAGNESIUM 2022-07-05 13:36:00 Marian Reyes [facility] BASIC METABOLIC PANEL (NA, K, CL, CO2, GLUCOSE, BUN, CREATININE, CA) 2022-07-05 13:36[facility] 2022-07-04 16:03:00 GabrielMorena segundo [facility] SEDIMENTATION RATE 2022-07-04 16:03:00 GabrielMorena segundo [facility] ANTI-NUCLEAR ANTIBODY SCREEN 2022-07-04 16:03:00 Gabriel, [facility] ANTI-NUCLEAR ANTIBODY-PATHOLOGIST INTERPRETATION 2022-07-04 16:03:00 Gabriel, [facility] C-REACTIVE PROTEIN 2022-07-04 16:03:00 Morena Rios [facility] SEDIMENTATION RATE 2022-07-04 16:03:00 Morena Rios [facility] ANTI-NUCLEAR ANTIBODY SCREEN 2022-07-04 16:03:00 Gabriel, [facility] ANTI-NUCLEAR ANTIBODY-PATHOLOGIST INTERPRETATION 2022-07-04 16:03:00 Gabriel [facility] BASIC METABOLIC PANEL (NA, K, CL, CO2, GLUCOSE, BUN, CREATININE, CA) 2022-07-04 09:23:00 Angelo Smith [facility] CBC WITHOUT DIFF 2022-07-04 09:23:00 Morena Rios [facility] BASIC METABOLIC PANEL (NA, K, CL, CO2, GLUCOSE, BUN, CREATININE, CA) 2022-07-04 09:23:00 Angelo Smith [facility] CBC WITHOUT DIFF 2022-07-04 09:23:00 Morena Rios [facility] URINALYSIS 2022-07-03 23:22:00 Morena Rios [facility] URINALYSIS 2022-07-03 23:22:00 Morena Rios [facility] REPAIR HERNIA ROBOT-ASSISTED PARASTOMAL 2022-07-03 12:00:00 Gabriel [facility] REPAIR HERNIA ROBOT-ASSISTED PARASTOMAL 2022-07-03 12:00:00 Gabriel [facility] COMP. METABOLIC PANEL ([id number]) 2022-07-03 11:17:00 Gabriel, [facility] CBC WITH DIFF 2022-07-03 11:17:00 Gabriel, [facility] HB ABO GROUPING 2022-07-03 11:17:00 Gabriel, [facility] COMP. METABOLIC PANEL ([id number]) 2022-07-03 11:17:00 Gabriel, [facility] CBC WITH DIFF 2022-07-03 11:17:00 Gabriel, [facility] HB ABO GROUPING 2022-07-03 11:17:00 Gabriel [facility] POCT NICOTINE-URINE/PLASMA 2022-07-03 11:00:00 Gabriel [facility] POCT NICOTINE-URINE/PLASMA 2022-07-03 11:00:00 Gabriel [facility] HOSPITAL ADMISSION 2022-07-03 05:01:00 Doctor Un assigned, [place] [facility] REFERRAL- REQUEST/RESPONSE 2022-06-26 05:01:00 D octor Unassigned, [place] [facility] INSURANCE CORRESPONDENCE 2022-06-18 05:01:00 Doc tor Unassigned, [place] [facility] CT ABDOMEN PELVIS W CONTRAST 2022-05-31 11:28:25 Shellie Arnett [facility] COMP. METABOLIC PANEL ([id number]) 2022-05-31 10:43:00 Shellie Arnett [facility] CBC WITH DIFF 2022-05-31 10:43:00 Shellie Arnett [facility] POCT TEST 2022-05-31 10:32:00 Shellie Arnett [facility] URINALYSIS 2022-05-31 10:13:00 Shellie Arnett [facility] NOTICE OF PRIVACY PRACTICES 2022-05-31 10:00:37 Doctor Unassigned, [place] [facility] CONSENT/REFUSAL FOR DIAGNOSIS AND TREATMENT 2022-05-31 09:59:57 Doctor Unassigned, [place] [facility] PHYSICIAN ORDERS 2022-05-21 05:01:00 Doctor Unas signed, [place] [facility] PHYSICIAN ORDERS 2022-05-21 05:01:00 Doctor Unas signed, [place] [facility] CT ABDOMEN PELVIS W CONTRAST 2022-05-10 21:39:46 Yamile Anand [facility] COMP. METABOLIC PANEL ([id number]) 2022-05-10 21:11:00 Yamile Anand [facility] CBC WITH DIFF 2022-05-10 21:11:00 Yamile Anand [facility] GLYCOSYLATED HEMOGLOBIN (A1C) 2022-05-10 21:11:00 Yamile Anand [facility] NOTICE OF PRIVACY PRACTICES 2022-05-10 20:30:15 Doctor Unassigned, [place] [facility] CONSENT/REFUSAL FOR DIAGNOSIS AND TREATMENT 2022-05-10 20:14:28 Doctor Unassigned, [place] [facility] DME/SUPPLY JUSTIFICATION 2022-04-09 06:01:00 Doc tor Unassigned, [place] [facility] POCT GLUCOSE (AUTOMATED) 2022-02-27 17:54:00 Harrison Rios [facility] POCT GLUCOSE (AUTOMATED) 2022-02-27 13:15:00 Harrison Rios [facility] BASIC METABOLIC PANEL (NA, K, CL, CO2, GLUCOSE, BUN, CREATININE, CA) 2022-02-27 06:51:00 Rocio Oglesby [facility] CBC WITHOUT DIFF 2022-02-27 06:51:00 Rocio Oglesby [facility] POCT GLUCOSE (AUTOMATED) 2022-02-27 02:18:00 Harrison Rios [facility] POCT GLUCOSE (AUTOMATED) 2022-02-26 22:37:00 Harrison Rios [facility] POCT GLUCOSE (AUTOMATED) 2022-02-26 18:25:00 Harrison Rios [facility] POCT GLUCOSE (AUTOMATED) 2022-02-26 18:25:00 GabrielHarrison segundo pablito [facility] POCT GLUCOSE (AUTOMATED) 2022-02-26 13:32:00 GabrielHarrison segundo [facility] POCT GLUCOSE (AUTOMATED) 2022-02-26 13:32:00 GabrielHarrison segundo [facility] BASIC METABOLIC PANEL (NA, K, CL, CO2, GLUCOSE, BUN, CREATININE, CA) 2022-02-26 10:44:00 Gabriel, [facility] CBC WITH DIFF 2022-02-26 10:44:00 Gabriel, [facility] BASIC METABOLIC PANEL (NA, K, CL, CO2, GLUCOSE, BUN, CREATININE, CA) 2022-02-26 10:44:00 Gabriel, [facility] CBC WITH DIFF 2022-02-26 10:44:00 Gabriel, [facility] POCT GLUCOSE (AUTOMATED) 2022-02-26 02:51:00 GabrielHarrison segundo [facility] POCT GLUCOSE (AUTOMATED) 2022-02-26 02:51:00 GabrielHarrison segundo [facility] POCT GLUCOSE (AUTOMATED) 2022-02-25 23:13:00 GabrielHarrison segundo [facility] POCT GLUCOSE (AUTOMATED) 2022-02-25 23:13:00 GabrielHarrison segundo [facility] SURGICAL PATHOLOGY EXAM 2022-02-25 19:48:00 Serena Rios [facility] FL TIME OR (NON-REPORTABLE) 2022-02-25 19:10:00 Gabriel Morena [facility] FL TIME OR (NON-REPORTABLE) 2022-02-25 19:10:00 Gabriel [facility] LAPAROSCOPIC ROBOTIC ASSISTED LOWER ANTERIOR RESECTION 2022-02-25 12:50:00 Gabriel [facility] CYSTOSCOPY 2022-02-25 12:50:00 Oneal Anderson [facility] DIAGNOSTIC LAPAROSCOPY 2022-02-25 12:50:00 Melba Anderson [facility] LAPAROSCOPIC ROBOTIC ASSISTED LOWER ANTERIOR RESECTION 2022-02-25 12:50:00 Morena Rios [facility] CYSTOSCOPY 2022-02-25 12:50:00 [facility] 2022-02-25 12:50:00 Melba Anderson [facility] CBC WITH DIFF 2022-02-25 12:19:00 EsequielReg nayeli [facility] CBC WITH DIFF 2022-02-25 12:19:00 EsequielReg [facility] PHOSPHORUS 2022-02-25 09:45:00 EsequielReg [facility] MAGNESIUM 2022-02-25 09:45:00 EsequielReg [facility] BASIC METABOLIC PANEL (NA, K, CL, CO2, GLUCOSE, BUN, CREATININE, CA) 2022-02-25 09:45:00 EsequielCadence [facility] PHOSPHORUS 2022-02-25 09:45:00 EsequielReg [facility] MAGNESIUM 2022-02-25 09:45:00 EsequielReg [facility] BASIC METABOLIC PANEL (NA, K, CL, CO2, GLUCOSE, BUN, CREATININE, CA) 2022-02-25 09:45:00 EsequielCadence [facility] POCT GLUCOSE (AUTOMATED) 2022-02-25 03:05:00 Harrison Rios [facility] POCT GLUCOSE (AUTOMATED) 2022-02-25 03:05:00 Harrison Rios [facility] POCT GLUCOSE (AUTOMATED) 2022-02-24 22:34:00 Harrison Rios [facility] POCT GLUCOSE (AUTOMATED) 2022-02-24 22:34:00 Harrison Rios [facility] THYROID STIMULATING HORMONE 2022-02-24 18:29:00 Morena Rios [facility] FREE T4 2022-02-24 18:29:00 Morena Rios [facility] THYROID STIMULATING HORMONE 2022-02-24 18:29:00 Gabriel [facility] FREE T3 2022-02-24 18:29:00 Gabriel, [facility] FREE T4 2022-02-24 18:29:00 Gabriel, [facility] THYROID STIMULATING HORMONE 2022-02-24 18:29:00 Gabriel, [facility] FREE T3 2022-02-24 18:29:00 Gabriel, [facility] POCT GLUCOSE (AUTOMATED) 2022-02-24 17:50:00 GabrielHarrison segundo [facility] [facility] POCT GLUCOSE (AUTOMATED) 2022-02-24 17:50:00 GabrielHarrison segundo [facility] POCT GLUCOSE (AUTOMATED) 2022-02-24 17:50:00 GabrielHarrison segundo [facility] POCT GLUCOSE (AUTOMATED) 2022-02-24 15:07:00 GabrielHarrison segundo [facility] POCT GLUCOSE (AUTOMATED) 2022-02-24 15:07:00 GabrielHarrison segundo [facility] POCT GLUCOSE (AUTOMATED) 2022-02-24 15:07:00 GabrielHarrison segundo pablito [facility] PHOSPHORUS 2022-02-24 10:34:00 King zamora [facility] MAGNESIUM 2022-02-24 10:34:00 King zamora [facility] BASIC METABOLIC PANEL (NA, K, CL, CO2, GLUCOSE, BUN, CREATININE, CA) 2022-02-24 10:34:00 King Tinoco [facility] CBC WITH DIFF 2022-02-24 10:34:00 King zamora [facility] PHOSPHORUS 2022-02-24 10:34:00 King zamora [facility] MAGNESIUM 2022-02-24 10:34:00 King zamora [facility] BASIC METABOLIC PANEL (NA, K, CL, CO2, GLUCOSE, BUN, CREATININE, CA) 2022-02-24 10:34:00 King Tinoco [facility] CBC WITH DIFF 2022-02-24 10:34:00 King zamora, [facility] PHOSPHORUS 2022-02-24 10:34:00 King zamora, [facility] MAGNESIUM 2022-02-24 10:34:00 King zamora [facility] BASIC METABOLIC PANEL (NA, K, CL, CO2, GLUCOSE, BUN, CREATININE, CA) 2022-02-24 10:34:00 King Tinoco [facility] CBC WITH DIFF 2022-02-24 10:34:00 King zamora [facility] POCT GLUCOSE (AUTOMATED) 2022-02-24 04:23:00 Harrison Rios [facility] POCT GLUCOSE (AUTOMATED) 2022-02-24 04:23:00 Harrison Rios [facility] POCT GLUCOSE (AUTOMATED) 2022-02-24 04:23:00 Harrison Rios [facility] BASIC METABOLIC PANEL (NA, K, CL, CO2, GLUCOSE, BUN, CREATININE, CA) 2022-02-24 03:23:00 King Tinoco [facility] BASIC METABOLIC PANEL (NA, K, CL, CO2, GLUCOSE, BUN, CREATININE, CA) 2022-02-24 03:23:00 King Tinoco [facility] BASIC METABOLIC PANEL (NA, K, CL, CO2, GLUCOSE, BUN, CREATININE, CA) 2022-02-24 03:23:00 King Tinoco [facility] POCT NICOTINE-URINE/PLASMA 2022-02-23 21:14:00 Gabriel [facility] POCT NICOTINE-URINE/PLASMA 2022-02-23 21:14:00 Gabriel [facility] POCT NICOTINE-URINE/PLASMA 2022-02-23 21:14:00 Gabriel [facility] LAPAROSCOPIC ROBOTIC ASSISTED RECTOPEXY 2022-02-23 20:35:00 Gabriel [facility] LAPAROSCOPIC ROBOTIC ASSISTED RECTOPEXY 2022-02-23 20:35:00 Gabriel, [facility] ABORH CONFIRMATION (LAB ONLY) 2022-02-23 20:05:00 Gabriel, [facility] ABORH CONFIRMATION (LAB ONLY) 2022-02-23 20:05:00 Gabriel, [facility] ABORH CONFIRMATION (LAB ONLY) 2022-02-23 20:05:00 Gabriel, [facility] HB ABO GROUPING 2022-02-23 19:05:00 Gabriel, [facility] HB ABO GROUPING 2022-02-23 19:05:00 Gabriel, [facility] HB ABO GROUPING 2022-02-23 19:05:00 Gabriel, [facility] BASIC METABOLIC PANEL (NA, K, CL, CO2, GLUCOSE, BUN, CREATININE, CA) 2022-02-23 19:04:00 Gabriel, [facility] CBC WITH DIFF 2022-02-23 19:04:00 Gabriel, [facility] BASIC METABOLIC PANEL (NA, K, CL, CO2, GLUCOSE, BUN, CREATININE, CA) 2022-02-23 19:04:00 Gabriel, [facility] CBC WITH DIFF 2022-02-23 19:04:00 Gabriel, [facility] BASIC METABOLIC PANEL (NA, K, CL, CO2, GLUCOSE, BUN, CREATININE, CA) 2022-02-23 19:04:00 Gabriel, [facility] CBC WITH DIFF 2022-02-23 19:04:00 Gabriel, [facility] ASSIGNMENT OF BENEFITS 2022-02-23 18:11:13 Docto r Unassigned, [place] [facility] COLONOSCOPY 2021-12-12 16:51:00 Duy Woodruff [facility] COLONOSCOPY (ENDO) 2021-12-12 13:22:32 Duy Woodruff [facility] COLONOSCOPY (ENDO) 2021-12-12 13:22:32 Duy Woodruff [facility] DAY SURGERY - ADC 2021-12-12 05:01:00 Doctor Camille ssigned, [place] [facility] Encounters Start Date/Time End Date/Time Encounter Type Admission Type Attending Clinicians Care Facility Care Department Encounter ID Source 2023-07-29 00:00:00 2023-09-04 18:24:54 Patient Secure Msg Ryan [facility] MEDICAL OFFICE BUILDING 1.2.840.114 350.1.13.10 4.2.7.2.686 [id number] [facility] 2023-04-27 13:00:00 2023-04-27 13:15:00 Office Visit Ryan [facility] OFFICE BUILDING 1.2.840.114 350.1.13.10 4.2.7.2.686 [id number] [facility] 2023-04-27 13:00:00 2023-04-27 13:00:00 Outpatient DONITA NEUMANN [facility] [id number] [facility] 2023-03-19 16:00:00 2023-03-19 16:00:00 Outpatient R GAVIN RIOS [facility] [id number] [facility] 2023-03-09 00:00:00 2023-03-09 00:00:00 Orders Only Doctor Unassigned, [place] [facility] 1.2.840.114 350.1.13.10 4.2.7.2.686 [id number] [id number] [facility] 2023-03-04 13:00:00 2023-03-04 13:00:00 Outpatient MORENA COX [facility] [id number] [facility] 2023-03-02 14:00:00 2023-03-02 15:06:48 Outpatient R RYAN [facility] [id number] [facility] 2023-03-02 14:00:00 2023-03-02 15:06:48 Office Visit Ryan [facility] MEDICAL OFFICE BUILDING 1.2.840.114 350.1.13.10 4.2.7.2.686 [id number] [facility] 2023-02-22 00:00:00 2023-02-22 00:00:00 Orders Only Doctor Unassigned, [place] [facility] 1.2.840.114 350.1.13.10 4.2.7.2.686 [id number] [id number] [facility] 2023-02-10 00:00:00 2023-02-10 00:00:00 Patient Secure Msg Doctor Unassigned, [place] [facility] 1.2.840.114 350.1.13.10 4.2.7.2.686 [id number] [facility] 2023-02-04 10:45:00 2023-02-04 11:01:31 Outpatient R MORENA RIOS [facility] [id number] [facility] 2023-02-04 10:45:00 2023-02-04 11:01:31 Office Visit Morena Rios [facility] 1.2.840.114 350.1.13.10 4.2.7.2.686 [id number] [facility] 2023-02-03 00:00:00 2023-02-03 00:00:00 Orders Only Doctor Unassigned, [place] [facility] 1.2.840.114 350.1.13.10 4.2.7.2.686 [id number] [id number] [facility] 2023-01-18 10:00:00 2023-01-18 10:00:00 Outpatient R JULIEN SHELLEY [facility] [id number] [facility] 2023-01-04 00:00:00 2023-01-04 00:00:00 Patient Secure Msg Doctor Unassigned, [place] [facility] 1.2.840.114 350.1.13.10 4.2.7.2.686 [id number] [facility] 2022-12-01 00:00:00 2022-12-01 00:00:00 Telephone Gabriel Morena [facility] 1.2.840.114 350.1.13.10 4.2.7.2.686 [id number] [facility] 2022-11-30 00:00:00 2022-11-30 00:00:00 Telephone Gabriel [facility] 1.2.840.114 350.1.13.10 4.2.7.2.686 [id number] [facility] 2022-11-27 00:00:00 2022-11-27 00:00:00 Telephone Gabriel Morena [facility] 1.2840.114 350.1.13.10 4.2.7.2.686 [id number] [facility] 2022-11-26 08:30:00 2022-11-26 09:07:05 Outpatient R GABRIEL [facility] [id number] [facility] 2022-11-26 08:30:00 2022-11-26 09:07:05 Office Visit Gabriel [facility] 1.20.114 350.1.13.10 4.2.7.2.686 [id number] [facility] 2022-11-17 00:00:00 2022-11-17 00:00:00 Refill Gabriel [facility] 1.2840.114 350.1.13.10 4.2.7.2.686 [id number] [facility] 2022-11-13 00:00:00 2022-11-13 00:00:00 Refill Gabriel [facility] 1.2.840.114 350.1.13.10 4.2.7.2.686 [id number] [facility] 2022-11-06 00:00:00 2022-11-06 00:00:00 Refluis Rios [facility] 1.2.840.114 350.1.13.10 4.2.7.2.686 [id number] [facility] 2022-11-04 00:00:00 2022-11-04 00:00:00 Refill Gabriel [facility] 1.2840.114 350.1.13.10 4.2.7.2.686 [id number] [facility] 2022-11-02 13:00:00 2022-11-02 13:00:00 Outpatient MARC VERMA WENJIE [facility] [id number] [facility] 2022-10-29 08:15:00 2022-10-29 08:40:57 Outpatient R GABRIEL MORENA [facility] [id number] [facility] 2022-10-29 08:15:00 2022-10-29 08:40:57 Office Visit Gabriel [facility] 1.840.114 350.1.13.10 4.2.7.2.686 [id number] [facility] 2022-10-26 00:00:00 2022-10-26 00:00:00 Refill Gabriel [facility] 1.2840.114 350.1.13.10 4.2.7.2.686 [id number] [facility] 2022-10-21 00:00:00 2022-10-21 00:00:00 Transition of Care [facility] 1.2.840.114 350.1.13.10 4.2.7.2.686 [id number] [facility] 2022-10-12 05:40:00 2022-10-19 09:57:00 Inpatient R SERENA RIOSELA [facility] [id number] [facility] 2022-10-12 05:40:00 2022-10-19 09:57:00 Hospital Encounter Morena Rios [facility] 1.2.840.114 350.1.13.10 4.2.7.2.686 [id number] [facility] 2022-10-12 09:51:00 2022-10-12 18:29:00 [facility] 1.2.840.114 350.1.13.10 4.2.7.2.686 [id number] [facility] 2022-10-12 09:00:00 2022-10-12 16:35:00 Surgery Gabriel [facility] 1.2.840.114 350.1.13.10 4.2.7.2.686 [id number] [facility] 2022-10-12 00:00:00 2022-10-12 00:00:00 Orders Only Doctor Unassigned, [place] [facility] 1.2840.114 350.1.13.10 4.2.7.2.686 [id number] [id number] [facility] 2022-09-24 08:00:00 2022-09-24 08:30:21 Office Visit Morena Rios [facility] 1.2840.114 350.1.13.10 4.2.7.2.686 [id number] [facility] 2022-09-24 08:00:00 2022-09-24 08:30:21 Outpatient R MORENA RIOS [facility] [id number] [facility] 2022-09-24 00:00:00 2022-09-24 00:00:00 Orders Only Doctor Unassigned, [place] [facility] 1.2.840.114 350.1.13.10 4.2.7.2.686 [id number] [facility] 2022-09-14 00:00:00 2022-09-14 00:00:00 Orders Only Doctor Unassigned, [place] [facility] 1.2.840.114 350.1.13.10 4.2.7.2.686 [id number] [facility] 2022-09-11 00:00:00 2022-09-11 00:00:00 Carmen Rios Morena [facility] 1.2.840.114 350.1.13.10 4.2.7.2.686 [id number] [facility] 2022-08-11 00:00:00 2022-08-11 00:00:00 Refluis Rios Morena [facility] 1.2.840.114 350.1.13.10 4.2.7.2.686 [id number] [facility] 2022-08-07 00:00:00 2022-08-07 00:00:00 Refill Gabriel Morena [facility] 1.2.840.114 350.1.13.10 4.2.7.2.686 [id number] [facility] 2022-08-05 11:37:43 2022-08-05 23:59:00 Outpatient R MORENA RIOS [facility] [id number] [facility] 2022-08-05 11:37:43 2022-08-05 23:59:00 Hospital Encounter Morena Rios [facility] 1.2.840.114 350.1.13.10 4.2.7.2.686 [id number] [facility] 2022-08-05 00:00:00 2022-08-05 00:00:00 Patient Secure Morena Hope [facility] 1.0.114 350.1.13.10 4.2.7.2.686 [id number] [facility] 2022-08-02 00:00:00 2022-08-02 00:00:00 Telephone [facility] 1.0.114 350.1.13.10 4.2.7.2.686 [id number] [facility] 2022-07-29 00:00:00 2022-07-29 00:00:00 Orders Only Doctor Unassigned, [place] [facility] 1.840.114 350.1.13.10 4.2.7.2.686 [id number] [facility] 2022-07-27 00:00:00 2022-07-27 00:00:00 Patient Secure Morena Hope [facility] 1.0.114 350.1.13.10 4.2.7.2.686 [id number] [facility] 2022-07-25 09:12:36 2022-07-25 23:59:00 Outpatient R MORENA RIOS [facility] [id number] [facility] 2022-07-25 09:12:36 2022-07-25 23:59:00 Hospital Encounter Morena Rios [facility] 1.0.114 350.1.13.10 4.2.7.2.686 [id number] [facility] 2022-07-25 00:00:00 2022-07-25 00:00:00 Case Management Gabriel [facility] 1.20.114 350.1.13.10 4.2.7.2.686 [id number] [facility] 2022-07-23 09:45:00 2022-07-23 09:25:39 Outpatient R GABRIEL [facility] [id number] [facility] 2022-07-16 08:00:00 2022-07-16 08:00:00 Outpatient R G[facility]RIEL [facility] [id number] [facility] 2022-07-08 00:00:00 2022-07-08 00:00:00 Transition of Care [facility] 1.840.114 350.1.13.10 4.2.7.2.686 [id number] [facility] 2022-07-03 05:00:00 2022-07-07 15:03:00 Inpatient R GABRIEL [facility] PATY [id number] [facility] 2022-07-03 05:00:00 2022-07-07 15:03:00 Hospital Encounter Gabriel [facility] 1.840.114 350.1.13.10 4.2.7.2.686 [id number] [facility] 2022-07-07 00:00:00 2022-07-07 00:00:00 Refill Gabriel [facility] 1.840.114 350.1.13.10 4.2.7.2.686 [id number] [facility] 2022-07-03 06:50:00 2022-07-03 11:19:00 Surgery Gabriel [facility] 1.2840.114 350.1.13.10 4.2.7.2.686 [id number] [facility] 2022-07-03 00:00:00 2022-07-03 00:00:00 Orders Only Doctor Unassigned, [place] [facility] 1.2.840.114 350.1.13.10 4.2.7.2.686 [id number] [id number] [facility] 2022-06-26 00:00:00 2022-06-26 00:00:00 Orders Only Doctor Unassigned, [place] [facility] 1.2.840.114 350.1.13.10 4.2.7.2.686 [id number] [id number] [facility] 2022-06-18 00:00:00 2022-06-18 00:00:00 Orders Only Doctor Unassigned, [place] [facility] 1.2.840.114 350.1.13.10 4.2.7.2.686 [id number] [facility] 2022-06-11 13:00:00 2022-06-11 13:00:00 Outpatient MORENA COX [facility] [id number] [facility] 2022-05-31 05:10:00 2022-05-31 07:20:00 Emergency X SHELLIE ARNETT [facility] ERT [id number] [facility] 2022-05-31 05:10:00 2022-05-31 07:20:00 Emergency Shellie Arnett [facility] 1.2.840.114 350.1.13.10 4.2.7.2.686 [id number] [facility] 2022-05-21 08:00:00 2022-05-21 09:09:40 Outpatient MORENA COX [facility] [id number] [facility] 2022-05-10 15:22:00 2022-05-10 18:19:00 Emergency X YAMILE ANAND [facility] [id number] [facility] 2022-05-10 15:22:00 2022-05-10 18:19:00 Emergency Yamile Anand [facility] 1.0.114 350.1.13.10 4.2.7.2.686 [id number] [facility] 2022-04-09 00:00:00 2022-04-09 00:00:00 Orders Only Doctor Unassigned, [place] [facility] 1.20.114 350.1.13.10 4.2.7.2.686 [id number] [facility] 2022-04-07 10:00:00 2022-04-07 11:00:00 Nurse Visit Violette Glover, [facility] 1.114 350.1.13.10 4.2.7.2.686 [id number] [facility] 2022-04-07 10:00:00 2022-04-07 10:00:00 Outpatient MORENA COX [facility] [id number] [facility] 2022-04-07 00:00:00 2022-04-07 00:00:00 Telephone Nayeli Unger [facility] 1.114 350.1.13.10 4.2.7.2.686 [id number] [facility] 2022-03-30 15:00:00 2022-03-30 16:05:42 Outpatient R LEANN CASILLAS [facility] [id number] [facility] 2022-03-30 15:00:00 2022-03-30 16:05:42 Ancillary Visit Nayeli Unger Craig L [facility] 1..114 350.1.13.10 4.2.7.2.686 [id number] [facility] 2022-03-30 00:00:00 2022-03-30 00:00:00 Patient Secure Msg Morena Rios [facility] 1.114 350.1.13.10 4.2.7.2.686 [id number] [facility] 2022-03-27 00:00:00 2022-03-27 00:00:00 Patient Secure Msg Doctor Unassigned, [place] [facility] 1.114 350.1.13.10 4.2.7.2.686 [id number] [facility] 2022-03-24 09:00:00 2022-03-24 10:36:41 Nurse Visit Violette Glover [facility] 1.114 350.1.13.10 4.2.7.2.686 [id number] [facility] 2022-03-24 09:00:00 2022-03-24 09:00:00 Outpatient R GABRIEL MORENA [facility] [id number] [facility] 2022-03-13 13:00:00 2022-03-13 13:35:47 Outpatient R GABRIEL MORENA [facility] [id number] [facility] 2022-03-03 00:00:00 2022-03-03 00:00:00 Transition of Care Odalys George 1..114 350.1.13.10 4.2.7.2.686 [id number] [facility] 2022-02-23 12:11:00 2022-03-02 13:56:00 Inpatient R MORENA RIOS [facility] [id number] [facility] 2022-02-23 12:11:00 2022-03-02 13:56:00 Hospital Encounter Morena Rios [facility] 1.2.840.114 350.1.13.10 4.2.7.2.686 [id number] [facility] 2022-02-25 06:50:00 2022-02-25 12:26:00 Surgery Gabriel [facility] [place] 1.2.840.114 350.1.13.10 4.2.7.2.686 [id number] [facility] 2022-02-23 13:00:00 2022-02-23 17:45:00 Surgery [facility] [place] 1.2.840.114 350.1.13.10 4.2.7.2.686 [id number] [facility] 2022-02-23 00:00:00 2022-02-23 00:00:00 Orders Only Doctor Unassigned, [place] [facility] 1.2.840.114 350.1.13.10 4.2.7.2.686 [id number] [facility] 2022-02-16 00:00:00 2022-02-16 00:00:00 Telephone Morena Rios [facility] 1.2.840.114 350.1.13.10 4.2.7.2.686 [id number] [facility] 2021-12-26 13:45:00 2021-12-26 14:40:16 Outpatient R MORENA RIOS [facility] [id number] [facility] 2021-12-12 09:13:00 2021-12-12 13:50:00 Outpatient DUY PEREZ [facility] [id number] [facility] 2021-12-12 09:13:00 2021-12-12 13:50:00 Hospital Encounter Duy Woodruff [facility] 1.2.840.114 350.1.13.10 4.2.7.2.686 [id number] [facility] 2021-12-12 13:00:00 2021-12-12 13:00:00 Outpatient MORENA COX [facility] [id number] [facility] 2021-12-12 12:02:00 2021-12-12 12:45:00 Anesthesia Event DeanrafaelDeenaDuc [facility] [place] [facility] 1.840.114 350.1.13.10 4.2.7.2.686 [id number] [facility] 2021-12-12 11:29:00 2021-12-12 12:27:00 Surgery Duy Woodruff [facility] 1.0.114 350.1.13.10 4.2.7.2.686 [id number] [facility] 2021-12-12 00:00:00 2021-12-12 00:00:00 Orders Only Doctor Unassigned, [place] [facility] 1.0.114 350.1.13.10 4.2.7.2.686 [id number] [facility] 2021-12-02 00:00:00 2021-12-02 00:00:00 Prep For Surgery Duy Woodruff [facility] 1.84.114 350.1.13.10 4.2.7.2.686 [id number] [facility] 2021-11-28 11:00:00 2021-11-28 13:34:25 Outpatient R DUY WOODRUFF [facility] [id number] [facility] 2021-11-28 11:00:00 2021-11-28 13:34:25 Office Visit Duy Woodruff [facility] 1.84.114 350.1.13.10 4.2.7.2.686 [id number] [facility] Results Test Description Test Time Test Comments Results Result Co mments Source [facility] WITH [id number] 14:44:52* Test Item Value Reference Range Interpretation Comme nts WBC (test code = 6690-2) 17.49 See_Comment H [Automated message] The system which generated this result transmitted reference range: 4.30 - 11.10 10*3/?L. The reference range was not used to interpret this result as normal/abnormal. RBC (test code = 789-8) 3.64 See_Comment L [Automated message] The system which generated this result transmitted reference range: 3.93 - 5.25 10*6/?L. The reference range was not used to interpret this result as normal/abnormal. HGB (test code = 718-7) 11.5 g/dL 11.6-15.0 L HCT (test code = 4544-3) 35.3 % 35.7-45.2 L MCV (test code = 787-2) 97.0 fL 80.6-95.5 H MCH (test code = 785-6) 31.6 pg 25.9-32.8 MCHC (test code = 786-4) 32.6 g/dL 31.6-35.1 RDW-SD (test code = 47731-5) 45.5 fL 39.0-49.9 RDW-CV (test code = 788-0) 12.9 % 12.0-15.5 PLT (test code = 777-3) 230 See_Comment [Automated message] The system which generated this result transmitted reference range: 166 - 358 10*3/?L. The reference range was not used to interpret this result as normal/abnormal. MPV (test code = 91926-2) 11.7 fL 9.5-12.9 NRBC/100 WBC (test code = 8282848938) 0.0 See_Comment [Automated message] The system which generated this result transmitted reference range: 0.0 - 10.0 /100 WBCs. The reference range was not used to interpret this result as normal/abnormal. NRBC x10^3 (test code = 2618248525) See_Comment [Automated message] The system which generated this result transmitted reference range: 10*3/?L. The reference range was not used to interpret this result as normal/abnormal. GRAN MAT (NEUT) % (test code = 770-8) 87.9 % IMM GRAN % (test code = 5916774540) 0.60 % LYMPH % (test code = 736-9) 6.7 % MONO % (test code = 5905-5) 3.2 % EOS % (test code = 713-8) 1.3 % BASO % (test code = 706-2) 0.3 % GRAN MAT x10^3(ANC) (test code = 4462467499) 15.38 10*3/uL 1.88-7.09 H IMM GRAN x10^3 (test code = 7293107767) 0.10 10*3/uL 0.00-0.06 H LYMPH x10^3 (test code = 731-0) 1.18 10*3/uL 1.32-3.29 L MONO x10^3 (test code = 742-7) 0.56 10*3/uL 0.33-0.92 EOS x10^3 (test code = 711-2) 0.22 10*3/uL 0.03-0.39 BASO x10^3 (test code = 704-7) 0.05 10*3/uL 0.01-0.07 BANDS (test code = 0526353770) Increased A Lab Interpretation (test code = 46918-7) Abnormal [facility] WITH [id number] 14:44:52* Test Item Value Reference Range Interpretation Comme nts WBC (test code = 6690-2) 17.49 See_Comment H [Automated message] The system which generated this result transmitted reference range: 4.30 - 11.10 10*3/?L. The reference range was not used to interpret this result as normal/abnormal. RBC (test code = 789-8) 3.64 See_Comment L [Automated message] The system which generated this result transmitted reference range: 3.93 - 5.25 10*6/?L. The reference range was not used to interpret this result as normal/abnormal. HGB (test code = 718-7) 11.5 g/dL 11.6-15.0 L HCT (test code = 4544-3) 35.3 % 35.7-45.2 L MCV (test code = 787-2) 97.0 fL 80.6-95.5 H MCH (test code = 785-6) 31.6 pg 25.9-32.8 MCHC (test code = 786-4) 32.6 g/dL 31.6-35.1 RDW-SD (test code = 89867-2) 45.5 fL 39.0-49.9 RDW-CV (test code = 788-0) 12.9 % 12.0-15.5 PLT (test code = 777-3) 230 See_Comment [Automated message] The system which generated this result transmitted reference range: 166 - 358 10*3/?L. The reference range was not used to interpret this result as normal/abnormal. MPV (test code = 58192-8) 11.7 fL 9.5-12.9 NRBC/100 WBC (test code = 1297686007) 0.0 See_Comment [Automated message] The system which generated this result transmitted reference range: 0.0 - 10.0 /100 WBCs. The reference range was not used to interpret this result as normal/abnormal. NRBC x10^3 (test code = 0211139224) See_Comment [Automated message] The system which generated this result transmitted reference range: 10*3/?L. The reference range was not used to interpret this result as normal/abnormal. GRAN MAT (NEUT) % (test code = 770-8) 87.9 % IMM GRAN % (test code = 7552961067) 0.60 % LYMPH % (test code = 736-9) 6.7 % MONO % (test code = 5905-5) 3.2 % EOS % (test code = 713-8) 1.3 % BASO % (test code = 706-2) 0.3 % GRAN MAT x10^3(ANC) (test code = 2894357586) 15.38 10*3/uL 1.88-7.09 H IMM GRAN x10^3 (test code = 3733730429) 0.10 10*3/uL 0.00-0.06 H LYMPH x10^3 (test code = 731-0) 1.18 10*3/uL 1.32-3.29 L MONO x10^3 (test code = 742-7) 0.56 10*3/uL 0.33-0.92 EOS x10^3 (test code = 711-2) 0.22 10*3/uL 0.03-0.39 BASO x10^3 (test code = 704-7) 0.05 10*3/uL 0.01-0.07 BANDS (test code = 2909603949) Increased A Lab Interpretation (test code = 08256-3) Abnormal [facility] METABOLIC PANEL (NA, K, CL, CO2, GLUCOSE, BUN, CREATININE, CA)2022-07-04 09:59:18* Test Item Value Reference Range Interpretation Comme nts NA (test code = 1976121837) 134 mmol/L 135-145 L K (test code = 7260956528) 3.9 mmol/L 3.5-5.0 CL (test code = 5947247207) 101 mmol/L 98-108 CO2 TOTAL (test code = 1588627250) 25 mmol/L 23-31 AGAP (test code = 2699742918) 8 2-16 BUN (test code = 2081536376) 17 mg/dL 7-23 GLUCOSE (test code = 9129293115) 107 mg/dL 70-110 CREATININE (test code = 5524317906) 0.65 mg/dL 0.50-1.04 CALCIUM (test code = 2700633851) 7.7 mg/dL 8.6-10.6 L eGFR (test code = 5881828266) 100.0 mL/min/1.73m2 CATHERINE (test code = CATHERINE) Association of Glomerular Filtration Rate (GFR) and Staging of Kidney Disease* + --+ --+ ------+| GFR (mL/min/1.73 m2) ?| With Kidney Damage ?| ?Without Kidney Damage+ --------+ --------+ +| ?>90 ?| ?Stage one ?| ? Normal ?+ ---+ ---+ -------+| ?60-89 ?| ?Stage two ?| ? Decreased GFR ? + --+ --+ ------+| ?30-59 ?| ?Stage three ?| ? Stage three ? + --+ --+ ------+| ?15-29 ?| ?Stage four ? | ? Stage four ?+ ---+ ---+ -------+| ?<15 (or dialysis) ? ?| ?Stage five ? | ? Stage five ?+ ---+ ---+ -------+ *Each stage assumes the associated GFR level has been in effect for at least three months. ?Stages 1 to 5, with or without kidney disease, indicate chronic kidney disease. Notes: Determination of stages one and two (with eGFR >59mL/min/1.73 m2) requires estimation of kidney damage for at least three months as defined by structural or functional abnormalities of the kidney, manifested by either:Pathological abnormalities or Markers of kidney damage (including abnormalities in the composition of the blood or urine or abnormalities in imaging tests). Lab Interpretation (test code = 71427-4) Abnormal [facility] METABOLIC PANEL (NA, K, CL, CO2, GLUCOSE, BUN, CREATININE, CA)2022-07-04 09:59:18* Test Item Value Reference Range Interpretation Comme nts NA (test code = 7212092453) 134 mmol/L 135-145 L K (test code = 4573744687) 3.9 mmol/L 3.5-5.0 CL (test code = 1419943692) 101 mmol/L 98-108 CO2 TOTAL (test code = 4998739392) 25 mmol/L 23-31 AGAP (test code = 1127840797) 8 2-16 BUN (test code = 0803067598) 17 mg/dL 7-23 GLUCOSE (test code = 5308106186) 107 mg/dL 70-110 CREATININE (test code = 8972675853) 0.65 mg/dL 0.50-1.04 CALCIUM (test code = 8601513535) 7.7 mg/dL 8.6-10.6 L eGFR (test code = 4734927590) 100.0 mL/min/1.73m2 CATHERINE (test code = CATHERINE) Association of Glomerular Filtration Rate (GFR) and Staging of Kidney Disease* + --+ --+ ------+| GFR (mL/min/1.73 m2) ?| With Kidney Damage ?| ?Without Kidney Damage+ --------+ --------+ +| ?>90 ?| ?Stage one ?| ? Normal ?+ ---+ ---+ -------+| ?60-89 ?| ?Stage two ?| ? Decreased GFR ? + --+ --+ ------+| ?30-59 ?| ?Stage three ?| ? Stage three ? + --+ --+ ------+| ?15-29 ?| ?Stage four ? | ? Stage four ?+ ---+ ---+ -------+| ?<15 (or dialysis) ? ?| ?Stage five ? | ? Stage five ?+ ---+ ---+ -------+ *Each stage assumes the associated GFR level has been in effect for at least three months. ?Stages 1 to 5, with or without kidney disease, indicate chronic kidney disease. Notes: Determination of stages one and two (with eGFR >59mL/min/1.73 m2) requires estimation of kidney damage for at least three months as defined by structural or functional abnormalities of the kidney, manifested by either:Pathological abnormalities or Markers of kidney damage (including abnormalities in the composition of the blood or urine or abnormalities in imaging tests). Lab Interpretation (test code = 43612-5) Abnormal [facility] WITHOUT [id number] 09:46:15* Test Item Value Reference Range Interpretation Comme nts WBC (test code = 6690-2) 12.20 See_Comment H [Automated message] The system which generated this result transmitted reference range: 4.30 - 11.10 10*3/?L. The reference range was not used to interpret this result as normal/abnormal. RBC (test code = 789-8) 3.87 See_Comment L [Automated message] The system which generated this result transmitted reference range: 3.93 - 5.25 10*6/?L. The reference range was not used to interpret this result as normal/abnormal. HGB (test code = 718-7) 11.9 g/dL 11.6-15.0 HCT (test code = 4544-3) 37.3 % 35.7-45.2 MCH (test code = 785-6) 30.7 pg 25.9-32.8 MCV (test code = 787-2) 96.4 fL 80.6-95.5 H MCHC (test code = 786-4) 31.9 g/dL 31.6-35.1 PLT (test code = 777-3) 338 See_Comment [Automated message] The system which generated this result transmitted reference range: 166 - 358 10*3/?L. The reference range was not used to interpret this result as normal/abnormal. MPV (test code = 52153-2) 10.8 fL 9.5-12.9 RDW-CV (test code = 788-0) 12.6 % 12.0-15.5 RDW-SD (test code = 35991-9) 45.2 fL 39.0-49.9 NRBC x10^3 (test code = 2689162012) See_Comment [Automated messa ge] The system which generated this result transmitted reference range: 10*3/?L. The reference range was not used to interpret this result as normal/abnormal. NRBC/100 WBC (test code = 4584545227) 0.0 See_Comment [Automated messa ge] The system which generated this result transmitted reference range: 0.0 - 10.0 /100 WBCs. The reference range was not used to interpret this result as normal/abnormal. IPF % (test code = 0401643694) Lab Interpretation (test code = 10577-5) Abnormal [facility] WITHOUT [id number] 09:46:15* Test Item Value Reference Range Interpretation Comme nts WBC (test code = 6690-2) 12.20 See_Comment H [Automated message] The system which generated this result transmitted reference range: 4.30 - 11.10 10*3/?L. The reference range was not used to interpret this result as normal/abnormal. RBC (test code = 789-8) 3.87 See_Comment L [Automated message] The system which generated this result transmitted reference range: 3.93 - 5.25 10*6/?L. The reference range was not used to interpret this result as normal/abnormal. HGB (test code = 718-7) 11.9 g/dL 11.6-15.0 HCT (test code = 4544-3) 37.3 % 35.7-45.2 MCH (test code = 785-6) 30.7 pg 25.9-32.8 MCV (test code = 787-2) 96.4 fL 80.6-95.5 H MCHC (test code = 786-4) 31.9 g/dL 31.6-35.1 PLT (test code = 777-3) 338 See_Comment [Automated message] The system which generated this result transmitted reference range: 166 - 358 10*3/?L. The reference range was not used to interpret this result as normal/abnormal. MPV (test code = 47073-0) 10.8 fL 9.5-12.9 RDW-CV (test code = 788-0) 12.6 % 12.0-15.5 RDW-SD (test code = 73102-5) 45.2 fL 39.0-49.9 NRBC x10^3 (test code = 8218597633) See_Comment [Automated messa ge] The system which generated this result transmitted reference range: 10*3/?L. The reference range was not used to interpret this result as normal/abnormal. NRBC/100 WBC (test code = 5609932923) 0.0 See_Comment [Automated messa ge] The system which generated this result transmitted reference range: 0.0 - 10.0 /100 WBCs. The reference range was not used to interpret this result as normal/abnormal. IPF % (test code = 4244982748) Lab Interpretation (test code = 09188-3) Abnormal [facility] [id number] 11:15:00* Test Item Value Reference Range Interpretation Comme nts POCT NICOTINE URINE/PLASMA ( test code = 4026) Lab Interpretation (test cod e = 95704-3) Normal [facility] [id number] 11:15:00* Test Item Value Reference Range Interpretation Comme nts POCT NICOTINE URINE/PLASMA ( test code = 4026) Lab Interpretation (test cod e = 59939-2) Normal [facility] WITH [id number] 11:25:58* Test Item Value Reference Range Interpretation Comme nts WBC (test code = 6690-2) 12.81 See_Comment H [Automated messa ge] The system which generated this result transmitted reference range: 4.30 - 11.10 10*3/?L. The reference range was not used to interpret this result as normal/abnormal. RBC (test code = 789-8) 3.99 See_Comment [Automated [employer] ge] The system which generated this result transmitted reference range: 3.93 - 5.25 10*6/?L. The reference range was not used to interpret this result as normal/abnormal. HGB (test code = 718-7) 12.6 g/dL 11.6-15.0 HCT (test code = 4544-3) 36.0 % 35.7-45.2 MCV (test code = 787-2) 90.2 fL 80.6-95.5 MCH (test code = 785-6) 31.6 pg 25.9-32.8 MCHC (test code = 786-4) 35.0 g/dL 31.6-35.1 RDW-SD (test code = 67688-4) 39.1 fL 39.0-49.9 RDW-CV (test code = 788-0) 11.9 % 12.0-15.5 L PLT (test code = 777-3) 323 See_Comment [Automated [employer] ge] The system which generated this result transmitted reference range: 166 - 358 10*3/?L. The reference range was not used to interpret this result as normal/abnormal. MPV (test code = 19125-4) 11.1 fL 9.5-12.9 NRBC/100 WBC (test code = 5832576636) 0.0 See_Comment [Automated [employer] ssage] The system which generated this result transmitted reference range: 0.0 - 10.0 /100 WBCs. The reference range was not used to interpret this result as normal/abnormal. NRBC x10^3 (test code = 1449043153) See_Comment [Automated [employer] ge] The system which generated this result transmitted reference range: 10*3/?L. The reference range was not used to interpret this result as normal/abnormal. GRAN MAT (NEUT) % (test code = 770-8) 65.7 % IMM GRAN % (test code = 9502455340) 1.20 % LYMPH % (test code = 736-9) 23.5 % MONO % (test code = 5905-5) 6.9 % EOS % (test code = 713-8) 2.2 % BASO % (test code = 706-2) 0.5 % GRAN MAT x10^3(ANC) (test code = 9013127540) 8.42 10*3/uL 1.88-7.09 H IMM GRAN x10^3 (test code = 3918014786) 0.16 10*3/uL 0.00-0.06 H LYMPH x10^3 (test code = 731-0) 3.01 10*3/uL 1.32-3.29 MONO x10^3 (test code = 742-7) 0.88 10*3/uL 0.33-0.92 EOS x10^3 (test code = 711-2) 0.28 10*3/uL 0.03-0.39 BASO x10^3 (test code = 704-7) 0.06 10*3/uL 0.01-0.07 Lab Interpretation (test code = 59691-6) [id number] 11:09:19* Test Item Value Reference Range Interpretation Comme nts NA (test code = 5070813325) 133 mmol/L 135-145 L K (test code = 8626426497) 3.8 mmol/L 3.5-5.0 CL (test code = 7734259444) 98 mmol/L 98-108 CO2 TOTAL (test code = 7856854843) 26 mmol/L 23-31 AGAP (test code = 8220915808) 9 2-16 BUN (test code = 5273038273) 27 mg/dL 7-23 H GLUCOSE (test code = 5827600568) 101 mg/dL 70-110 CREATININE (test code = 4364847199) 1.08 mg/dL 0.50-1.04 H TOTAL BILI (test code = 4131185021) 0.6 mg/dL 0.1-1.1 CALCIUM (test code = 8861603017) 8.8 mg/dL 8.6-10.6 T PROTEIN (test code = 6581372547) 7.3 g/dL 6.3-8.2 ALBUMIN (test code = 7501165622) 4.0 g/dL 3.5-5.0 ALK PHOS (test code = 7065644817) 73 U/L 34-122 ALTv (test code = 1742-6) 37 U/L 5-35 H AST(SGOT) (test code = 4771586221) 33 U/L 13-40 eGFR (test code = 7874226438) 55.6 mL/min/1.73m2 CATHERINE (test code = CATHERINE) Association of Glomerular Filtration Rate (GFR) and Staging of Kidney Disease* + --+ --+ ------+| GFR (mL/min/1.73 m2) ?| With Kidney Damage ?| ?Without Kidney Damage+ --------+ --------+ +| ?>90 ?| ?Stage one ?| ? Normal ?+ ---+ ---+ -------+| ?60-89 ?| ?Stage two ?| ? Decreased GFR ? + --+ --+ ------+| ?30-59 ?| ?Stage three ?| ? Stage three ? + --+ --+ ------+| ?15-29 ?| ?Stage four ? | ? Stage four ?+ ---+ ---+ -------+| ?<15 (or dialysis) ? ?| ?Stage five ? | ? Stage five ?+ ---+ ---+ -------+ *Each stage assumes the associated GFR level has been in effect for at least three months. ?Stages 1 to 5, with or without kidney disease, indicate chronic kidney disease. Notes: Determination of stages one and two (with eGFR >59mL/min/1.73 m2) requires estimation of kidney damage for at least three months as defined by structural or functional abnormalities of the kidney, manifested by either:Pathological abnormalities or Markers of kidney damage (including abnormalities in the composition of the blood or urine or abnormalities in imaging tests). Lab Interpretation (test code = 38806-4) [id number]:32[facility]* Test Item Value Reference Range Interpretation Comme nts POCT PREG (test code = 1605) Negative On board controls acceptable with C Line (test code = 3574) Positive POCT PREG LOT # (test code = 3575) [id number] POCT PREG TEST DATE ( test code = 3576) 03/24/2023 Lab Interpretation (test cod e = 53294-5) [facility] [id number] 23:20:32* Test Item Value Reference Range Interpretation Comme nts Case Report (test code = 0199046243) Surgical Pathology ?Case: [id number] ? Authorizing Provider: ?Morena Rios MD ?Collected: ? 02/25/2022 1348 ?Ordering Location: ? ? [facility] ? ? Received: ?02/25/2022 1433 ? Center ? Pathologist: ? Jaime Chavez MD ? Specimen: ? ?LARGE INTESTINE, SIGMOID COLON, SIGMOID COLON ? Final Diagnosis (test code = 8439603453) m2uflRSyRKBom2cdNBEhiC FuZzEwMzNcZnRuYmpcdWMx IHtccnRmMVxlcGljMTAxMD StTL7uoZsegGm0eCbuWPGd teS5aRPhHMtax6mgRFF5f2 vqvzcfAXLrPOrtFk1hkXXw uQinPyUaCBQgCOn1lD36FX CshT7tzGYdFEi9RDYmlDVx phXoOqGeBORpwCLnfDG8BT YfNL8kegkkZIehTGicDEAv cfJ2OHTpxARsI1YzKKPnWT 5kryxqYWN9DZwdDRBqOAG8 GqKwEBIny3Ejsam5CoZpzU FyZFxwbGFpblxmczIwXHBh weICLdMFS3bLGhziA3pWDE 9IHEjqV5WLPBOQJCPEXVWN F2DGTKiTNoegEPMdzsNyZH ZfTLIKZJiTJT5CZZ9KJLRP HJ5NWPHxBF07QBAQZCdVEy rcGDaIRUcfLc9aJRzTSZ2M XMZDL6mAG1gNNYYHAQ7FRW LfxEUcIGMjLCOuBTJBB1FR FXlOBsBFXEMRMX4UMCEFDC JMRVxwYXJccGFyIEJpbGxp CEQHnTcyVFupOT3qcFTnVG ibdwOly5UkEOzjfjVMiHEf SIUgVU0XPPXcGjYbMaSaMc AgNToyMCBQTVxwYXJccGFy VRpxMKH4h5fljTAcAMOzxT DhVfHxXOLiFSFak8jbHNQy bGFuZzEwMzNcZnRuYmpcdW ZzJUZbDpEuq9rsj887jNFu o1itIUDhGxG8zLGpANLtnW bpfvw2uYkpYlNmWRLha4sq cyBcZmNoYXJzZXQwIEFyaW XkI521MYQkZKqhk9izf1Gm BMEijMFqj5C9CISUJRcjPf CnS652h2eex5oviiOeiZF6 TDRpFNY7ZVhqqdZmkzB5RQ ccsMCsNhK6WCxvhwNzNCjp nvCwgsSpZhn7EUNjS408GT A3bPcjo2rpDTG2OPCsBUCi VevsPy9sfOTlK150VHNcGU LITXQnzFy0AZJrucYcrvOc jCHBy986S580h9anWNZhmi SunQpPfqnqy4bzE458IZKc cGVydzEyMjQwXHBhcGVyaD P5TFHlJU6cmlniINryTZoy OQOrepH2AROjjVWoJ4ByUY XzRB0ndwqhYYD4YBamKEFj JOD9JbWbPPWfa9Jtyns1Dz Zywn3kpj95IBW7v1EwcBin HQX2ISJ3ScWmYs9evFVxSE YlZW0dAmMcoCLiMDRnif97 nZwgNZjhmgQujG7bXdXjHY LshODmFHQpJI3guQVhQDGg cS1gbsaoBUKxIfXvgfnfRD TyvYdajsIwBx2dqMosXZY9 INsfQ6cjnK6kGlU7HPamQ0 tmgD4pGRe4JQvhsHD3QJKw xT3mYJ5qkzyjp7ljDOwwMF puFBNhoxD0vzH7IKWmkAHv D3DstY4bQKDuGW8pdhcou1 ejTJB3KSbsUWZrLSR9ObMm MRIbl0Zdfxl9AcGbp8HmaN ZzFZudN72xo173KMAfcqFl Z0qblPIbyfdjuIAmleeyIH txpjP6OFDfNXLxAFwgRYVx XGZzMjBcbGFuZzEwMzNcaG ljaFxmMVxkYmNoXGYxXGxv H9wkIpEdX7OsGPPbRsSygA XfPUuimCO2ISKvKYCqn65c eAr7MEKktumhu9MlSGGlaK CgzQZxjS8paaVtl0zaMERg ULQwAMTkN1YtRKQ6aBHjWP PzlSNbdWI6DE1qhfAjJH3f ZGUgYnkgcmVzaWRlbnRzLC JkYWewk2ciPG4lRKZecYgi gM8rbOK0LFZfz5jsdNEvoV Lsr9juh2LvhiJyVFgrMQJh LXdzZBEyYZZwLL2cARYmlD OheaRct5I4ZbtgrYDrfjna FfqbyfJ9DIzlyvksOQFnEV xbK7woJyKhZCLyhOtsWgsu x4AhCYIzPKFhIeviwWCrkY 0= Clinical Information (test code = 9434389677) Rectal prolapse [K62.3] Gross Description (test code = 0603601637) x6bhqMRdDQAccJJKLLWcXN EjWJ5cjBkwmTn4xHuwYYQg llJ5vTToEVrea5xaIVI0q6 llbiANClxkZWZmMVxwYXBl bttlPkC9ABnhDEHdkhlqJK s1BWqdKYGztQX1HFXqaTGv R0ElCGTpGZ2eycg4OCX4ZA eiNIXmEbD6LQWiTyHbFlfo LEz4FCQwubH7Let0LEFvFM GoqOAof3W7IUtzxvroSGWo gCPcX085RTtzq3TwbQPuMH pccGFyZCANCntcKlxlcGlj b5VijZNiABniBBTjAXOrAX monakfIUh7IYJlCSppjSDw ED4gmZkuFmypoMvic1QsxA BcXGlkIDUxMDAyIFxcZGIg KA8JHdUcHUJqUMYvCBxlBN g7LCk7GA5GKoUzJXFnFKMc DCF6WDGiJBo6TSqoCZ6NCF Z6KNRzQTG3GSvtNAAmEBJe SRg8CEOeDJjyJHDhjQOtOM fuKaGrOILwSIuoqYHqGA6o fVxwbGFpblxmczIwIFNQRU CSRSJPTAAvoKJnHE6COMUl KJqtFSGamKPWXDZ9LR1lGV ANClxsdHJwYXJcbGluMFxy jZ1mVR2ZPPw1foRgXWEbIz ZdW7PbD8gtHI9cGTCcivQw LAMgyNTeFCSoyjRpv6YaBR xpbiBsYWJlbGVkIHdpdGgg dGhlIHBhdGllbnQncyBuYW 7aUSJKXHEetZ7tMGMfLsUo vBeil8sqATToqC9nFbmuAG 4oAIOmopIkz4UvOI3sOMXg CWTkx1SmYA12ZTZeg0GclA XssKUbHdCgUBAwMVMpm0og bCAoMTQuNiBjbSBpbiBsZW 9hvCejiOBfZeWiH85vxN5t GYwqdQO5KPKpGXidpIgyVC 4co4EtyqYoeh12qJ0rmHFk PHXnQ1Hzh45xhUIgA6bnXA PyGIMuDOJ4SUYyQGFvFTeg bAQdDMOzj8KvuJcplkYfWV BfmF2bGAURgUZ3gJXhSOgp mWKhEC6qondrhyI4zRVoQL PkmdIqc86acGKefV9uLBJw ltAfIBgxhxOyxSVlHT8oc5 7lBZN8TXxnvFNfC1jeHaWV rIEcu1Kky3AkSFlkSFLpcf 4ywX9nNIWrMEUijSanJO32 bMfex25oh1TtGLLqQDMfc0 LunUr8CMkxnR3mmmbcN2uh VA2uEJJuiZsuACGhy9QnpJ VdobHzGOXNuHQfn8QyD3ih EI3mxREux6UmyyNgREGqGP IbvfHmyAQeNN3lvjJkbxHd iA7axfX3uYSlDPRfal9trZ 0wNE10R67vFWI7lDkifPPa WDCziNVlQSq8cZAeEVYvvY YlNcPmGLnjsgRdmXBan85s MRLpwwExrGkxlNv2kC4yRP 1qCKKbmOguuutujIVibD0t kzmwe0YzmAGiSf6nPDLkl7 2xFVQfYFHemz1lf7v2RCfe GO18kJWxYMOoIXRVKQGqWG JasjNgnXg4EPIaMKO7cN0r mfFmdhLbb0NxoRk5bIEzHO azKREaWMO3AqfkLCMmSUtw yIIyQC4EK7RnbYeyqoHbb2 RlOlxwYXIgDQpBMTogUHJv uFcwTYbropVhPHI0wL9jGR 2imtxulvviZL1xKpPtTCgc LT58cUTlyFaobVAfUG2BOY X4DHVwx3DzpZYvGPQhS3Kg q47pbGMmQ1aoBYXlgeReDT NlLCBlbnRpcmVseVxwYXIg NYrJHntmWIn2HHS9cFI4bG VtLCByZXByZXNlbnRhdGl2 ZVxwYXIgDQpBNDogUmVwcm YsHO00VESlcaYbEsXhwP63 dGizf95yw4Bsh9WubWbpgr WqtPVjBV8MBLK7FAL5mIcf sEtmS5nrXSFzIQZcS6Jgc6 0cx8u0nAVkRV5kupUjCDkc RzXhJSXsu8PdTTFmnIUlc5 UxyWX1bHMjKPVsfyGKAsrm CYAuKZoHXTB6NYRlbsYhwX thLCBQQSAoQVNDUCkNClxl xZvjSyDkdPZxXjWzfxX7ZR KpdZLmQFY4UC0hNMPbakmj RFYeNMCoXNB9OUvydV06jU QwXGZzMTZccGFyfVxwbGFp rfSZJfssnE8iXvSvm5epnU r5NYAOCwuyqQGolvwxceB1 ODVvx9hkbYrag6JosVYbDL 3hlLzcrW1mZrBfGrGTCl7= Disclaimer (test code = 9017903114) l3xdnZWlRXNlw8gxHHBldY FuZzEwMzNcZnRuYmpcdWMx SYcvdlKgFCevt5OiQ1JwTy AwMFxhbnNpXGRlZmxhbmcx KOHhQPE6jeKjQKMbDIejCP YnBEkfOz7jfGUxxCpxZzEz WBAnh7fwlkOKZNweZlOkK2 69QXIuQNgyt4xww6FcPMOk zCMxs4P8SDIDewlufEf1uV swD97tm6W9OxigZ7boFMLk HQZyD8NuLD8rFADpAar5GG A7PTX8KLWwZTHrU0KeXN7a JYKlxEYmBJe6e4wvnWybKK QhCIU9v5vgWKxpnfHbPX1v jy8ofMq6b0ckxtElSDBeDU ZuqXFMOYAwE8SiqIvgJg1f pXc0iDzpAzigLYO7Moa0QN 6hya74ijc3hGroHGOklrrn DsA8CIocHEInjmlkBNz9SI tcREEsuZO7WZBxsFObU6Uf LMRvMK5onzb9QTJ2HUlgYJ WbRjH9XNKzlFUdBUIrmZik PJysr877BPE9WbSxBF3oY7 Tpf0F7cG4icMHkCJRkwEQb HvKeXVEkal1cuDBvSIajj7 XsJMT9kwX3jISlzIBqJNNl TW11Gfont4ByXxhbg4ZfV3 9oiQU2OMoky3ydNJ2uKaL5 kxSsLOxzz1ctvZ9kPoN6BW kgRT6bIM4lZYFguJ3blilo XHBnYnJkcmhlYWRccGdicm NpXb4azNazAMU4TFxtO8bb uZ1uMkO6SSsnA4swlV8qPJ z7EOadtLG5THIzgL8sOP1t fxwlv5inQMfdOCwuUWImnl F3gyZ1OJMktFHlI1BfhM9a DMNcLL8inwkvi6qfTPR3ZF jkAOYtANI0XmSvSIGjj4Wu pcc4AgNxq6LxbLLvBQppI1 3se495WVGlqmCjG3yzzHHm ofpqnUMsnvoxOGfikyI8MA FsynObu5EuJOPrAAZ7GHsh OMifvWQdLOQkfCrla3aaG9 RscGFyXHBsYWluXGYxXGZz MjBcbGFuZzEwMzNcaGljaF gzWFxrOnYqEWAqQEkaC3mo TpQmX8JhVBWxLdSieKInW3 ggVGhpcyByZXBvcnQgbWF5 MHzbK5j3GLNuugXzuZi6rf PwPmMxSXMcYLU0FKuagSFt IDRao0OqqwttkEIhWq9cuO LvZIAzfV1wBJRzSJJkWPmi ZN5ieQo3YLKNpSRlqXDbSu MIHLYbSU89bzDoQAYTtvcj b9H5FPyyOXPih2NqmMUjV1 zoa7NkCVMyj05nJN1vx3M6 n2paTSC4ZV5im2FoGVAbyY SsjXZkHSXvc8Tjexinf7Eq VRLagsKfy3QfDBJksoAgbU FvITDlbzWack4hsjRaBXDn OVYhY8KyhvarbBepyvZoFY Cnxn0vldNuXWA8POFXRXZx EYQep1EgnO4wmPCSBYB9eF Aamf2yeeSTiUGpISQrwi31 ENNiGJ9cM9yzDECzJAMjuk SjjCRxv3MdCFZzhTA3rHMd JM9LVlYXo37xCSBnKVYVfi KlLQIxdLmprAL0vsD7mE5t IChGREEpLlx+IFRoZSBGRE PuCM1nlpMni5KnxuAzpGds PRTipNNhn8VyvWCps8QsxT les8CkrGDziAXhKZ8yOIBz clxwYXIgVVRNQiBMYWJvcm I2f3QnQCPtRYUlLHX9yIqv yjx9JBFgeO0kVJRdL7zsig grHIvbVWOtp0WmxP1pvSUX wIMgx7RgvCNhjTGEzRXkGD 0hoeCcFCnCIVvLNHG3kuCn TNRwt7QyXHwxT8hbR68wqL quhRm3hYP1VQO9hM2yGwv+ IFxwYXJccGFyIEFwcHJvcH YfHSKueEusruHqF6WpvjAj sJ1vcZCrgoNpXD2jBL7iC3 N1bOEoBORbifEha9qwAOit dmUgYmVlbiByZXZpZXdlZC Ojq9YqHOzjPWW4EOfkqmEn bmNsdWRpbmcgSCZFLCBTcG GnhFBbRUK4VFygsdWjxkLf MQ0qtN0afXnajC9seZBkmY V9pbtoRNFjNQRieZseCXPs LM3ksXWgDGLrplUNaMdwkY YflF2rZ3ZyDAGkVRXatl9a OAJdkT2dCIser0ZfgegbKN GiMORqHSJdunWnid9jSHCj dJQFSJ7YIGtlhMXdf7Npxm AdW2fTGSM4XPZyIsImNivr ZCCqqAHtnUYrEMXlnd51LI WmrR2vqYzpRISwtQ6npE2u aEjstP4vIdUrKuNbRCahJA 2qHVYgJ6gkoBDaKRIrMSNh O5gfXlVhdP5yuPtbUCnvRr JlJzYtUXgxUYV1cZ== Embedded Images (test code = 7302069594) [facility] GLUCOSE (AUTOMATED)2022-02-27 17:55:47* Test Item Value Reference Range Interpretation Comme nts POCT GLU (test code = 6399576857) 114 mg/dL 70-110 H Lab Interpretation (test cod e = 29689-3) Abnormal [facility] GLUCOSE (AUTOMATED)2022-02-27 13:16:20* Test Item Value Reference Range Interpretation Comme nts POCT GLU (test code = 7670572336) 118 mg/dL 70-110 H Lab Interpretation (test cod e = 13098-7) Abnormal [facility] GLUCOSE (AUTOMATED)2022-02-27 02:35:53* Test Item Value Reference Range Interpretation Comme nts POCT GLU (test code = 8029607538) 136 mg/dL 70-110 H Lab Interpretation (test cod e = 19396-5) Abnormal [facility] GLUCOSE (AUTOMATED)2022-02-26 22:38:31* Test Item Value Reference Range Interpretation Comme nts POCT GLU (test code = 0951402016) 103 mg/dL 70-110 Lab Interpretation (test cod e = 10347-1) Normal [facility] GLUCOSE (AUTOMATED)2022-02-26 18:26:44* Test Item Value Reference Range Interpretation Comme nts POCT GLU (test code = 6163061430) 129 mg/dL 70-110 H Lab Interpretation (test cod e = 05695-3) Abnormal [facility] GLUCOSE (AUTOMATED)2022-02-26 18:26:44* Test Item Value Reference Range Interpretation Comme nts POCT GLU (test code = 5988453511) 129 mg/dL 70-110 H Lab Interpretation (test cod e = 24463-5) Abnormal [facility] GLUCOSE (AUTOMATED)2022-02-26 13:44:15* Test Item Value Reference Range Interpretation Comme nts POCT GLU (test code = 3776112066) 113 mg/dL 70-110 H Lab Interpretation (test cod e = 23961-8) Abnormal [facility] GLUCOSE (AUTOMATED)2022-02-26 13:44:15* Test Item Value Reference Range Interpretation Comme nts POCT GLU (test code = 5386696737) 113 mg/dL 70-110 H Lab Interpretation (test cod e = 76183-8) Abnormal [facility] GLUCOSE (AUTOMATED)2022-02-26 02:52:05* Test Item Value Reference Range Interpretation Comme nts POCT GLU (test code = 1412047164) 141 mg/dL 70-110 H Lab Interpretation (test cod e = 53320-6) Abnormal [facility] GLUCOSE (AUTOMATED)2022-02-26 02:52:05* Test Item Value Reference Range Interpretation Comme nts POCT GLU (test code = 9038634921) 141 mg/dL 70-110 H Lab Interpretation (test cod e = 27468-5) Abnormal [facility] GLUCOSE (AUTOMATED)2022-02-25 23:16:28* Test Item Value Reference Range Interpretation Comme nts POCT GLU (test code = 3418298673) 123 mg/dL 70-110 H Notified Provide r Lab Interpretation (test code = 18135-6) Abnormal [facility] GLUCOSE (AUTOMATED)2022-02-25 23:16:28* Test Item Value Reference Range Interpretation Comme nts POCT GLU (test code = 9440465473) 123 mg/dL 70-110 H Notified Provide r Lab Interpretation (test code = 00199-3) Abnormal [facility] GLUCOSE (AUTOMATED)2022-02-25 03:06:25* Test Item Value Reference Range Interpretation Comme nts POCT GLU (test code = 6876082083) 114 mg/dL 70-110 H Lab Interpretation (test cod e = 48881-5) Abnormal [facility] GLUCOSE (AUTOMATED)2022-02-25 03:06:25* Test Item Value Reference Range Interpretation Comme nts POCT GLU (test code = 1905717883) 114 mg/dL 70-110 H Lab Interpretation (test cod e = 34865-6) Abnormal [facility] 00:49:09* Test Item Value Reference Range Interpretation Comme nts FREE T3 (test code = 2753006036) 3.08 pg/mL 2.77-5.27 Lab Interpretation (test cod e = 32011-8) Normal [facility] 00:49:09* Test Item Value Reference Range Interpretation Comme nts FREE T4 (test code = 8910933812) See_Comment [Automated messa ge] The system which generated this result transmitted reference range: 0.78 - 2.20 ng/dL:. The reference range was not used to interpret this result as normal/abnormal. Lab Interpretation (test code = 83259-5) Normal [facility] 00:49:09* Test Item Value Reference Range Interpretation Comme nts FREE T3 (test code = 4064560472) 3.08 pg/mL 2.77-5.27 Lab Interpretation (test cod e = 40327-2) Normal [facility] 00:49:09* Test Item Value Reference Range Interpretation Comme nts FREE T4 (test code = 4512785082) See_Comment [Automated [place]ash[place] ge] The system which generated this result transmitted reference range: 0.78 - 2.20 ng/dL:. The reference range was not used to interpret this result as normal/abnormal. Lab Interpretation (test code = 57310-6) Normal [facility] GLUCOSE (AUTOMATED)2022-02-24 22:38:19* Test Item Value Reference Range Interpretation Comme nts POCT GLU (test code = 2081368983) 93 mg/dL 70-110 Notified Provide r Lab Interpretation (test code = 27397-9) Normal [facility] GLUCOSE (AUTOMATED)2022-02-24 22:38:19* Test Item Value Reference Range Interpretation Comme nts POCT GLU (test code = 5802793329) 93 mg/dL 70-110 Notified Provide r Lab Interpretation (test code = 17125-6) [facility] [id number] 19:23:41 * Test Item Value Reference Range Interpretation Comme nts TSH (test code = 4880152973) See_Comment Biotin has been reported to cause a negative bias, interpret results relative to patient's use of biotin. [Automated message] The system which generated this result transmitted reference range: 0.45 - 4.70 mIU/L. The reference range was not used to interpret this result as normal/abnormal. Lab Interpretation (test code = 15567-2) [facility] [id number] 19:23:41 * Test Item Value Reference Range Interpretation Comme nts TSH (test code = 1249203675) See_Comment Biotin has been reported to cause a negative bias, interpret results relative to patient's use of biotin. [Automated message] The system which generated this result transmitted reference range: 0.45 - 4.70 mIU/L. The reference range was not used to interpret this result as normal/abnormal. Lab Interpretation (test code = 27973-6) [facility] [id number] 19:23:41 * Test Item Value Reference Range Interpretation Comme nts TSH (test code = 7692216124) See_Comment Biotin has been reported to cause a negative bias, interpret results relative to patient's use of biotin. [Automated message] The system which generated this result transmitted reference range: 0.45 - 4.70 mIU/L. The reference range was not used to interpret this result as normal/abnormal. Lab Interpretation (test code = 37215-1) Normal [facility] GLUCOSE (AUTOMATED)2022-02-24 17:56:38* Test Item Value Reference Range Interpretation Comme nts POCT GLU (test code = 8607998307) 94 mg/dL 70-110 Notified Provide r Lab Interpretation (test code = 78361-0) Normal [facility] GLUCOSE (AUTOMATED)2022-02-24 17:56:38* Test Item Value Reference Range Interpretation Comme nts POCT GLU (test code = 9594980562) 94 mg/dL 70-110 Notified Provide r Lab Interpretation (test code = 11015-8) Normal [facility] GLUCOSE (AUTOMATED)2022-02-24 17:56:38* Test Item Value Reference Range Interpretation Comme nts POCT GLU (test code = 2520765666) 94 mg/dL 70-110 Notified Provide r Lab Interpretation (test code = 86547-8) Normal [facility] GLUCOSE (AUTOMATED)2022-02-24 15:10:50* Test Item Value Reference Range Interpretation Comme nts POCT GLU (test code = 3919932551) 111 mg/dL 70-110 H Lab Interpretation (test cod e = 60997-6) Abnormal [facility] GLUCOSE (AUTOMATED)2022-02-24 15:10:50* Test Item Value Reference Range Interpretation Comme nts POCT GLU (test code = 1953052349) 111 mg/dL 70-110 H Lab Interpretation (test cod e = 60165-7) Abnormal [facility] GLUCOSE (AUTOMATED)2022-02-24 15:10:50* Test Item Value Reference Range Interpretation Comme nts POCT GLU (test code = 5987528923) 111 mg/dL 70-110 H Lab Interpretation (test cod e = 40568-8) Abnormal [facility] GLUCOSE (AUTOMATED)2022-02-24 04:24:52* Test Item Value Reference Range Interpretation Comme nts POCT GLU (test code = 1540190590) 127 mg/dL 70-110 H Lab Interpretation (test cod e = 28592-4) Abnormal [facility] GLUCOSE (AUTOMATED)2022-02-24 04:24:52* Test Item Value Reference Range Interpretation Comme [facility] POCT GLU (test code = 3367773908) 127 mg/dL 70-110 H Lab Interpretation (test cod e = 13721-9) Abnormal [facility] GLUCOSE (AUTOMATED)2022-02-24 04:24:52* Test Item Value Reference Range Interpretation Comme [facility] POCT GLU (test code = 4567719298) 127 mg/dL 70-110 H Lab Interpretation (test cod e = 28374-5) Abnormal [facility] METABOLIC PANEL (NA, K, CL, CO2, GLUCOSE, BUN, CREATININE, CA)2022-02-24 03:47:51* Test Item Value Reference Range Interpretation Comme [facility] NA (test code = 2327892669) 137 mmol/L 135-145 K (test code = 4695477437) 4.2 mmol/L 3.5-5.0 CL (test code = 3625006631) 107 mmol/L 98-108 CO2 TOTAL (test code = 5173771909) 23 mmol/L 23-31 AGAP (test code = 5781444418) 2-16 BUN (test code = 4548226672) 7 mg/dL 7-23 GLUCOSE (test code = 3426672731) 135 mg/dL 70-110 H CREATININE (test code = 3391122447) 0.79 mg/dL 0.50-1.04 CALCIUM (test code = 6345768613) 8.1 mg/dL 8.6-10.6 L eGFR (test code = 4184244647) mL/min/1.73m2 CATHERINE (test code = CATHERINE) Association of Glomerular Filtration Rate (GFR) and Staging of Kidney Disease* + --+ --+ ------+| GFR (mL/min/1.73 m2) ?| With Kidney Damage ?| ?Without Kidney Damage+ --------+ --------+ +| ?>90 ?| ?Stage one ?| ? Normal ?+ ---+ ---+ -------+| ?60-89 ?| ?Stage two ?| ? Decreased GFR ? + --+ --+ ------+| ?30-59 ?| ?Stage three ?| ? Stage three ? + --+ --+ ------+| ?15-29 ?| ?Stage four ? | ? Stage four ?+ ---+ ---+ -------+| ?<15 (or dialysis) ? ?| ?Stage five ? | ? Stage five ?+ ---+ ---+ -------+ *Each stage assumes the associated GFR level has been in effect for at least three months. ?Stages 1 to 5, with or without kidney disease, indicate chronic kidney disease. Notes: Determination of stages one and two (with eGFR >59mL/min/1.73 m2) requires estimation of kidney damage for at least three months as defined by structural or functional abnormalities of the kidney, manifested by either:Pathological abnormalities or Markers of kidney damage (including abnormalities in the composition of the blood or urine or abnormalities in imaging tests). Lab Interpretation (test code = 87871-5) Abnormal [facility] METABOLIC PANEL (NA, K, CL, CO2, GLUCOSE, BUN, CREATININE, CA)2022-02-24 03:47:51* Test Item Value Reference Range Interpretation Comme nts NA (test code = 5090780467) 137 mmol/L 135-145 K (test code = 7260450532) 4.2 mmol/L 3.5-5.0 CL (test code = 8538646469) 107 mmol/L 98-108 CO2 TOTAL (test code = 6833841472) 23 mmol/L 23-31 AGAP (test code = 2646956798) 2-16 BUN (test code = 9767472560) 7 mg/dL 7-23 GLUCOSE (test code = 7721828547) 135 mg/dL 70-110 H CREATININE (test code = 3861311226) 0.79 mg/dL 0.50-1.04 CALCIUM (test code = 8167137954) 8.1 mg/dL 8.6-10.6 L eGFR (test code = 5243953808) mL/min/1.73m2 CATHERINE (test code = CATHERINE) Association of Glomerular Filtration Rate (GFR) and Staging of Kidney Disease* + --+ --+ ------+| GFR (mL/min/1.73 m2) ?| With Kidney Damage ?| ?Without Kidney Damage+ --------+ --------+ +| ?>90 ?| ?Stage one ?| ? Normal ?+ ---+ ---+ -------+| ?60-89 ?| ?Stage two ?| ? Decreased GFR ? + --+ --+ ------+| ?30-59 ?| ?Stage three ?| ? Stage three ? + --+ --+ ------+| ?15-29 ?| ?Stage four ? | ? Stage four ?+ ---+ ---+ -------+| ?<15 (or dialysis) ? ?| ?Stage five ? | ? Stage five ?+ ---+ ---+ -------+ *Each stage assumes the associated GFR level has been in effect for at least three months. ?Stages 1 to 5, with or without kidney disease, indicate chronic kidney disease. Notes: Determination of stages one and two (with eGFR >59mL/min/1.73 m2) requires estimation of kidney damage for at least three months as defined by structural or functional abnormalities of the kidney, manifested by either:Pathological abnormalities or Markers of kidney damage (including abnormalities in the composition of the blood or urine or abnormalities in imaging tests). Lab Interpretation (test code = 18451-6) Abnormal [facility] METABOLIC PANEL (NA, K, CL, CO2, GLUCOSE, BUN, CREATININE, CA)2022-02-24 03:47:51* Test Item Value Reference Range Interpretation Comme nts NA (test code = 2493139802) 137 mmol/L 135-145 K (test code = 3134122193) 4.2 mmol/L 3.5-5.0 CL (test code = 3555946769) 107 mmol/L 98-108 CO2 TOTAL (test code = 9324245861) 23 mmol/L 23-31 AGAP (test code = 8556349998) 2-16 BUN (test code = 6080194285) 7 mg/dL 7-23 GLUCOSE (test code = 1262223895) 135 mg/dL 70-110 H CREATININE (test code = 8344231261) 0.79 mg/dL 0.50-1.04 CALCIUM (test code = 6819612751) 8.1 mg/dL 8.6-10.6 L eGFR (test code = 1820802924) mL/min/1.73m2 CATHERINE (test code = CATHERINE) Association of Glomerular Filtration Rate (GFR) and Staging of Kidney Disease* + --+ --+ ------+| GFR (mL/min/1.73 m2) ?| With Kidney Damage ?| ?Without Kidney Damage+ --------+ --------+ +| ?>90 ?| ?Stage one ?| ? Normal ?+ ---+ ---+ -------+| ?60-89 ?| ?Stage two ?| ? Decreased GFR ? + --+ --+ ------+| ?30-59 ?| ?Stage three ?| ? Stage three ? + --+ --+ ------+| ?15-29 ?| ?Stage four ? | ? Stage four ?+ ---+ ---+ -------+| ?<15 (or dialysis) ? ?| ?Stage five ? | ? Stage five ?+ ---+ ---+ -------+ *Each stage assumes the associated GFR level has been in effect for at least three months. ?Stages 1 to 5, with or without kidney disease, indicate chronic kidney disease. Notes: Determination of stages one and two (with eGFR >59mL/min/1.73 m2) requires estimation of kidney damage for at least three months as defined by structural or functional abnormalities of the kidney, manifested by either:Pathological abnormalities or Markers of kidney damage (including abnormalities in the composition of the blood or urine or abnormalities in imaging tests). Lab Interpretation (test code = 42576-1) Abnormal [facility] [id number] 21:14:00* Test Item Value Reference Range Interpretation Comme nts POCT NICOTINE URINE/PLASMA ( test code = 4026) Positive - Negative [facility] [id number] 21:14:00* Test Item Value Reference Range Interpretation Comme nts POCT NICOTINE URINE/PLASMA ( test code = 4026) Positive - Negative [facility] [id number] 21:14:00* Test Item Value Reference Range Interpretation Comme nts POCT NICOTINE URINE/PLASMA ( test code = 4026) Positive - [facility]2022-02-23 20:49:44* Test Item Value Reference Range Interpretation Comme nts ABO & RH (test code = 20) O Positive Performed at [facility] Laboratory Services - [facility] Blood [place] [address]Toll Free: [phone] No. [id number] [facility] Confirmation (Lab Only)2022-02-23 20:49:44* Test Item Value Reference Range Interpretation Comme nts ABO & RH (test code = 20) O Positive Performed at [facility] Laboratory Services - [place] [address]Toll Free: [phone] No. [id number] [facility] Confirmation (Lab Only)2022-02-23 20:49:44* Test Item Value Reference Range Interpretation Comme nts ABO & RH (test code = 20) O Positive Performed at [facility] Laboratory [facility] - [facility] Blood [place] [address]Toll Free: [phone] No. [id number] [facility] - This is a pre-surgical type and screen. ONCE [id number] 19:49:54* Test Item Value Reference Range Interpretation Comme nts ABO & RH (test code = 20) O Positive Performed at [facility] Laboratory Services - [facility] Blood [address] Free: [phone] No. [id number] IAT (test code = 1185) Negative Performed at [facility] Laboratory Services - [facility] Blood [place] [address]Toll Free: [phone] No. [id number] [facility] This is a pre-surgical type and screen. ONCE [id number] 19:49:54* Test Item Value Reference Range Interpretation Comme nts ABO & RH (test code = 20) O Positive Performed at [facility] Laboratory Services - [facility] Blood [place] [address]Toll Free: [phone] No. [id number] IAT (test code = 1185) Negative Performed at [facility] Laboratory Services - [facility] Blood [address] Free: [phone] No. [id number] [facility] - This is a pre-surgical type and screen. ONCE [id number] 19:49:54* Test Item Value Reference Range Interpretation Comme [facility] ABO & RH (test code = 20) O Positive Performed at [facility] Laboratory Services - [facility] Blood [address] Free: [phone] No. [id number] IAT (test code = 1185) Negative Performed at [facility] Laboratory Services - [facility] Blood [address] Free: [phone] No. [id number] [facility] [id number] 06:57:19* Test Item Value Reference Range Interpretation Comme nts HEMOGLOBIN A1c (test code = 63347) 5.9 % 4.2-5.6 H UNLESS OTHERWISE INDICATED, ALL TESTING PERFORMED [facility] [address] [place] [address] TRAFFIC ASSISTANT: VALENTIN LION M.D. CLIA NUMBER [id number] [facility] [place]. [id number] CBC W/AUTO DIFF WITH [id number] 06:22:08* Test Item Value Reference Range Interpretation Comme nts WBC (test code = 1001) 13.0 K/UL 3.5-11.0 H RBC (test code = 1002) 4.99 M/UL 3.80-5.40 HEMOGLOBIN (test code = 1003) 15.2 G/DL 11.5-15.5 HEMATOCRIT (test code = 1004) 45.9 % 34.0-45.0 H MCV (test code = 1005) 92.0 fL 80.0-99.0 MCH (test code = 1006) 30.5 PG 25.0-33.0 MCHC (test code = 1007) 33.1 G/DL 31.0-36.0 RDW (test code = 1038) 12.4 % 11.5-15.0 NEUTROPHILS (test code = 1008) 72.3 % LYMPHOCYTES (test code = 1010) 21.4 % MONOCYTES (test code = 1011) 4.7 % EOSINOPHILS (test code = 1012) 0.6 % BASOPHILS (test code = 1013) 0.5 % IMMATURE GRANULOCYTES (test code = 1036) 0.5 % NUCLEATED RBCS (test code = 1065) 0.0 /100 WBC'S See_Comment [Automated messa ge] The system which generated this result transmitted reference range: 0.0. The reference range was not used to interpret this result as normal/abnormal. PLATELET COUNT (test code = 1015) 346 K/UL 130-400 ABSOLUTE NEUTROPHILS (test code = 1066) 9.39 K/UL 1.50-7.50 H ABSOLUTE LYMPHOCYTES (test code = 1067) 2.78 K/UL 1.00-4.00 ABSOLUTE MONOCYTES (test code = 1068) 0.61 K/UL 0.20-1.00 ABSOLUTE EOSINOPHILS (test code = 1040) 0.08 K/UL 0.00-0.50 ABSOLUTE BASOPHILS (test code = 1069) 0.06 K/UL 0.00-0.20 ABS IMMATURE GRANULOCYTES (test code = 1020) 0.06 K/UL 0.00-0.10 ABS NUCLEATED RBCS (test code = 67330) 0.00 K/UL 0.00-0.11 COMPREHENSIVE METABOLIC [id number] 04:34:32* Test Item Value Reference Range Interpretation Comme nts GLUCOSE (test code = 2217) 112 MG/DL 70-99 H BUN (test code = 2207) 14 MG/DL 6-20 CREATININE (test code = 2214) 0.77 MG/DL 0.60-1.30 eGFR (2020 CKD-EPI) (test code = 66702) 99 ML/MIN/1.73 >60 CALC BUN/CREAT (test code = 2235) 18 RATIO 6-28 SODIUM (test code = 223) 139 MEQ/L 133-146 POTASSIUM (test code = 8) 3.9 MEQ/L 3.5-5.4 CHLORIDE (test code = 2215) 104 MEQ/L 95-107 CARBON DIOXIDE (test code = 2205) 22 MEQ/L 19-31 CALCIUM (test code = 2209) 8.9 MG/DL 8.5-10.5 PROTEIN, TOTAL (test code = 222) 7.4 G/DL 6.1-8.3 ALBUMIN (test code = 2201) 4.4 G/DL 3.5-5.2 CALC GLOBULIN (test code = 2240) 3.0 G/DL 1.9-3.7 CALC A/G RATIO (test code = 2234) 1.5 RATIO 1.0-2.6 BILIRUBIN, TOTAL (test code = 220) 0.3 MG/DL See_Comment [Automated me ssage] The system which generated this result transmitted reference range: <=1.2. The reference range was not used to interpret this result as normal/abnormal. ALKALINE PHOSPHATASE (test code = 2204) 102 U/L 40-113 AST (test code = 2218) 29 U/L 9-40 ALT (test code = 2219) 48 U/L 5-40 H LIPID [id number] 04:34:32* Test Item Value Reference Range Interpretation Comme nts CHOLESTEROL (test code = 2210) 215 MG/DL <200 H TRIGLYCERIDES (test code = 2232) 107 MG/DL <150 HDL CHOLESTEROL (test code = 2220) 52 MG/DL >39 CALC LDL CHOL (test code = 2237) 141 MG/DL <100 H NOTE: CALCULATED LDL IS BASED ON ABELARDO-BUCIO METHOD WHICHINCLUDES ADJUSTABLE TRIGLYCERIDE:VLDL CHOLESTEROL RATIO.THIS FACTOR VARIES BY MEASURED TRIGLYCERIDE AND NON-HDLCHOLESTEROL CONCENTRATIONS WITH INCREASED CALCULATED LDL SEENIN HIGHER TRIGLYCERIDE OR LOWER NON-HDL SPECIMENS. FOR MOREINFORMATION, SEE CLIENT ANNOUNCEMENT AT [email or web address] [email or web address] RATIO LDL/HDL (test code = 2238) 2.71 RATIO <3.22 LIPID [id number] 04:30:14* Test Item Value Reference Range Interpretation Comme nts CHOLESTEROL (test code = 2210) 186 MG/DL <200 TRIGLYCERIDES (test code = 2232) 149 MG/DL <150 HDL CHOLESTEROL (test code = 2220) 49 MG/DL >39 CALC LDL CHOL (test code = 2237) 111 MG/DL <100 H NOTE: CALCULATED LDL IS BASED ON ABELARDO-BUCIO METHOD WHICHINCLUDES ADJUSTABLE TRIGLYCERIDE:VLDL CHOLESTEROL RATIO.THIS FACTOR VARIES BY MEASURED TRIGLYCERIDE AND NON-HDLCHOLESTEROL CONCENTRATIONS WITH INCREASED CALCULATED LDL SEENIN HIGHER TRIGLYCERIDE OR LOWER NON-HDL SPECIMENS. FOR MOREINFORMATION, SEE CLIENT ANNOUNCEMENT AT [email or web address] [email or web address] RATIO LDL/HDL (test code = 2237) 2.27 RATIO <3.22 COMPREHENSIVE METABOLIC [id number] 04:30:14* Test Item Value Reference Range Interpretation Comme nts GLUCOSE (test code = 2216) 100 MG/DL 70-99 H BUN (test code = 2207) 14 MG/DL 6-20 CREATININE (test code = 2213) 0.69 MG/DL 0.60-1.30 eGFR (2020 CKD-EPI) (test code = ) 112 ML/MIN/1.73 >60 CALC BUN/CREAT (test code = 2234) 20 RATIO 6-28 SODIUM (test code = 2230) 141 MEQ/L 133-146 POTASSIUM (test code = 2227) 4.4 MEQ/L 3.5-5.4 CHLORIDE (test code = 2214) 105 MEQ/L 95-107 CARBON DIOXIDE (test code = 2205) 25 MEQ/L 19-31 CALCIUM (test code = 2208) 9.5 MG/DL 8.5-10.5 PROTEIN, TOTAL (test code = 2228) 7.3 G/DL 6.1-8.3 ALBUMIN (test code = 2200) 4.3 G/DL 3.5-5.2 CALC GLOBULIN (test code = 2240) 3.0 G/DL 1.9-3.7 CALC A/G RATIO (test code = 2233) 1.4 RATIO 1.0-2.6 BILIRUBIN, TOTAL (test code = 2206) 0.2 MG/DL See_Comment [Automated me ssage] The system which generated this result transmitted reference range: <=1.2. The reference range was not used to interpret this result as normal/abnormal. ALKALINE PHOSPHATASE (test code = 2203) 84 U/L 40-113 AST (test code = 2218) 16 U/L 9-40 ALT (test code = 2219) 23 U/L 5-40 UNLESS OTHERWISE INDICATED, ALL TESTING PERFORMED [facility] [address] [place] [id number] TRAFFIC ASSISTANT: VALENTIN LION M.D. PIO NUMBER [id number] [facility] [place]. [id number] Consult Notes Date/Time Note Provider Source 2022-10-13 14:50:00 Associated Order(s): CONSULT ADULT PHYSICAL THERAPY Patient agreeable to working with physical therapy. Patient met semi reclined in bed. Recommend nursing staff utilize Rolling walkerr to safely assist patient with mobility out of the bed or chair. PHYSICAL THERAPY EVALUATION Consult received, chart reviewed and evaluation complete this date. Patient is referred to PT for evaluation and treatment. Patient is a 41 year old female who presents to hospital for History of colostomy reversal [Z98.890] S/P ROBOTIC ASSISTED LAPAROSCOPIC COLOSTOMY REVERSAL (N/A),COLOSTOMY REVERSAL (N/A), PARASTOMAL HERNIORRHAPHY ( 10/12/2022) Discharge Recommendations: Therapy Needs and Potential: Patient would benefit from continued physical therapy services to address: decline in bed mobility decline in transfers decline in gait and/or balance decline in stair/step negotiation decreased strength decreased endurance Patient demonstrates good potential to improve and meet therapy goals with further physical therapy services. Patient appears motivated to improve their functional mobility and return to their previous level of function. Patient demonstrates ability to tolerate atleast 30-60 minutes of physical therapy with active participation. Challenges to Home Transition: increased risk of falls ( S/P surgery) decreased caregiver availability ( patient's spouse works, has three kids) decreased safety awareness environmental barriers ( 15 entrance steps) Equipment recommendations: Rolling Walker or Rollator: I certify that Chandu Medel is under my care and that I had a [id number] encounter with this patient on: 10/13/2022 . The primary reason for the durable medical equipment: Stability during mobility. I am ordering and certify that, based on my findings, the following is medically necessary durable medical equipment: Rolling walker . Patient has a mobility limitation that significantly impairs his/her ability to participate in one or more mobility-related activities of daily living (MRADL) in the home and the patient is able to safely use the walker and the functional mobility deficit can be sufficiently resolved with use of a walker. Height: Ht Readings from Last 1 Encounters: 10/13/22 5' 5" (1.651 m) Weight: Wt Readings from Last 1 Encounters: 10/13/22 241 lb (109.3 kg) Duration of need: 99 months. AM-PAC 6 Clicks (Raw Score 0=Dependent, 24=Independent; Low function Raw Score 0= Dependent, 32=Independent): Raw Score- Basic Mobility: 11 T-Scale Score- Basic Mobility: 30.25 Bed Mobility: Rolling: Moderate Assistance Supine-sit: Moderate Assistance Sitting balance Good Scooting to edge of bed: Maximum Assistance Patient requires extra time to complete task due to pain, requires cueing for task sequencing. Patient with limited sitting due to pain as well. Transfers: sit-stand: Moderate Assistance Transfer with or without rolling walker : Moderate Assistance, patient with complaint of significant pain on abdominal surgical incision. Provided cueing for proper turning and for proper hands placement. Ambulation: Patient made few side steps ( side of bed) with rolling walker: Moderate A. Limited mobility tolerance due to pain. Therapeutic exercise: Patient was instructed for both LE, encouraged self range of motion to enhance independence in her HEP. Patient with poor tolerance to exercise at this time due to pain ( post surgical site on abdomen). patient educated in Adaptive equipment , Energy conservation, Fall prevention, Gross motor coordination of LEs, Positioning, and Safety awareness. After session, patient semi reclined in bed. Call button provided. RN jamari aware regarding patient's status post PT and patient's response to therapy. PLAN OF CARE: While in the hospital, PT will follow patient at least 2 times per week,once or twice a day, per patient's tolerance and needs. See below for complete details. Admit Date: 10/12/2022 Hospital Diagnosis:History of colostomy reversal [Z98.890] PT Diagnosis: Difficulty walking and Weakness Weight Bearing Precaution: NA General Precautions: PPE used:Gloves and Surgical mask, General, Fall,IV oxygen per nasal canula, ICU monitoring , right eye covered with guaze bandage ( Patient reports her right eye is red since after surgery). Bracing/Cast present or required:abdominal binder PMH: No past medical history on file. PSH: Past Surgical History: Procedure Laterality Date COLONOSCOPY N/A 12/12/2021 Surgeon: Duy Woodruff MD; Location: [place] [facility] COLOSTOMY REVERSAL (SHX) N/A 10/12/2022 Surgeon: Morena Rios MD; Location: [facility] OR LOCATION CYSTOSCOPY N/A 02/25/2022 Surgeon: Oneal Anderson MD; Location: [facility] OR LOCATION DIAGNOSTIC LAPAROSCOPY N/A 02/25/2022 Surgeon: Oneal Anderson MD; Location: [facility] LOCATION HYSTERECTOMY Partial LAPAROSCOPIC ROBOTIC ASSISTED LOWER ANTERIOR RESECTION N/A 02/25/2022 Surgeon: Morena Rios MD; Location: [facility] OR LOCATION LAPAROSCOPIC ROBOTIC ASSISTED RECTOPEXY N/A 02/23/2022 Surgeon: Morena Rios MD; Location: [facility] OR LOCATION PARASTOMAL HERNIORRHAPHY N/A 10/12/2022 Surgeon: Morena Rios MD; Location: [facility] OR LOCATION REPAIR HERNIA ROBOT-ASSISTED PARASTOMAL (SHX) N/A 07/03/2022 Surgeon: Morena Rios MD; Location: [facility] OR LOCATION ROBOTIC ASSISTED LAPAROSCOPIC COLOSTOMY REVERSAL (SHX) N/A 10/12/2022 Surgeon: Morena Rios MD; Location: [facility] OR LOCATION Prior Living Situation: Lives with boyfriend and three kids, apartment [address] with single hand rail. DME: No device Prior level of Mobility: community ambulation, house hold ambulation Suspected ischemic or hemorraghic stroke:No Subjective: " I am tired" Patient/Family Goals: " To be walking again without pain" Patient/Family verbalizes understanding of condition: Yes PAIN: -Pain Description: constant and sharp -Pain Location: abdomen -Pain rating before treatment: 7, After treatment: 10 -Pain Management: Reports taking pain meds, Nursing Notified, and Repositioning Provided COMMUNICATION Primary Language: Montenegrin Able to Verbalize needs: Yes Vision:good; ( left) no issues reported , ight eye covered with guaze bandage ( Patient reports her right eye is red since after surgery). " I can't see on my right eye" Hearing:good; no issues reported ORIENTATION/COGNITION: Oriented to: person, place, date/time, and situation Awake: Yes Alert: Yes Dizzy: No Follows Commands: Yes 1-Step Yes Multi-Step Yes Inconsistent: No NEUROLOGICAL Light Touch: within functional limits bilateral LE, Heel to garrett: Able , slow due to pain Tone: Normal BALANCE: Sitting: Static: Good Dynamic: Fair+ Standing: Static: Fair Dynamic: Poor RANGE OF MOTION: within functional limits bilateral LE, STRENGTH: 3-/5 (F-), bilateral LE ENDURANCE: Poor+ due to pain, Nasal canula SKIN INTEGRITY: S/P abdominal surgery ( abdomen),see RN skin assessment PROBLEM LIST: Decline in bed mobility, Decline in gait, Decline in transfers, Difficulty with stairs, Decreased strength, Decreased endurance, Decreased balance, and Safety awareness deficits ASSESSMENT: Patient is a 41 year old female seen secondary to the above listed diagnosis. Patient would benefit from continued PT to address the above listed deficits to maximize independence and safety with functional mobility. Rehabilitation Potential: good Goals: The following goals are to maximize independence and safety with functional mobility to eventually return to prior living situation and prior functional status. Upon discharge, patient and/or family will demonstrate the followin. Rolling: Independent Supine-sit: Independent Scooting to edge of bed: Independent 2. Sit to stand and transfer with least restrictive assistive device: Independent 3. Independent with ambulation, Feet: 150 using least assistive device. 4. Supervision up/down 15 stairs using single hand rail.. 5. Demonstrate or verbalize understanding of home exercise program in order to continue with their rehab on their own. Treatment Plan: Gait training, Gait training on stairs, Therapeutic exercise, Transfer training, Balance training, Bed mobility training, Safety education, patient/caregiver education, Neuromuscular Re-Education, and Functional Motor Training PATIENT EDUCATION: Patient provided with preferred teaching of verbal information and demonstration on role of PT, plan of care, goals, safety precautions, energy conservation techniques.and discharge plans. Shows readiness to learn. Verbal instruction and Demonstration teaching provided. Individual is able to read and verbalizes understanding of teaching provided. Total Time Tx Codes in Minutes: 23 min Total Treatment Time in Minutes: 40 min Chasity Ortega PT, CLT Chasity Ortega PT [facility] 2022-10-13 13:14:17 Associated Order(s): CONSULT VASCULAR ACCESS V[facility] Access Services VAS was consulted for MIDLINE insertion. Consult has been acknowledged, and the patient's medical chart has been reviewed. Please see procedural note. T [facility] 2022-10-13 09:28:00 Associated Order(s): CONSULT ADULT OCCUPATIONAL THERAPY OT GENERAL EVALUATION Consult received via [employer], EMR reviewed and evaluation completed 10/13/22. Patient referred to occupational therapy for evaluation and treatment secondary to colostomy reversal. Nurse agreeable for patient to participate with occupational therapy. Discharge Recommendations: Therapy Needs and Potential:- Patient would benefit from continued skilled occupational therapy services to address: Decline in basic activities of daily living, Decline in instrumental activities of daily living, Decreased strength, and Decreased endurance - Patient demonstrates good potential to improve and meet therapy goals with further skilled occupational therapy services. - Patient appears motivated to improve their B/IADLs and return to their previous level of function. - Patient demonstrates ability to tolerate at least 30-60 minutes of active participation in occupational therapy. Challenges to Home Transition:- Requires physical assistance for BADLS - Requires physical assistance for IADLS - Decreased safety awareness/judgement - Increased risk of falls Equipment Recommendations: will continue to assess pending further progress with therapy PLAN OF CARE: At least 2x/week Precautions: Weight bearing status: NA General: PPE Utilized: Gloves, Fall, and MOLDING LINE ASSISTANT pump Bracing: Abdominal binder Current Occupational Performance and/or Treatment: AM-PAC 6 Clicks (Raw Score 0=Dependent, 24=Independent; Low function Raw Score 0= Dependent, 32=Independent): Raw Score - Daily Activity: 11 T-Scale Score - Daily Activity: 29.04 Feeding: Supervision, pt took sip of water Grooming: Supervision, wash face LB Dressing: Total Assistance, don socks Toileting Hygiene: Total Assistance, pt with brief and catheter in place Functional Mobility: Supine<>sit log roll requiring moderate assist for trunk transition Pt with increased pain while seated edge of bed and wanted to return supine immediately Patient/caregiver educated on: ADL training, AROM, Role of OT, and Safety awareness Patient left semireclining in bed with call bermudez in reach. Nursing present. Please, see full evaluation below for more detail. OT EVALUATION: 41 year old female Admit date: 10/12/2022 Date of onset: 10/13/2022 Admit Diagnosis: History of colostomy reversal [Z98.890] OT Diagnosis: Impaired BADL independence, Impaired IADL independence, Weakness, Activity intolerance, Decreased endurance, and Impaired self-care mobility PMH: No past medical history on file. PSH: Past Surgical History: Procedure Laterality Date COLONOSCOPY N/A 12/12/2021 Surgeon: Duy Woodruff MD; Location: [facility] OR [facility] COLOSTOMY REVERSAL (SHX) N/A 10/12/2022 Surgeon: Morena Rios MD; Location: [facility] OR LOCATION CYSTOSCOPY N/A 02/25/2022 Surgeon: Oneal Anderson MD; Location: [facility] OR LOCATION DIAGNOSTIC LAPAROSCOPY N/A 02/25/2022 Surgeon: Oneal Anderson MD; Location: [facility] OR LOCATION HYSTERECTOMY Partial LAPAROSCOPIC ROBOTIC ASSISTED LOWER ANTERIOR RESECTION N/A 02/25/2022 Surgeon: Morena Rios MD; Location: [facility] OR LOCATION LAPAROSCOPIC ROBOTIC ASSISTED RECTOPEXY N/A 02/23/2022 Surgeon: Morena Rios MD; Location: [facility] OR LOCATION PARASTOMAL HERNIORRHAPHY N/A 10/12/2022 Surgeon: Morena Rios MD; Location: [facility] OR LOCATION REPAIR HERNIA ROBOT-ASSISTED PARASTOMAL (SHX) N/A 07/03/2022 Surgeon: Morena Rios MD; [facility] LOC[facility] ROBOTIC ASSISTED LAPAROSCOPIC COLOSTOMY REVERSAL (SHX) N/A 10/12/2022 Surgeon: Morena Rios MD; Location: [facility] PAIN: Before assessment: 10/01 After assessment: 10/01 Location: eye pain and abdomina pain Pain Management: Uses MOLDING LINE ASSISTANT OCCUPATIONAL ROLES/HOME ENVIRONMENT: Home environment: Lives with step kids and Upstairs apartment . No elevator Bathroom access: Yes Bathroom setup: Shower Occupation(s): Unemployed Function prior to admission: Household ambulation, Community ambulation, Independent with BADLs, and Independent with IADLs Suspected ischemic or hemorraghic stroke patient: No Equipment prior to admission: None PERFORMANCE SKILLS/FACTORS: UE Muscle Tone: bilateral WNL UE ROM: bilateral AROM WFL UE Strength: SYEDA UE WFL Hand dominance: right Dexterity/Coordination: bilateral Fine motor skills Intact Endurance - Sitting: Fair - Standing: NT Sitting Balance - Static: Fair Dynamic: Fair - Standing: Balance - Static NT Dynamic: NT Dizziness: No Skin Integrity: No breakdown noted Sensation: bilateral Intact to light touch Oral Motor: WFL Communication: Able to verbalize needs Yes Other: N/A Vision: pt reporting pain in right eye post surgery and reports she is not able to open both Hearing: good; no issues reported COGNITION: Orientation: person, place, date/time, and situation Follows Commands: 1-step Yes Multi-step Yes Inconsistencies No Safety Awareness/Judgment: Fair PROBLEM LIST: Decreased independence with ADL and Decreased strength/endurance for functional activity REHAB POTENTIAL/PROGNOSIS: guarded PATIENT/FAMILY GOALS: to get stronger TREATMENT/INTERVENTION PLAN: Functional motor treatment, Patient/Caregiver Education, Equipment recommendations, Daily living activities, and Therapeutic exercises GOAL(S): By discharge, patient will increase independence in daily living skills as follows: 1 Patient will perform face washing with independence. 2 Patient will perform UB dressing with independence. 3 Patient will perform LB dressing with moderate assistance. 4 Patient will complete toileting hygiene, including clothing management, with moderate assistance. 5 Patient will increase endurance for functional activity as evidenced by ability to sustain 30 minutes of active participation. 6 Patient/caregiver will verbalize/demonstrate understanding/proficiency in the following home programs: ADL training, AROM, Fall prevention, General strengthening, Role of OT, and Safety awareness PATIENT-FAMILY TEACHING Patient provided with preferred teaching of verbal information on ADL training, Fall prevention, General strengthening, Role of OT, and Safety awareness. Shows readiness to learn. Verbal instruction teaching provided. Individual is able to read and verbalizes understanding of teaching provided. Jessica SHEPPARD Department of Occupational Therapy This therapist may not be the primary therapist please contact rehab services with any questions. Total Timed Treatment Codes: 13 Min Total Treatment Time: 21 Min Patient Complexity Level Moderate - An occupational therapy evaluation of moderate complexity was completed using the above tests and measures. The following information was obtained: An occupational profile and medical and therapy history, including an expanded review of medical and/or therapy records and additional review of physical, cognitive, or psychosocial history related to current functional performance, Various standardized and non-standardized assessments were used to identify at least 3-5 performance deficits related to physical, cognitive, or psychosocial skills that result in activity limitations and/or participation restrictions, and Clinical decision making of moderate analytic complexity, which includes an analysis of the occupational profile, analysis of data from detailed assessment(s), and consideration of several treatment options. Patient may present with comorbidities that affect occupational performance. Minimal to moderate modification of tasks or assistance (e.g., physical or verbal) with assessment(s) is necessary to enable patient to complete evaluation component. Jessica Real OT [facility] - Health History and Physical Notes Date/Time Note Provider Source 2022-10-12 08:56:57 Formatting of this n ote might be different from the original. Patient seen and examined. There have been no changes to the interval H&P since 09/24/2022. Plan for robotic assisted colostomy reversal today, possible open. All risks benefits and alternatives discussed with patient, including the risk of bleeding, infection, damage to surrounding tissues and need for more invasive measures to address these complications, recurrent rectal prolapse, anastomotic leak, and recurrent stomal hernia requiring additional staged repair with synthetic mesh, and they are amenable to proceed with procedure. Mechanical bowel prep: completed reid/fagyl Antibiotic bowel prep: completed golytely Ensure supplement morning of surgery: not taken Preoperative ERAS medications: given tylenol/celebrex/gabapentin Preoperative imaging: reviewed CT imaging Preoperative cardiac/pulmonary clearance: none indicated Preoperative directives: none All questions were answered. Consent form is signed and in the chart. Morena Riso MD 10/12/2022 8:57 AM Colon and Rectal Surgery Source Note - Morena Rios MD - 09/24/2022 8:00 AM CDT COLORECTAL SURGERY HISTORY AND PHYSICAL NOTE REASON FOR REFERRAL: rectal prolapse s/p robotic kane's pouch with rectopexy and end colostomy, robotic parastomal hernia repair Cc: Chief Complaint Patient presents with Follow-up SUBJECTIVE: 09/24/22: Ms Medel is here today with no major complaints. Underwent parastomal hernia seroma aspiration with relief of symptoms, hernia has partially recurred but not painful as before. She is not smoking, is not constipated, and on ozempic gradually loosing weight. 07/23/22: Ms Dumont is here s/p parastomal hernia repair 07/03/22. She is doing well, has swelling around the stoma which she says does not change with position as did her previous hernia. She denies severe pain, has mostly regular bowel movements and is feeling ready to be more active. She is eating well and doing her pelvic floor exercises. 05/21/22: Ms Dumont presents today with c/o abdominal discomfort due to large parastomal hernia. Reports intermittent waxing and waning pressure related to colonic mobility and stool output changes due to hernia. She reports stool as smaller in caliber and volume. She takes Golytely and Miralax intermittently. She denies nausea/vomiting. Reports abdominal pain is worst than labor. Completed first pelvic floor session and has been doing exercises at home. Attempted medical weight loss three times with PCP but per patient, provider refused as she was under the care of a doctor. She has not lost weight and has not been more active due to hernia discomfort. She spends days in bed without moving. She was recently in emergency room due to pain. She denies rectal prolapse but sometimes experiences yellow/mucous drainage. 03/13/22: Ms Dumont is here for her 2 week post op evaluation. She is still having mild abdominal pain and some issues with pouching of her colostomy. She is eating well and having appropriate daily stool output. She denies fever/chills/nausea/vomiting. Had some pressure in rectum and it resolved with enema. 12/2021: Chandu Medel is a 41 yrs old female who presents for evaluation of rectal prolapse. Duration of symptoms : 3.5 years Frequency of prolapse : repeatedly prolapses throughout the day, 20-30 times, with movement or straining Incontinence : liquid Consistency of bowel movements :soft, medium, and hard Need for digitation for complete evacuation: no Need for straining and how often: yes, when stool hard, intermittently Rectal bleeding : yes Rectal pain : yes, with prolapse Abdominal pain : yes, related to constipation Urinary incontinence : no Vaginal deliveries : no Therapies: Fiber, not currently on them, and Laxatives, miralax, but not currently on because they upset her abdomen and worsen incontinence Diagnostic Studies: Colonoscopy: completed, wnl Defocography: not done Allergies Chandu has No Known Allergies. Medications Outpatient Medications Prior to Visit Medication Sig Dispense Refill oxyCODONE 5 mg immediate release tablet Take 1 tablet by mouth every 4 (four) hours as needed for Pain (scale 4-6). Indications: acute pain 28 tablet 0 semaglutide (OZEMPIC) 1 mg/dose (4 mg/3 mL) PnIj inject 1 mg under the skin weekly for 10 doses. 3 Pen 0 acetaminophen (TYLENOL EXTRA STRENGTH) 500 mg tablet Take 2 tablets by mouth every 8 (eight) hours. 180 tablet 0 celecoxib 200 mg capsule Take 1 capsule by mouth in the morning. 14 capsule 0 gabapentin 300 mg capsule Take 1 capsule by mouth in the morning and 1 capsule at noon and 1 capsule in the evening. 42 capsule 0 methocarbamoL 750 mg tablet Take 1 tablet by mouth 4 (four) times daily. 60 tablet 1 polyethylene glycol 3350 (MIRALAX) 17 gram powder Take 1 Packet by mouth in the morning. 30 Packet 0 ondansetron (ZOFRAN) 4 mg tablet Take 1 tablet by mouth every 8 (eight) hours as needed for Nausea and Vomiting (N/V) for up to 3 doses. 3 tablet 0 lisinopriL-hydrochlorothiazide 20-12.5 mg per tablet Take 1 tablet by mouth every morning. No facility-administered medications prior to visit. Histories No past medical history on file. Past Surgical History: Procedure Laterality Date COLONOSCOPY N/A 12/12/2021 Surgeon: Duy Woodruff MD; Location: [facility] CYSTOSCOPY N/A 02/25/2022 Surgeon: Oneal Anderson MD; Location: [facility] DIAGNOSTIC LAPAROSCOPY N/A 02/25/2022 Surgeon: Oneal Anderson MD; Location: [facility] HYSTERECTOMY Partial LAPAROSCOPIC ROBOTIC ASSISTED LOWER ANTERIOR RESECTION N/A 02/25/2022 Surgeon: Morena Rios MD; Location: [facility] LAPAROSCOPIC ROBOTIC ASSISTED RECTOPEXY N/A 02/23/2022 Surgeon: Morena Rios MD; Location: [facility] OR [facility] REPAIR HERNIA ROBOT-ASSISTED PARASTOMAL (SHX) N/A 07/03/2022 Surgeon: Morena Rios MD; Location: [facility] Social History Socioeconomic History Marital status: Number of children: 1 Tobacco Use Smoking status: Former Types: Cigarettes Passive exposure: Current Smokeless tobacco: Never Social Determinants of Health Financial Resource Strain: Low Risk (07/06/2022) Overall Financial Resource Strain (CARDIA) Difficulty of Paying Living Expenses: Not hard at all Food Insecurity: No Food Insecurity (07/06/2022) Hunger Vital Sign Worried About Running Out of Food in the Last Year: Never true Ran Out of Food in the Last Year: Never true Transportation Needs: No Transportation Needs (07/06/2022) PRAPARE - Transportation Lack of Transportation (Medical): No Lack of Transportation (Non-Medical): No Physical Activity: Inactive (07/06/2022) Exercise Vital Sign Days of Exercise per Week: 0 days Minutes of Exercise per Session: 0 min Social Connections: Unknown (07/06/2022) Social Connection and Isolation Panel [NHANES] Frequency of Communication with Friends and Family: More than three times a week Marital Status: Housing Stability: Low Risk (07/06/2022) Housing Stability Vital Sign Unable to Pay for Housing in the Last Year: No Number of Places Lived in the Last Year: 1 Unstable Housing in the Last Year: No No family history on file. Review of Systems Review of Systems Constitutional: Negative. HENT: Negative. Eyes: Negative. Respiratory: Negative. Cardiovascular: Negative. Gastrointestinal: As above Genitourinary: Negative. Musculoskeletal: Negative. Skin: Negative. Neurological: Negative. Psychiatric/Behavioral: Negative. Endocrine: Negative Physical Exam BP (!) 175/124 (BP CUFF SIZE: Adult XL) | Pulse 117 | Temp 36.3 ?C (97.4 ?F) | Resp 18 | Ht 1.651 m (5' 5") | Wt 113.4 kg (250 lb) | SpO2 95% | BMI 41.60 kg/m? Physical Exam Vitals signs reviewed. Constitutional: Appearance: Normal appearance. HENT: Head: Normocephalic and atraumatic. Eyes: Extraocular Movements: Extraocular movements intact. Neck: Musculoskeletal: Normal range of motion. Cardiovascular: Rate and Rhythm: Normal rate. Pulmonary: Effort: Pulmonary effort is normal. Abdominal: General: Abdomen is protuberant. Incisions well healed. Parastomal hernia, large, reducible, no overlying skin changes, non tender, ostomy patent productive, ostomy appliance with good seal Rectal: Deferred today Musculoskeletal: Normal range of motion. Skin:General: Skin is warm and dry. Colonoscopy 12/12/21: - The perianal and digital rectal examinations were notable for NO rectal tone whatsoever. - A few medium-mouthed diverticula were found in the sigmoid colon, mid sigmoid colon, distal sigmoid colon and hepatic flexure. - The digital rectal exam findings include decreased sphincter tone. Surgical pathology A. COLON, SIGMOID, SEGMENTAL RESECTION: - SEGMENT OF COLON, 14.6 CM LONG, WITH NO HISTOPATHOLOGIC CHANGES - RESECTION MARGINS VIABLE Assessment/Plan Chandu Medel is a 41 year old female who presented for constipation and full thickness large rectal prolapse with absent sphincter tone. She failed ventral mesh rectopexy due to body habitus and absent sphincter tone with heavily redundant rectosigmoid, thus required a robotic currie's with rectopexy and end colostomy. Her rectal prolapse responded well to this approach, however given her obesity and ongoing intermittent smoking, she formed a large parastomal hernia that was extremely symptomatic. I offered proceeding with a parastomal hernia repair to allow for more time for weight loss and sphincter rehab. She was not interested in pursuing this option, however due to ongoing smoking making reversal high risk for post operative morbidity, we opted to proceed with just a parastomal hernia repair primarily on day of surgery. She is doing well today, ready for reversal as she is not smoking. Plan: - plan for robotic assisted colostomy reversal September (10/12/22) now that more medically optimized, is loosing weight, is not smoking, and rectal tone and prolapse continue to improve - colon miralax prep/zofran/abx given with instructions- all questions answered - All risks benefits and alternatives discussed with patient, including the risk of bleeding, infection, damage to surrounding tissues and need for more invasive measures to address these complications, and she is amenable to proceed with procedure. I spent 30 minutes of time, independent of resident or medical student time spent during the entirety of this appointment, dedicated to: PreCharting (eg, review of tests, notes, etc.), Performing a medically appropriate examination and/or evaluation, Counseling and educating the patient/family/caregiver, and Documenting clinical information in the electronic or other health record. Morena Rios MD 09/24/2022 11:34 AM Colon and Rectal Surgery [facility] Procedure Notes Date/Time Note Provider Source 2022-10-13 13:14:35 Formatting of this n ote might be different from the original. [facility] ULTRASOUND GUIDED MID-LINE PLACEMENT Procedure performed by: Jose Lindsey RN 41 year old /White female. No Known Allergies Attending Provider: Morena Rios MD Education provided to patient, to include pros and cons, risks versus benefits and possible complications associated with MID-LINE insertion. Questions encouraged and answered accordingly. Written Consent obtained from Chandu Weekly. Time Out was Performed, to include procedure performed, Identity of proceduralist, and identity of procedure recipient by two identifiers, according to policy and procedure for single proceduralist procedures. An ultrasound guided, 3 Fr., 6 cm. MIDLINE was then placed in the left upper cephalic vein, in one attempt(s). Local anesthetic not used. Labs obtained: no Patient tolerated procedure well: yes Complications: no REF#: [id number] Lot #: [id number] Exp: 10/22/22 Jose Lindsey RN [facility] 2022-10-12 10:07:13 Associated Order(s): Intubation Intubation Date/Time: 10/12/2022 9:57 AM Urgency: elective Airway not difficult General Information and Staff Patient location during procedure: OR Performed: resident/LANDING MAN Performed by: Fish Stover CRNA Authorized by: Juan Ramon Bethea MD Indications and Patient Condition Indications for airway management: anesthesia and airway protection Spontaneous ventilation: present Sedation level: minimal Preoxygenated: yes Patient position: sniffing MILS maintained throughout Mask difficulty assessment: 1 - vent by mask No planned trial extubation Final Airway Details Final airway type: endotracheal airway Successful airway: ETT Cuffed: yes Successful intubation technique: direct laryngoscopy Facilitating devices/methods: intubating stylet Endotracheal tube insertion site: oral Blade: Chavez Blade size: #3 ETT size (mm): 7.0 Placement verified by: chest auscultation and capnometry Inital cuff pressure (cm H2O): 0 Cuff volume (mL): 7 Measured from: lips ETT to lips (cm): 20 Number of attempts at approach: 1 Ventilation between attempts: none Number of other approaches attempted: 0 NACR-NURSE WEB SOFTWARE ENGINEER,CERTIFIED REGISTERED NURSE WEB SOFTWARE ENGINEER [facility] Notes Date/Time Note Provider Source 2022-11-06 11:30:32 Formatting of this n ote might be different from the original. Patient calling office again and has requested Oxy refill since beginning of the month. Please review and advise. Patient completely out. Kiara Alvarado [facility] 2022-10-28 10:57:37 Formatting of this n ote might be different from the original. Patient calling office for update Kiara Alvarado [facility] 2022-10-26 06:57:18 Formatting of this n ote might be different from the original. Chandu Medel is a 41 year old female Patient called requesting refills for the following medication. Gabapentin 300 mg capsule Methocarbamol 500 mg tablet Oxycodone 5 mg tablet Celecoxib 100 mg capsule [facility] 2022-10-21 16:25:23 Formatting of this n ote is different from the original. TRANSITIONAL CARE MANAGEMENT ASSESSMENT 10/21/2022 Chandu Medel [id number] Chandu Medel is a 41 year old /White female was admitted on 10/12/22 to [facility] [place] [address]. She was discharged on 10/19/22 with discharge disposition of HR- Routine Discharge. Admitting Physician: Morena Rios Discharge Diagnosis: colostomy in place Linked Episodes Type: Episode: Status: Noted: Resolved: Last update: Updated by: TRANSITION OF CARE TCM Active 10/20/2022 10/21/2022 4:23 PM Chapis Day, RN Comments: TCM Fsm-afky-if-face outreach documentation: Discharge Assessment Chart Assessed: 10/21/22 TCM Outreach Completed: 10/21/22 Do you have a few minutes to speak with me about how you are doing at home?: Yes (pt reports she is doing well. She denies having any questions/concerns at this time.) Discharge Instructions Do you understand your at-home instructions?: Yes Medications Have you filled your prescriptions and do you have them in your home? : Yes Do you know how to take your medications?: Yes Can you provide me with the names or descriptions of any dzwz-oby-najluce or supplements you are currently taking?: Yes Supplies Did you receive applicable home medical supplies/equipment?: N/A Follow Up Appointment Has a follow up appointment been scheduled?: Yes Do you have any questions about your follow up appointments?: No Are you able to get to your appointment? Who will be taking you?: Yes (pt has transportation) Home Health Assistance Has the home health nurse contacted you since you've been home?: N/A Survey - Recognition Is there anything you would like to share about your recent hospitalization, or anyone you would like to recognize?: No Do you have any suggestions for improvement?: No Do you have any other questions or concerns at this time?: No Future Appointments: Future Appointments Provider Department Dept Phone 10/29/2022 8:15 AM Morena Rios MD [facility], [place] [phone] Chapis Day RN [facility] 2022-10-19 10:00:00 Formatting of this n ote is different from the original. Care Management Discharge Disposition Note (DCDN) 5-2-1 Interventions: Disease specific education;Intensive medication reconciliation/management; Teach back;Clear discharge plan;Follow-up appointments 5-2-1 Providers: Physician;Fruit Or Nut Grower/Probation And Parole Officer;Nurse 5-2-1 Patient Capacity Improvements: Avoidance of adverse events/readmission Discussed with patient/patient s family involved in decision making: Patient or family caregiver understands, and agrees with discharge plan Patient's family or support contact: Mother Merle [phone] and boyfriend William [phone] Discharge Plan for ongoing care and services: Home/Caregiver Home Discharge Location: Home/Caregiver address: [address] [place] [id number] Transportation: Private Vehicle Prior authorization obtained for ambulance: Authorization number: CPT code: Discharge Medications Will the patient be able to obtain his medications? Yes Does the patient have transportation to to obtain the prescription medications? Yes Expected discharge date: 10/19/22 Time: Name of RN informed of discharge: ALVIN Rapp Additional Information: CM/SW Name & Contact number: Yeny MAYRA Naranjo Ph. [phone] The following information has been provided to the facility noted above: reason for the patient discharge or transfer; patient s physical and psychosocial status; summary of care, treatment, services provided to patient; and the patient progress toward goals. [facility] 2022-10-19 09:23:58 Formatting of this n ote might be different from the original. Problem: Discharge Planning Goal: Adequate for discharge Outcome: Resolved Goal: Adequate to move to next level of care Outcome: Resolved Goal: Knowledge of medication management Outcome: Resolved Problem: Pain Goal: Control of pain at or below patient's documented comfort goal Outcome: Resolved Goal: Reduction in pain sensation Outcome: Resolved Problem: Skin integrity Impaired (Risk or Actual) Goal: Wound healing Outcome: Resolved Goal: Prevention of new skin breakdown Outcome: Resolved Problem: Falls, Risk of Goal: Absence of falls Outcome: Resolved Problem: Discharge Planning Goal: Adequate for discharge Outcome: Resolved Goal: Effective communication Outcome: Resolved Problem: Pain Goal: Control of pain at or below patient's documented comfort goal Outcome: Resolved Goal: Reduction in pain sensation Outcome: Resolved T Nick Gonzalez RN [facility] 2022-10-19 04:07:07 Formatting of this n ote might be different from the original. Pt no longer has Midline access, pt wanted midline to be removed, due to it hurting, pt also does not want another IV placed at this time, surgery is aware. Senia Andrews RN [facility] 2022-10-19 00:35:32 Formatting of this n ote might be different from the original. Problem: Discharge Planning Goal: Adequate for discharge Outcome: Progressing as expected Goal: Adequate to move to next level of care Outcome: Progressing as expected Goal: Knowledge of medication management Outcome: Progressing as expected Problem: Pain Goal: Control of pain at or below patient's documented comfort goal Outcome: Progressing as expected Goal: Reduction in pain sensation Outcome: Progressing as expected Problem: Skin integrity Impaired (Risk or Actual) Goal: Wound healing Outcome: Progressing as expected Goal: Prevention of new skin breakdown Outcome: Progressing as expected Problem: Infection Risk Goal: Absence of infection Outcome: Progressing as expected Problem: Falls, Risk of Goal: Absence of falls Outcome: Progressing as expected Problem: Discharge Planning Goal: Adequate for discharge Outcome: Progressing as expected Goal: Effective communication Outcome: Progressing as expected Problem: Pain Goal: Control of pain at or below patient's documented comfort goal Outcome: Progressing as expected Goal: Reduction in pain sensation Outcome: Progressing as expected . [facility] 12[facility] Formatting of this n ote might be different from the original. Problem: Discharge Planning Goal: Adequate for discharge Outcome: Progressing as expected Goal: Adequate to move to next level of care Outcome: Progressing as expected Goal: Knowledge of medication management Outcome: Progressing as expected Problem: Pain Goal: Control of pain at or below patient's documented comfort goal Outcome: Progressing as expected Goal: Reduction in pain sensation Outcome: Progressing as expected Problem: Skin integrity Impaired (Risk or Actual) Goal: Wound healing Outcome: Progressing as expected Goal: Prevention of new skin breakdown Outcome: Progressing as expected Problem: Falls, Risk of Goal: Absence of falls Outcome: Progressing as expected Problem: Discharge Planning Goal: Adequate for discharge Outcome: Progressing as expected Goal: Effective communication Outcome: Progressing as expected . [facility] 00:20:17 Formatting of this n ote might be different from the original. Problem: Pain Goal: Control of pain at or below patient's documented comfort goal Outcome: Progressing as expected Goal: Reduction in pain sensation Outcome: Progressing as expected Problem: Skin integrity Impaired (Risk or Actual) Goal: Wound healing Outcome: Progressing as expected Problem: Infection Risk Goal: Absence of infection Outcome: Progressing as expected Problem: Falls, Risk of Goal: Absence of falls Outcome: Progressing as expected Problem: Discharge Planning Goal: Adequate for discharge Outcome: Progressing as expected Goal: Effective communication Outcome: Progressing as expected Mary Lou Meza RN [facility] 2022-10-17 06:49:06 Formatting of this n ote might be different from the original. Problem: Discharge Planning Goal: Adequate for discharge Outcome: Progressing as expected Goal: Adequate to move to next level of care Outcome: Progressing as expected Goal: Knowledge of medication management Outcome: Progressing as expected Problem: Pain Goal: Control of pain at or below patient's documented comfort goal Outcome: Progressing as expected Goal: Reduction in pain sensation Outcome: Progressing as expected Problem: Skin integrity Impaired (Risk or Actual) Goal: Wound healing Outcome: Progressing as expected Goal: Prevention of new skin breakdown Outcome: Progressing as expected Problem: Infection Risk Goal: Absence of infection Outcome: Progressing as expected Problem: Falls, Risk of Goal: Absence of falls Outcome: Progressing as expected Problem: Discharge Planning Goal: Adequate for discharge Outcome: Progressing as expected Goal: Effective communication Outcome: Progressing as expected Mirian Rader RN [facility] 2022-10-17 00:31:06 Formatting of this n ote might be different from the original. Problem: Discharge Planning Goal: Adequate for discharge Outcome: Progressing as expected Goal: Adequate to move to next level of care Outcome: Progressing as expected Goal: Knowledge of medication management Outcome: Progressing as expected Problem: Pain Goal: Control of pain at or below patient's documented comfort goal Outcome: Progressing as expected Goal: Reduction in pain sensation Outcome: Progressing as expected Problem: Skin integrity Impaired (Risk or Actual) Goal: Wound healing Outcome: Progressing as expected Goal: Prevention of new skin breakdown Outcome: Progressing as expected Problem: Falls, Risk of Goal: Absence of falls Outcome: Progressing as expected Problem: Discharge Planning Goal: Adequate for discharge Outcome: Progressing as expected Goal: Effective communication Outcome: Progressing as expected [facility] 2022-10-15 21:32:39 Formatting of this n ote might be different from the original. Problem: Discharge Planning Goal: Adequate for discharge Outcome: Progressing as expected Goal: Adequate to move to next level of care Outcome: Progressing as expected Goal: Knowledge of medication management Outcome: Progressing as expected Problem: Pain Goal: Control of pain at or below patient's documented comfort goal Outcome: Progressing as expected Goal: Reduction in pain sensation Outcome: Progressing as expected Problem: Skin integrity Impaired (Risk or Actual) Goal: Wound healing Outcome: Progressing as expected Goal: Prevention of new skin breakdown Outcome: Progressing as expected Problem: Infection Risk Goal: Absence of infection Outcome: Progressing as expected Problem: Falls, Risk of Goal: Absence of falls Outcome: Progressing as expected Problem: Discharge Planning Goal: Adequate for discharge Outcome: Progressing as expected Goal: Effective communication Outcome: Progressing as expected Ryan Duran RN [facility] 2022-10-15 10:01:57 Formatting of this n ote might be different from the original. Problem: Discharge Planning Goal: Adequate for discharge Outcome: Progressing as expected Problem: Pain Goal: Control of pain at or below patient's documented comfort goal Outcome: Progressing as expected Problem: Skin integrity Impaired (Risk or Actual) Goal: Wound healing Outcome: Progressing as expected Problem: Infection Risk Goal: Absence of infection Outcome: Progressing as expected Renetta Blackwood RN [facility] 2022-10-15 00:04:58 Formatting of this n ote might be different from the original. Problem: Discharge Planning Goal: Adequate for discharge Outcome: Progressing as expected Goal: Adequate to move to next level of care Outcome: Progressing as expected Problem: Pain Goal: Control of pain at or below patient's documented comfort goal Outcome: Progressing as expected Goal: Reduction in pain sensation Outcome: Progressing as expected Problem: Skin integrity Impaired (Risk or Actual) Goal: Wound healing Outcome: Progressing as expected Goal: Prevention of new skin breakdown Outcome: Progressing as expected Problem: Infection Risk Goal: Absence of infection Outcome: Progressing as expected Problem: Falls, Risk of Goal: Absence of falls Outcome: Progressing as expected Problem: Discharge Planning Goal: Adequate for discharge Outcome: Progressing as expected T [facility] 2022-10-14 07:37:13 Formatting of this n ote is different from the original. Addendum created 10/14/22 0737 by Fish Stover CRNA Intraprocedure Meds edited [facility] 2022-10-14 00:00:00 Formatting of this n ote might be different from the original. Problem: Discharge Planning Goal: Adequate for discharge Outcome: Progressing as expected Goal: Adequate to move to next level of care Outcome: Progressing as expected Goal: Knowledge of medication management Outcome: Progressing as expected Problem: Pain Goal: Control of pain at or below patient's documented comfort goal Outcome: Progressing as expected Goal: Reduction in pain sensation Outcome: Progressing as expected Problem: Skin integrity Impaired (Risk or Actual) Goal: Wound healing Outcome: Progressing as expected Goal: Prevention of new skin breakdown Outcome: Progressing as expected T Marianela Hess RN [facility] 2022-10-13 18:48:53 Formatting of this n ote might be different from the original. Surgery team in to see pt in am-notified that cbc just re-sent as it was reported that it was clotted-dr ordered midline iv as pt is very difficult to get labs/ivs-currently has 2 iv's-labs have been drawn x 2 for repeat bmp -both reported hemolyzed-midline placed and labs immediately drawn and sent-that one was reported hemolyzed-notified dr on rounds this afternoon that we have been unable to obtain bmp-recvd call from dr Rios-recvd orders-stat ekg done and sent to dr Rios-iv bolus infused as ordered-had us guided labs drawn and still took over 4 additional attempts-eventually obtained a pedi tube and is showing in process-pt up x 3 today to br/bsc and voided after mae removed-remains tachycardic at no more than 105.report to oncoming nurse at 1857. [facility] 2022-10-13 03:10:03 Formatting of this n ote might be different from the original. Problem: Discharge Planning Goal: Adequate for discharge Outcome: Progressing as expected Goal: Adequate to move to next level of care Outcome: Progressing as expected Goal: Knowledge of medication management Outcome: Progressing as expected Problem: Pain Goal: Control of pain at or below patient's documented comfort goal Outcome: Progressing as expected Goal: Reduction in pain sensation Outcome: Progressing as expected Problem: Skin integrity Impaired (Risk or Actual) Goal: Wound healing Outcome: Progressing as expected Goal: Prevention of new skin breakdown Outcome: Progressing as expected T [facility] 2022-10-12 19:09:21 Formatting of this n ote is different from the original. Patient: Chandu Weekly Procedure Summary Date: 10/12/22 Room / Location: [address] LOCATION Anesthesia Start: 950 Anesthesia Stop: 1828 Procedures: ROBOTIC ASSISTED LAPAROSCOPIC COLOSTOMY REVERSAL (Abdomen) COLOSTOMY REVERSAL (Abdomen) PARASTOMAL HERNIORRHAPHY (Abdomen) Diagnosis: Parastomal hernia without obstruction or gangrene (Parastomal hernia without obstruction or gangrene [K43.5]) Surgeons: Morena Rios MD Responsible Provider: Carlos Landon MD Anesthesia Type: General ASA Status: 3 Anesthesia Type: General Last vitals BP 116/82 (10/12/221904) Temp 36.4 ?C (97.5 ?F) (10/12/221824) Pulse 81 (10/12/22 190) Resp 15 (10/12/22 190) SpO2 95 % (10/12/221904) There were no known notable events for this encounter. Anesthesia Post Evaluation Patient location during evaluation: PACU Patient participation: complete - patient participated Level of consciousness: awake and alert Pain score: 3 Pain management: satisfactory to patient Airway patency: patent Cardiovascular status: acceptable and blood pressure returned to baseline Respiratory status: acceptable Hydration status: acceptable T AN-ANESTHESIOLOGY ANESTHESIOLOGIST [facility] 2022-10-12 10:41:43 Formatting of this n ote is different from the original. ATTESTATION: I agree with Dr. Reyes's operative note as detailed below. I was scrubbed and present for the entirety of the case. Morena Rios MD 10/18/2022 10:42 PM Colon and Rectal Surgery Operative Note Date: 10/12/2022 PREOPERATIVE DIAGNOSIS: History of rectal prolapse History of Kane's pouch Parastomal hernia POSTOPERATIVE DIAGNOSIS: History of rectal prolapse with intact rectopexy History of Kane's pouch Parastomal hernia PROCEDURE: Laparoscopic robotic assisted colostomy reversal with conversion to open, end to end stapled coloproctostomy Parastomal hernia repair with Vicryl mesh ICG perfusion angiography Flexible proctoscopy SURGEON: Morena Rios MD BULLARD OPERATOR: Marian Reyes DO ANESTHESIA: General endotracheal plus TAP block INTRAVENOUS FLUIDS: 3 L ESTIMATED BLOOD LOSS: 100 mL URINE OUTPUT: 450 mL COMPLICATIONS: None DRAINS: None SPECIMENS: ID Type Source Tests Collected by Time Destination 1 : colostomy Other OTHER SURGICAL PATHOLOGY EXAM Morena Rios MD 10/12/2022 1124 2 : descending colon Tissue COLON SURGICAL PATHOLOGY EXAM Morena Rios MD 10/12/2022 1448 3 : distal donut Other OTHER SURGICAL PATHOLOGY EXAM Morena Rios MD 10/12/2022 1506 4 : proximal donut Other OTHER SURGICAL PATHOLOGY EXAM Morena Rios MD 10/12/2022 1508 5 : hernia sac Tissue HERNIA SAC, ABDOMINAL SURGICAL PATHOLOGY EXAM Morena Rios MD 10/12/2022 1554 Implant Name Type Inv. Item Serial No. 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 LRB No. Used Action MESH SURG VCL [id number] ABS W[place]N #VWML - SN/A MESH MESH SURG VCL [id number] ABS [place]N #VWML N/A [employer] [id number] N/A 1 Implanted INDICATIONS FOR PROCEDURE: Ms. Medel is a 41 -year-old F with a past history of full thickness rectal prolapse who previously underwent robotic Kane's with rectopexy and end colostomy who presents today for colostomy reversal. We discussed the risks of surgery including, but not limited to bleeding, infection, anastomotic leak, need for an ileostomy or colostomy, conversion to open surgery, injury to surrounding structures including the ureter, small and large intestine, wound complications, hernias, postoperative ileus, venous thromboembolism and cardiopulmonary complications. The patient understood these risks and wished to proceed with the recommendations stated above. DESCRIPTION OF PROCEDURE: The patient was brought into the operating room and placed supine on the operating room table. Sequential compression devices were placed on both lower extremities. General endotracheal anesthesia was induced without complications. The patient was positioned in lithotomy. A Mae catheter was placed under sterile conditions. Ceftriaxone and Flagyl were given as perioperative antibiotics. The abdomen and perineum were prepped and draped in the usual sterile fashion. A time out was performed which was correct. We started with colostomy take down. Circumferential dissection using a combination of bovie cautery and sharp dissection with scissors was used at the mucocutaneous junction and carried down to the abdominal fascia to separate the descending colon from the surrounding subcutaneous tissue. Of note, there was a large parastomal hernia containing colon and omentum with dense adhesions which required dissection. Once the descending colon was completely freed, finger sweep confirmed no additional adhesions remained intra abdominally. A healthy portion of proximal descending colon was chosen, cleared from surrounding mesentery and epiploica, and a pursestring maker was used, prior to transecting the colostomy stump. The colostomy trim was passed off the field as specimen. A 29 mm anvil was secured in place. The colon was then returned into the abdomen and a laparoscopic mariana system was placed in the stoma trephine incision. A robotic trocar was placed through the mariana system and the abdomen insufflated to 12 mm Hg. Of note, maintaining adequate insufflation was challenging due to the large parastomal hernia. We then obtained access to the abdomen over the left upper quadrant, using a 8 mm robotic trocar without event. We placed 2 additional 8mm Davincii trocars, from left upper quadrant anterior axillary line towards the right lower quadrant anterior axillary line, 8-10 cm apart from each other. A 12mm robotic trocar was then placed in the right lateral quadrant midline to the anterior superior iliac spine. A 5mm airseal port was placed in the right upper quadrant. The patient was placed in 25 degrees Trendelenburg with 8 degrees left side up. The EntraTympanicinci Robot was docked. Survey of the abdomen was challenging due to inadequate insufflation due to size of the parastomal hernia fascial defect and sac. There were several attempts to maintain insufflation for adequate visualization, however these were futile. Due to this, the decision was made to convert to an open procedure through a midline laparotomy incision. The robot was undocked and trocars removed. We obtained access to the abdomen with a midline laparotomy incision from the supraumbilical region to the pubic symphysis using a #10 scalpel and Bovie cautery to transect through subcutaneous tissues down to fascia. The fascia was elevated using two tyler clamps and entered sharply while protecting the underlying bowel throughout the entirety of the incision. We then placed the patient in trendelenburg position with the right side elevated, placed an extra Mariana large wound protector and obtained appropriate exposure with a Bookwalter retractor. General survey of the abdomen revealed previous mobilization of the descending colon which allowed for easy reach without tension to the rectum. The previously performed rectopexy was intact. Dr. Reyes then went between the legs and dilated the anus serially and carefully with the EEA sizers. The 29 mm stapler was advanced into the rectal stump. Dr. Reyes then opened the stapler so the the spike came thru the middle of the staple line. I ensured the conduit was not twisted and mated the anvil to the post with an audible and tactile click. The stapler was slowly closed. I ensured no appendages or small bowel were included in the staple line. The stapler was closed for 30 seconds then fired. There were two intact donuts sent separately as proximal and distal margins. The pelvis was filled with saline. Dr. Reyes performed a flexible sigmoidoscopy. The anastomosis was intact and there were no bubbles in the pelvis. The anastomosis staple line was intact without bleeding.The small bowel was placed above the descending colon conduit to reduce risk of internal herniation. Post anastomosis ICG perfusion angiography demonstrated good blood flow. Attention was then turned to the large parastomal hernia defect. The hernia sac was resected and passed off the field as specimen. The fascial defect was closed with figure of 8 PDS suture with a bridging Vicryl mesh cut to size due to loss of domain and poor fascia present. At this point, we irrigated the abdomen with copious amounts of sterile saline. We ensured that there was adequate hemostasis. We closed the fascia of the midline laparotomy using 0 PDS suture. We irrigated both incisions copiously until the effluent was clear. We injected a total of 100 mL of 0.25% Marcaine with epi, injectable saline, and 20cc Exparel into the skin, subcutaneous tissue and fascia throughout her midline incision. We closed the skin of the midline wound and hernia site with interrupted deep dermal sutures and packed the intervening segments with telfa strips. Sterile Aquacel dressings were then applied. The trocar sites were closed with interrupted deep dermal Monocryl and Dermabond. The patient awoke from general endotracheal anesthesia in stable condition and was taken to PACU in stable condition. Sponge and needle counts were correct x2. Dr. Rios was present and scrubbed for the entire procedure. Marian Reyes DO General Surgery PGY-3 [facility] 2022-10-12 10:41:43 Formatting of this n ote is different from the original. BRIEF OPERATIVE NOTE Date of Surgery: 10/12/2022 Surgeon(s) and Role: * Morena Rios MD - Primary * Sherie Calhoun MD - Assisting * Marian Reyes DO - Resident - Assisting Pre-Op Diagnosis: Parastomal hernia without obstruction or gangrene [K43.5] Post-Op Diagnosis Codes: * Parastomal hernia without obstruction or gangrene [K43.5] Procedures: Procedure(s) (LRB): ROBOTIC ASSISTED LAPAROSCOPIC COLOSTOMY REVERSAL (N/A) COLOSTOMY REVERSAL (N/A) PARASTOMAL HERNIORRHAPHY (N/A) CPT: 71881,50031, 15981, 21014 Any Complications Encounters: None Estimated Blood Loss: 100 mL Specimens Removed: ID Type Source Tests Collected by Time Destination 1 : colostomy Other OTHER SURGICAL PATHOLOGY EXAM Morena Rois MD 10/12/2022 1124 2 : descending colon Tissue COLON SURGICAL PATHOLOGY EXAM Morena Rios MD 10/12/2022 1448 3 : distal donut Other OTHER SURGICAL PATHOLOGY EXAM Morena Rios MD 10/12/2022 1506 4 : proximal donut Other OTHER SURGICAL PATHOLOGY EXAM Morena Rios MD 10/12/2022 1508 5 : hernia sac Tissue HERNIA SAC, ABDOMINAL SURGICAL PATHOLOGY EXAM Morena Rios MD 10/12/2022 1554 Implant Name Type Inv. Item Serial No. 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 LRB No. Used Action MESH SURG VCL [id number] ABS WVN #VWML - SN/A MESH MESH SURG VCL [id number] ABS WVN #VWML N/A [employer] [id number] N/A 1 Implanted Patient's Condition: Fair Findings: Large parastomal hernia containing omentum and large bowel Rectal stump with pexy sutures intact Stapled end to end tension free colorectal anastomosis Any other important information: None Please see dictated operative report for additional detail. Marian Reyes DO General Surgery PGY-3 [facility] 2022-10-09 10:25:05 Formatting of this n ote might be different from the original. I spoke with Weekly this morning to verify she has antibiotics at home for use with her bowel prep on 10/11/2022 and she verified that she does have them. Yaneli Santos RN [facility] 2022-10-05 09:15:02 Formatting of this n ote might be different from the original. Images from the original note were not included. Procedure is at: [place] [id number]. The Day Surgery is location on the left corner of [facility] closest to the [facility]. On that NW corner you will see a sign that states "Surgery". Please go inside that door and sign in at that desk. Do not eat anything the morning of your procedure starting at Midnight or 8 hours before arrival time, which ever is longer. You may drink water, sprite or gatorade the morning of the procedure, but only up until a certain point. Do not drink anything within 2 hours of your arrival. You may take your medications as instructed below with a sip of water unless otherwise directed by physician. MAC Cases may continue Diuretics. Anticoagulants will be per physician Guidance. Report to [facility], [address] [place] [address], Day Surgery Unit on 10-12-22 [facility] will call you the business day before your procedure to let you know what time to arrive. Please note: You may not travel home alone and that includes in a taxi, bus, or Uber. We must speak to your Responsible Adult before your procedure the morning of your procedure. [facility] [place] 2022-10-02 13:50:04 Formatting of this n ote is different from the original. Name/ MRN / Age / Gender: Chandu Medel, [id number] 41 year old female BMI: Estimated body mass index is 41.6 kg/m? as calculated from the following: Height as of 09/24/22: 1.651 m (5' 5"). Weight as of 09/24/22: 113.4 kg (250 lb). Allergies: Patient has no known allergies. Last Vitals: BP Readings from Last 1 Encounters: 09/24/22 (!) 175/124 Pulse Readings from Last 1 Encounters: 09/24/22 117 SpO2 Readings from Last 1 Encounters: 09/24/22 95% Date of Surgery: 10/12/2022 Surgeon: Morena Rios MD Procedure: ROBOTIC ASSISTED LAPAROSCOPIC COLOSTOMY REVERSAL (Abdomen) OR Location: [facility] LOCATION Anesthesia Preop Eval (physical exam) Copied forward and updated from: 07/03/2022 Anesthesia Preop: Chart Review and [id number] [facility] questionnaire answers incorporated [facility] Communication: Spoke with pt. She understands to hold her ozempic for one week prior to the procedure. Maral Lopez RN 10/02/2022 2:11 PM NPO Status Verified PONV Risk Factors: female PONV Risk Score: 1 Anesthesia History Anesthesia History Negative per Chart Review (-) Hx of anesthetic complications (-) Hx of PONV (-) Hx of malignant hyperthermia (-) Pt reports no hx of difficult airway Previous Anesthetics/Airways Additional Comments: 07/03/2022 ETT 7.0 at 21 cm, Cuffed, DL, Mil 2, g1-FVOG, 1 approach 02/25/22: ETT,7.0, cuffed, DL x 1, intubating stylet and OPA, oral, Denney # 2, grade I - full view of glottis 02/23/22: ETT, 7.0, cuffed, DL x 1, intubating stylet and OPA, oral, Denney # 2, grade IIa - partial view of glottis 12/12/21: TIVA Cardiovascular METS: 4 METS Comments: Pt's activity is very limited due to stomach pain. (-) Chest pain with 1-2 flights of stairs (+) Hypertension ( lisinopril-hctz) (-) Hx of cardiac stress test (-) Hx of cardiac cath (-) Angina/Chest Pain Within Last Year (-) Patient does not report prior NC (-) CAD (-) Valvular problems/murmurs (-) Dysrhythmias (-) Pt reports prior cardiac surgery (-) No cardiovascular devices present (-) CHF Pulmonary Pulmonary ROS Negative per Chart Review (-) Patient does not report snoring or stopping breathing during sleep (-) Home O2 (-) COPD (-) Asthma (-) Tobacco use (-) COVID-19 within the past 6 weeks (-) Influenza within the past 6 weeks (-) Pneumonia within the last 6 weeks (-) Recent bronchitis or URI Neuro/Musculoskeletal Comments: 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 She is losing weight, not smoking. Her rectal tone and prolapse continue to improve. Plan for colostomy reversal Hx of large rectal prolapse with absent sphincter tone. S/P Laparoscopic robotic-assisted mesh rectopexy on 02/23/22. Her post-operative course was complicated by recurrence on POD1. She subsequently underwent a Laparoscopic robotic-assisted low anterior resection with end colostomy on 02/25/22. (+) Large parastomal hernia that is extremely symptomatic Plan: Robotic colostomy reversal scheduled 07/03/22 ? To ED on 05/31/22 with abdominal pain. Dx: Ventral hernia without obstruction or gangrene To ED on 05/10/22 with abdominal pain. Final Dx: large parastomal hernia (-) GERD (-) Liver disease Hematology Hematology ROS Negative per Chart Review Comments: 07/05/22 08:37 WBC x10^3: 10.84 RBC x10^6: 3.99 HGB: 12.5 HCT: 38.4 PLT x10^3: 290 (-) PE/DVT (-) Prior blood transfusion (-) Not on anti-coagulant therapy Renal Renal ROS Negative per Chart Review Comments: 07/05/22 08:36 NA: 136 K: 4.3 CL: 106 CO2 TOTAL: 25 AGAP: 5 BUN: 13 GLUCOSE: 99 CREATININE: 0.52 eGFR: 129.3 (-) Renal disease (-) Dialysis Skin Skin ROS Negative per Chart Review Endo/Other Endocrine/other ROS Negative per Chart Review (-) Diabetes Mellitus Other (-) 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 Hold on DOS. Phentermine: Alert [facility] anesthesiologist SGLT2 Inhibitors: "gliflozins" to be held for 3 days prior to elective surgeries MAC Cases: Continue taking MOE inhibitors and ARBs ASA Classification ASA: 3 ASA Comments: Current Medications: No current facility-administered medications for this encounter. Current Outpatient Medications Medication Sig Dispense Refill ondansetron (ZOFRAN) 4 mg tablet Take 1 tablet by mouth every 8 (eight) hours as needed for Nausea and Vomiting (N/V) for up to 3 doses. 3 tablet 0 oxyCODONE 5 mg immediate release tablet Take 1 tablet by mouth every 4 (four) hours as needed for Pain (scale 4-6). Indications: acute pain 28 tablet 0 acetaminophen (TYLENOL EXTRA STRENGTH) 500 mg tablet Take 2 tablets by mouth every 8 (eight) hours. 180 tablet 0 celecoxib 200 mg capsule Take 1 capsule by mouth in the morning. 14 capsule 0 gabapentin 300 mg capsule Take 1 capsule by mouth in the morning and 1 capsule at noon and 1 capsule in the evening. 42 capsule 0 methocarbamoL 750 mg tablet Take 1 tablet by mouth 4 (four) times daily. 60 tablet 1 polyethylene glycol 3350 (MIRALAX) 17 gram powder Take 1 Packet by mouth in the morning. 30 Packet 0 ondansetron (ZOFRAN) 4 mg tablet Take 1 tablet by mouth every 8 (eight) hours as needed for Nausea and Vomiting (N/V) for up to 3 doses. 3 tablet 0 lisinopriL-hydrochlorothi azide 20-12.5 mg per tablet Take 1 tablet by mouth every morning. Previous Surgeries: Past Surgical History: Procedure Laterality Date COLONOSCOPY N/A 12/12/2021 Surgeon: Duy Woodruff MD; Location: [facility] OR LOCATION CYSTOSCOPY N/A 02/25/2022 Surgeon: Oneal Anderson MD; Location: [facility] OR LOCATION DIAGNOSTIC LAPAROSCOPY N/A 02/25/2022 Surgeon: Oneal Anderson MD; Location: [facility] OR LOCATION HYSTERECTOMY Partial LAPAROSCOPIC ROBOTIC ASSISTED LOWER ANTERIOR RESECTION N/A 02/25/2022 Surgeon: Morena Rios MD; Location: [facility] OR [facility] LAPAROSCOPIC ROBOTIC ASSISTED RECTOPEXY N/A 02/23/2022 Surgeon: Morena Rios MD; Location: [facility] OR [facility] REPAIR HERNIA ROBOT-ASSISTED PARASTOMAL (SHX) N/A 07/03/2022 Surgeon: Morena Rios MD; Location: [facility] OR [facility] Anesthesia Physical Exam General no apparent distress and alert and oriented x 3 Neuro/Psych neurological Nonfocal Dental no notable dental hx Abdominal GI exam normal Airway Mallampati score:II TM distance:> 5 cm Neck ROM: full Mouth opening:normal Extremity Normal extremity Pulmonary pulmonary exam normal Other Cardiovascular cardiovascular exam normal Anesthesia Plan ASA Status: 3 Plan discussed during pre-op evaluation: General Anesthetic plan on DOS: General Plan to include: IV induction and ETT Anesthesia plan discussed with: 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 Orders from Uziel SCOTT PH: [phone] Order date: 08/23/2022 Order: [id number] Skin Barrier, Powder, per oz Signed, faxed, and submitted to be uploaded into [employer]. Lakshmi Mesa RN Lakshmi Mesa RN [facility] 2022-09-11 15:45:50 Formatting of this n ote might be different from the original. Received fax from [email or web address] for ostomy supplies refill. The form placed at the [facility] desk in folder. Kika Bella [facility]
[2023-12-21] MEDS ORDERED: HYDROCODONE/APAP 10/325 TAB ONE (20:26)
--- NOTE | 2023-12-21 21:39 | RAD REPORT ---
EXAM: XR Knee Left 3 View HISTORY: BR MAIN PAIN Bed: COMPARISON: None TECHNIQUE: 3 views of the left knee were obtained. FINDINGS: Moderate knee effusion is seen. There is no evidence of acute fracture or dislocation. No significant degenerative changes are seen. No soft tissue swelling or other soft tissue abnormality is present. IMPRESSION: Moderate knee joint effusion. No evidence of acute osseous abnormality.
--- NOTE | 2023-12-21 21:52 | EDPHYS ---
Physician Documentation [facility] [place], [place] Name: Julia Weekly Age: 42 yrs Sex: Female : 1980 Arrival Date: 12/21/2023 Time: 19:52 Bed 15 Private MD: ED Physician Sarai Victor HPI: 12/20 21:51 This 42 yrs old Female presents to ER via Ambulatory with complaints of Knee Injury. kb 21:51 Pt is a 42 year old female who presents for left knee pain that started yesterday. kb States she stepped up and felt a pop in her knee. Denies any other injuries. . 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 - Infectious Disease History:: Denies. - Social history:: Smoking status: Patient denies any tobacco usage or history of. ROS: 21:48 Constitutional: As per HPI kb Exam: 21:48 Constitutional: This is a well developed, well nourished patient who is awake, alert, kb and in no acute distress. Head/Face: Normocephalic, atraumatic. ENT: Moist Mucous membranes Cardiovascular: Regular rate Respiratory: Respirations even and unlabored. No increased work of breathing. Talking in full sentences Skin: Warm, dry with normal turgor. Normal color. Neuro: Awake and alert, GCS 15, oriented to person, place, time, and situation. 21:48 Musculoskeletal/extremity: Extremities: grossly normal except: noted in the left knee: pain, ROM: limited active range of motion due to pain, Circulation is intact in all extremities. Sensation intact. Weight bearing: can bear weight with assistance only, Vital Signs: 20:11 BP 201 / 125; Pulse 104; Resp 18; Temp 99.1; Pulse Ox 94% ; Weight 117.93 kg; Height 5 bm8 ft. 5 in. ; Pain 8/10; 20:35 BP 164 / 102; Pulse 91; Resp 17; Pulse Ox 98% on R/A; Pain 5/10; rg5 21:25 BP 162 / 90; Pulse 88; Resp 17; Pulse Ox 99% on R/A; Pain 5/10; rg5 20:11 Body Mass Index 43.27 (117.93 kg, 165.1 cm) bm8 20:11 Pain Scale: Adult bm8 20:35 Pain Scale: Adult rg5 21:25 Pain Scale: Adult rg5 MDM: 19:54 Medical Screening Exam initiated kb 21:51 Differential diagnosis: fracture, sprain. Data reviewed: vital signs, nurses notes. kb Counseling: I had a detailed discussion with the patient and/or guardian regarding the historical points, exam findings, and any diagnostic results supporting the discharge/admit diagnosis, radiology results, the need for outpatient follow up, a orthopedic surgeon, to return to the emergency department if symptoms worsen or persist or if there are any questions or concerns that arise at home. 12/20 20:08 Order name: Knee Left 3 View XRAY; Complete Time: 21:41 kb 12/20 21:48 Order name: Knee Immobilizer; Complete Time: 22:15 kb 12/20 21:48 Order name: Crutches; Complete Time: 22:15 kb Administered Medications: 20:29 Drug: Maize PO 10 mg-325 mg 1 tabs PO once Route: PO; vc1 21:30 Follow up: Response: No adverse reaction; Pain is decreased rg5 Disposition Summary: 12/21/23 21:52 Discharge Ordered Notes: Location: Home kb Condition: Stable kb Diagnosis - Pain in left knee kb Followup: kb - With: Emergency Department - When: As needed - Reason: Worsening of condition Followup: kb - With: Private Physician - When: 2 - 3 days - Reason: Recheck today's complaints, Continuance of care, Re-evaluation by your physician Discharge Instructions: - Discharge Summary Sheet kb - Knee Sprain, Adult, [id number] kb Forms: - Medication Reconciliation Form kb - Antibiotic Education kb - Prescription Opioid Use kb - Patient Portal Instructions kb - Leadership Thank You Letter kb Prescriptions: - Diclofenac Sodium 75 mg Oral tablet, delayed release (enteric coated) - take 1 tablet ORAL route 2 times per day As needed; 30 tablet; Refills: 0, kb Product Selection Permitted Signatures: Dispatcher [employer] EDCamille Lubin FNP-C FNP-Chrissy Mari, Julee, RN RN vc1 Guy Rowley, RN RN bm8 Diego Eldridge RN rg5
--- NOTE | 2023-12-21 21:52 | ER ---
Nurse's Notes [facility] Name: Julia Weekly Age: 42 yrs Sex: Female : 1980 Arrival Date: 12/21/2023 Time: 19:52 Bed 15 Private MD: Diagnosis: Pain in left knee Presentation: 12/20 20:11 Chief complaint: Patient states: I was going up stairs last night and heard a loud pop bm8 from left knee and now its hurts to walk. Coronavirus screen: At this time, the client does not indicate any symptoms associated with coronavirus-19. Ebola Screen: Patient negative for fever greater than or equal to 101.5 degrees Fahrenheit, and additional compatible Ebola Virus Disease symptoms Patient denies exposure to infectious person. Patient denies travel to an Ebola-affected area in the 21 days before illness onset. No symptoms or risks identified at this time. Initial Sepsis Screen: Does the patient meet any 2 criteria? No. Patient's initial sepsis screen is negative. Does the patient have a suspected source of infection? No. Patient's initial sepsis screen is negative. Risk Assessment: Do you want to hurt yourself or someone else? Patient reports no desire to harm self or others. Onset of symptoms was December 20, 2023 at 20:00. 20:11 Method Of Arrival: Ambulatory bm8 20:11 Acuity: ANGEL 3 bm8 Triage Assessment: 20:13 General: Appears in no apparent distress. uncomfortable, Behavior is calm, cooperative, bm8 appropriate for age. Pain: Complains of pain in left knee Pain currently is 8 out of 10 on a pain scale. Quality of pain is described as aching, crampy. EENT: No deficits noted. No signs and/or symptoms were reported regarding the EENT system. Neuro: No deficits noted. Cardiovascular: No deficits noted. Respiratory: No deficits noted. GI: No deficits noted. : No deficits noted. Derm: No deficits noted. Musculoskeletal: Circulation, motion, and sensation intact. Capillary refill < 3 seconds, in bilateral fingers. toes. Range of motion: limited in left knee Swelling present in left knee Reports pain in left leg Pain is 8 out of 10 on a pain scale. Injury Description: knee pain. 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 - Infectious Disease History:: Denies. - Social history:: Smoking status: Patient denies any tobacco usage or history of. Screenin:[facility] ED Fall Risk Assessment (Adult) History of falling in the last 3 months, rg5 including since admission No falls in past 3 months (0 pts) Confusion or Disorientation No (0 pts) Intoxicated or Sedated No (0 pts) Impaired Gait Yes (1 pt) Mobility Assist Device Used Yes (1 pt) Altered Elimination Yes (1 pt) Score/Fall Risk Level 0 - 2 = Low Risk Oriented to surroundings, Maintained a safe environment, Hourly rounding (assess needs \T\ fall precautionary measures) done. Abuse screen: Denies threats or abuse. Nutritional screening: No deficits noted. Tuberculosis screening: No symptoms or risk factors identified. Assessment: 20:15 General: Appears in no apparent distress. comfortable, Behavior is calm, cooperative, rg5 appropriate for age. 20:15 Pain: Complains of pain in left knee Pain currently is 7 out of 10 on a pain scale. rg5 Quality of pain is described as aching, Pain began 1 day ago. Neuro: Level of Consciousness is awake, alert, obeys commands, Oriented to person, place, time. Cardiovascular: Capillary refill < 3 seconds Patient's skin is warm and dry. Respiratory: Airway is patent Trachea midline Respiratory effort is even, unlabored, Respiratory pattern is regular, symmetrical. GI: Abdomen is round obese. : No signs and/or symptoms were reported regarding the genitourinary system. EENT: No deficits noted. Derm: Skin is intact, Skin is dry, Skin is normal. Musculoskeletal: Circulation, motion, and sensation intact. Range of motion: intact in all extremities. 21:25 Reassessment: Patient and/or family updated on plan of care and expected duration. Pain rg5 level reassessed. Patient is alert, oriented x 3, equal unlabored respirations, skin warm/dry/pink. 22:00 Reassessment: Patient and/or family updated on plan of care and expected duration. Pain rg5 level reassessed. Patient is alert, oriented x 3, equal unlabored respirations, skin warm/dry/pink. Patient states feeling better. Vital Signs: 20:11 BP 201 / 125; Pulse 104; Resp 18; Temp 99.1; Pulse Ox 94% ; Weight 117.93 kg; Height 5 bm8 ft. 5 in. ; Pain 8/10; 20:35 BP 164 / 102; Pulse 91; Resp 17; Pulse Ox 98% on R/A; Pain 5/10; rg5 21:25 BP 162 / 90; Pulse 88; Resp 17; Pulse Ox 99% on R/A; Pain 5/10; rg5 20:11 Body Mass Index 43.27 (117.93 kg, 165.1 cm) bm8 20:11 Pain Scale: Adult bm8 20:35 Pain Scale: Adult rg5 21:25 Pain Scale: Adult rg5 ED Course: 19:54 Patient arrived in ED. mr 19:54 Camille Wooten, [facility]. kb 19:54 Sarai Victor MD is Attending Physician. kb 20:13 Triage completed. bm8 20:13 Arm band placed on right wrist. bm8 20:15 Patient has correct armband on for positive identification. Bed in low position. Call rg5 light in reach. Side rails up X 1. 20:15 No provider procedures requiring assistance completed. rg5 20:29 Diego Eldridge, RN is Primary Nurse. rg5 21:07 Knee Left 3 View XRAY In Process Unspecified. EDMS 22:43 Provided Education on: post er care. rg5 22:43 Patient did not have IV access during this emergency room visit. rg5 Administered Medications: 20:29 Drug: Emmett PO 10 mg-325 mg 1 tabs PO once Route: PO; vc1 21:30 Follow up: Response: No adverse reaction; Pain is decreased rg5 Medication: 20:15 VIS not applicable for this client. rg5 Outcome: 21:52 Discharge ordered by . kb 22:42 Discharged to home ambulatory, rg5 22:42 Condition: stable 22:42 Discharge instructions given to patient, Instructed on discharge instructions, follow up and referral plans. Demonstrated understanding of instructions, follow-up care, Prescriptions given X 1, 22:43 Patient left the ED. rg5 Signatures: Dispatcher [employer] EDMS Camille Wooten, DISTRICT MANAGER-C DISTRICT MANAGER-Ckb Garcia, Violette, Reg Reg mr Julee Guerra, RN RN vc1 Guy Rowley, RN RN bm8 Diego Eldridge, RN RN rg5
[2023-12-21 23:16] VITALS: TEMP 99.1
[2023-12-21 23:18] VITALS: BP 162/90; O2SAT 99
== END 2023-12-21 22:43 | disposition home or self-care (01) ==
LOC: ER 19:52
DX: M25.562 Pain in left knee (principal)
CPT/HCPCS: 99283